=== PATIENT | male | born 1965 | race Two or more races ===

== ENCOUNTER 2016-10-12 02:31 | Emergency (ER) | payer BC, OTHER ==
[2016-10-12] MEDS ORDERED: Sodium Chloride 0.9% 1,000 ML IV ONE ×2 (02:50→04:13)
[2016-10-12] MEDS ORDERED: methylPREDNISolone Sodium Succinate 125 MG/2 ML SDV IVPUSH ONE (02:50)
[2016-10-12] MEDS ORDERED: Ondansetron 4 MG/2 ML SDV IVPUSH ONE (02:51)
[2016-10-12] MEDS ORDERED: methylPREDNISolone Sodium Succinate 125 MG/2 ML SDV ONE (02:57)
[2016-10-12] MEDS ORDERED: diphenhydrAMINE 50 MG/ML SDV IVPUSH ONE (03:11)
[2016-10-12] MEDS ORDERED: Piperacillin/Tazobactam 3.375 GM in Sodium Chloride 0.9% 100 ML IV ONE (03:11)
[2016-10-12] MEDS ORDERED: Vancomycin 500 MG SDV IV ONE (03:12)
[2016-10-12 03:16] LABS: CHLORIDE,CL 104 mmol/L (98-107); SODIUM,NA 142 mmol/L (136-145)
[2016-10-12] MEDS ORDERED: LORazepam 2 MG/ML MDV IVPUSH ONE (03:21)
--- NOTE | 2016-10-12 03:22 | EDM.PDOC ---
ED HPI GENERAL MEDICAL PROBLEM - General Chief Complaint: General Stated Complaint: chills, vomiting, diarrhea Time Seen by Provider: 10/12/16 02:40 Source of Information: Reports: Patient History Limitations: Reports: No Limitations - History of Present Illness INITIAL COMMENTS - FREE TEXT/NARRATIVE: The patient presents to the ER with complaint of chills, myalgias, shivering and trembling, nausea with vomiting x 2, diarrhea x 1, and brief episodic chest pain prior to arrival in the ER. He also describes difficulty swallowing and the feeling of "swelling of his throat" and shortness of breath as well. He denies current chest pain, orthopnea, and recent or current exercise intolerance. He reports the symptoms started at about 9 pm this evening and have increased significantly overnight. He reports about 1 week ago he had a "bug bite of his forehead" and he subsequently had swelling of his ankles and feet, swelling of his tongue and throat, and difficulty breathing. He did not seek medical attention but took multiple doses of Benadryl at the time and the symptoms resolved over 1 day. - Related Data Allergies Allergy/AdvReac Type Severity Reaction Status Date / Time No Known Allergies Allergy Verified 12/21/14 08:06 Home Meds: Home Meds ALPRAZolam [Xanax] 0.5 mg PO 10/12/16 [History] Lisinopril 10 mg PO PRN 10/12/16 [History] Past Medical History HEENT History: Reports: Allergic Rhinitis Cardiovascular History: Reports: High Cholesterol, Hypertension Respiratory History: Reports: COPD Neurological History: Reports: Migraines, Other (See Below) Other Neuro History: History of cluster headaches Psychiatric History: Reports: Anxiety - Past Surgical History GI Surgical History: Reports: Appendectomy, Cholecystectomy Social & Family History - Tobacco Use Smoking Status *Q: Current Every Day Smoker Years of Tobacco use: 27 Second Hand Smoke Exposure: Yes - Alcohol Use Days Per Week of Alcohol Use: 2 Number of Drinks Per Day: 2 Total Drinks Per Week: 4 - Recreational Drug Use Recreational Drug Use: Yes Drug Use in Last 12 Months: Yes Recreational Drug Type: Reports: LSD (Acid), Marijuana/Hashish, Methamphetamine Recreational Drug Use Frequency: Daily Recreational Drug Last Use: Daily - Living Situation & Occupation Living situation: Reports: with Significant Other Occupation: Employed ED ROS GENERAL - Review of Systems Review Of Systems: ROS reveals no pertinent complaints other than HPI. ED EXAM, GENERAL - Physical Exam Exam: See Below Exam Limited By: No Limitations General Appearance: Alert, WD/WN, No Apparent Distress, Anxious, Other (Chills and trembling ) Eye Exam: Bilateral Eye: EOMI, Normal Inspection, PERRL Ears: Normal External Exam, Normal Canal, Hearing Grossly Normal, Normal TMs Ear Exam: Bilateral Ear: Auricle Normal, Canal Normal, TM normal Nose: Normal Inspection, Normal Mucosa, No Blood Throat/Mouth: Normal Inspection, Normal Lips, Normal Teeth, Normal Gums, Normal Oropharynx, Normal Voice, No Airway Compromise Head: Atraumatic, Normocephalic Neck: Normal Inspection, Supple, Non-Tender, Full Range of Motion, Other (No nuchal rigidity.). No: Lymphadenopathy (L), Lymphadenopathy (R), Tender Lateral , Tender Midline Respiratory/Chest: No Respiratory Distress, Lungs Clear, Normal Breath Sounds, No Accessory Muscle Use, Chest Non-Tender Cardiovascular: Normal Peripheral Pulses, No Edema, No Gallop, No Murmur, No Rub , Tachycardia (Mild tachycardia with rate 100-110's.) Peripheral Pulses: 2+: Radial (L), Radial (R), Posterior Tibial (L), Posterior Tibial (R), Dorsalis Pedis (L), Dorsalis Pedis (R) GI/Abdominal: Normal Bowel Sounds, Soft, Non-Tender, No Organomegaly, No Distention. No: Guarding, Rigid, Rebound Back Exam: Normal Inspection, Full Range of Motion. No: CVA Tenderness (L), CVA Tenderness (R), Paraspinal Tenderness, Vertebral Tenderness Extremities: Normal Inspection, Normal Range of Motion, Non-Tender, No Pedal Edema, Normal Capillary Refill Neurological: Alert, Oriented, CN II-XII Intact, Normal Cognition, Normal Gait, Normal Reflexes, No Motor/Sensory Deficits Psychiatric: Normal Affect, Normal Mood Skin Exam: Warm, Dry, Intact, Normal Color, No Rash Lymphatic: No Adenopathy EKG INTERPRETATION EKG Date: 10/12/16 Rhythm: NSR Rate (Beats/Min): [address]: Normal P-Wave: Present QRS: Normal ST-T: Other (Peaked T waves) QT: Normal Comparison: No Change (Other than tachycardia and electrical interference.) EKG Interpretation Comments: Electrical interference that is significant and EKG repeated with persistent electrical interference likely secondary to patient's chills, shivering, and trembling. No evidence of ST elevation or other signs of ischemia. Course - Vital Signs Last Recorded V/S: Last Vital Signs Temp 36.3 C 10/12/16 02:32 Pulse 75 10/12/16 02:32 Resp 24 H 10/12/16 02:32 BP 154/73 H 10/12/16 02:32 Pulse Ox 100 10/12/16 02:32 - Orders/Labs/Meds Orders: Active Orders 24 hr Category Date Time Status EKG Documentation Completion [RC] ASDIRECTED Care 10/12/16 02:50 Active Chest 1V Frontal [CR] Stat Exams 10/12/16 02:50 Taken CULTURE BLOOD [BC] Stat Lab 10/12/16 02:40 Received CULTURE BLOOD [BC] Stat Lab 10/12/16 02:48 Received DRUG SCREEN, URINE [URCHEM] Stat Lab 10/12/16 02:52 Uncollected UA W/MICROSCOPIC [URIN] Stat Lab 10/12/16 02:49 Uncollected Blood Culture x2 Reflex Set [OM.PC] Stat Oth 10/12/16 02:49 Ordered Labs: Laboratory Tests 10/12/16 10/12/16 Range/Units 02:48 02:48 WBC 9.9 (4.0-10.2) K/uL RBC 6.11 H (4.33-5.41) M/uL Hgb 17.6 H D (13.1-16.8) g/dL Hct 50.7 H (39.0-49.0) % MCV 83.0 L (84.0-98.0) fL MCH 28.8 (28.2-33.3) pg MCHC 34.7 (31.7-36.0) g/dL RDW 14.3 H (11.2-14.1) % Plt Count 192 (150-350) K/uL Neut % (Auto) 80.1 H (45.0-80.0) % Lymph % (Auto) 17.4 (10.0-50.0) % [place] % (Auto) 2.1 (2.0-14.0) % Eos % (Auto) 0.3 (0.0-5.0) % Baso % (Auto) 0.1 (0.0-2.0) % Neut # (Auto) 7.91 H (1.40-7.00) K/uL Lymph # (Auto) 1.72 (0.50-3.50) K/uL [place] # (Auto) 0.21 (0.00-1.00) K/uL Eos # (Auto) 0.03 (0.00-0.50) K/uL Baso # (Auto) 0.01 (0.00-0.20) K/uL Sodium 142 (136-145) mmol/L Potassium 3.8 (3.5-5.1) mmol/L Chloride 104 (98-107) mmol/L Carbon Dioxide 24.3 (21.0-32.0) mmol/L BUN 9 (7-18) mg/dL Creatinine 1.16 (0.51-1.17) mg/dL Est Cr Clr Drug Dosing 72.07 mL/min Estimated GFR (MDRD) > 60 mL/min Glucose 130 H (74-106) mg/dL Calcium 8.9 (8.5-10.1) mg/dL Total Bilirubin 0.3 (0.2-1.0) mg/dL AST 22 (15-37) U/L ALT 39 (12-78) U/L Alkaline Phosphatase 90 (46-116) IU/L Creatine Kinase 168 (26-308) U/L Creatine Kinase Index 0.2 (0.0-2.5) % CK-MB (CK-2) 0.30 (0.00-3.60) ng/mL Troponin I 0.000 (0.000-0.056) ng/mL C-Reactive Protein 0.2 (<=0.9) mg/dL Total Protein 7.9 (6.4-8.2) g/dL Albumin 4.0 (3.4-5.0) g/dL Ethyl Alcohol 0.005 (0.000-0.080) g/dL Meds: Medications Discontinued Medications Generic Name Dose Route Start Last Admin Trade Name Freq PRN Reason Stop Dose Admin Cetirizine HCl 10 mg 10/12/16 03:11 10/12/16 03:27 Zyrtec PO 10/12/16 03:12 10 mg ONETIME ONE Administration Diphenhydramine HCl 50 mg 10/12/16 03:11 10/12/16 03:16 Benadryl IVPUSH 10/12/16 03:12 50 mg ONETIME ONE Administration Sodium Chloride 1,000 mls @ 1,000 mls/hr 10/12/16 02:50 10/12/16 02:54 Normal Saline IV 10/12/16 03:49 1,000 mls/hr .BOLUS ONE Administration Piperacillin Sod/Tazobactam 100 mls @ 200 mls/hr 10/12/16 03:11 10/12/16 04: 01 Sod 3.375 gm/ Sodium Chloride IV 10/12/16 03:40 Not Given ONETIME ONE Lorazepam 1 mg 10/12/16 03:21 10/12/16 03:28 Ativan IVPUSH 10/12/16 03:22 1 mg ONETIME ONE Administration Methylprednisolone Sodium Succinate 250 mg 10/12/16 02:50 10/12/16 02:56 Solu-Medrol IVPUSH 10/12/16 02:51 250 mg ONETIME ONE Administration Methylprednisolone Sodium Succinate Confirm 10/12/16 02:57 10/12/16 04:01 Solu-Medrol Administered 10/12/16 02:58 Not Given Dose 125 mg .ROUTE .STK-MED ONE Ondansetron HCl 4 mg 10/12/16 02:51 10/12/16 02:58 Zofran IVPUSH 10/12/16 02:52 4 mg ONETIME ONE Administration Vancomycin HCl 1,500 mg 10/12/16 03:12 10/12/16 04:01 Vancomycin IV 10/12/16 03:13 Not Given ONETIME ONE - Re-Assessments/Exams Free Text/Narrative Re-Assessment/Exam: 10/12/16 03:30 Patient complained of itching of feet and lower legs and developed hives on the soles of the feet. Departure - Departure Time of Disposition: 06:00 Disposition: Home, Self-Care 01 Clinical Impression: Hives Allergic reaction Qualifiers: Encounter type: initial encounter Qualified Code(s): T78.40XA - Allergy, unspecified, initial encounter - Discharge Information Referrals: Greg Umaña PA [Primary Care Provider] - Forms: ED Department Discharge - My Orders Last 24 Hours: My Active Orders 10/12/16 02:40 CULTURE BLOOD [BC] Stat 10/12/16 02:48 CULTURE BLOOD [BC] Stat 10/12/16 02:49 UA W/MICROSCOPIC [URIN] Stat Blood Culture x2 Reflex Set [OM.PC] Stat 10/12/16 02:50 EKG Documentation Completion [RC] ASDIRECTED Chest 1V Frontal [CR] Stat 10/12/16 02:52 DRUG SCREEN, URINE [URCHEM] Stat - Assessment/Plan Last 24 Hours: My Active Orders 10/12/16 02:40 CULTURE BLOOD [BC] Stat 10/12/16 02:48 CULTURE BLOOD [BC] Stat 10/12/16 02:49 UA W/MICROSCOPIC [URIN] Stat Blood Culture x2 Reflex Set [OM.PC] Stat 10/12/16 02:50 EKG Documentation Completion [RC] ASDIRECTED Chest 1V Frontal [CR] Stat 10/12/16 02:52 DRUG SCREEN, URINE [URCHEM] Stat Assessment:: Allergic reaction to unknown substance. Hives. Plan: 1. Solumedrol 250 mg IV. 2. Benadryl 50 mg IV. 3. Ativan 1 mg IV. 4. Cetirizine 10 mg PO. 5. NS 1 L bolus IV x 2, and 100 mL/hour following. 6. EKG, telemetry, and serial cardiac enzymes negative for acute HI. 7. Labs negative for infection. 8. Prescription for Medrol dose pack, begin 10/12/16. 9. OTC Benadryl 25-50 mg PO every 6 hours PRN itching or rash. 10. Follow up with PCP in 2-3 days if symptoms persist or sooner if symptoms worsen. 11. Return to ER with difficulty breathing or wheezing, swelling of tongue or throat, inability to swallow or speak, progressive hives or skin involvement, fever > 101 F not responsive to acetaminophen or ibuprofen, mental status changes, or other emergent concerns.
[2016-10-12] MEDS: Cetirizine 10 MG Tab PO ONE ×2 (03:27→04:11)
[2016-10-12] MEDS ORDERED: Sodium Chloride 0.9% 500 ML IV SCH (04:30)
[2016-10-12] MEDS ORDERED: Sodium Chloride 0.9% 1,000 ML IV SCH (05:00)
[2016-10-12 09:22] VITALS: BP 111/70
== END 2016-10-12 08:29 | disposition home or self-care (01) ==
LOC: LL.ED 02:31
DX: L50.9 Urticaria, unspecified (principal); T78.40XA Allergy, unspecified, initial encounter; E78.00 Pure hypercholesterolemia, unspecified; I10 Essential (primary) hypertension; J44.9 Chronic obstructive pulmonary disease, unspecified; G43.909 Migraine, unspecified, not intractable, without status migrainosus; F17.210 Nicotine dependence, cigarettes, uncomplicated; Z90.49 Acquired absence of other specified parts of digestive tract; Z98.890 Other specified postprocedural states
CPT/HCPCS: 36000; 36415; 71010; 80053; 80305; 81001; 82150; 82550; 82553; 83690; 84484; 85025; 86140; 87040; 87086; 93005; 96361; 96374; 96375; 99285; G0480; J1200; J2060; J2405; J2930; J7030; J7040; A9270-GY

== ENCOUNTER 2017-12-08 04:06 | Emergency (ER) | payer BC, OTHER ==
[2017-12-08] MEDS ORDERED: EPINEPHrine 0.3 MG/0.3 ML Pen Autoinjector ONE (04:08)
[2017-12-08] MEDS ORDERED: methylPREDNISolone Sodium Succinate 125 MG/2 ML SDV IVPUSH ONE (04:23)
--- NOTE | 2017-12-08 05:24 | EDM.PDOC ---
ED HPI GENERAL MEDICAL PROBLEM - General Chief Complaint: Allergic Reaction Stated Complaint: ALLERGIC REACTION Time Seen by Provider: 12/08/17 04:42 Source of Information: Reports: Patient History Limitations: Reports: No Limitations - History of Present Illness INITIAL COMMENTS - FREE TEXT/NARRATIVE: Patient ate plumcot around 11:30pm last evening. Noted mild allergic changes around an hour later and took Benadryl. Eventually began to develop hives/swelling of lips and tongue, and had tightness in chest and came to the ER. History of similar reaction around one year ago with an apricot. Had epipen at home but did not use it. Nurse administered epipen immediately once he presented to the ER. Throat Pain Score (Numeric/FACES): 10 - Related Data Allergies Allergy/AdvReac Type Severity Reaction Status Date / Time apricot Allergy Airway Verified 12/08/17 04:17 Tightness cat dander Allergy Sneezing Verified 12/08/17 04:17 dog dander Allergy Sneezing Verified 12/08/17 04:17 Home Meds: Home Meds ALPRAZolam [Xanax] 0.5 mg PO BEDTIME PRN 10/12/16 [History] Lisinopril 10 mg PO DAILY 10/12/16 [History] Past Medical History HEENT History: Reports: Allergic Rhinitis Cardiovascular History: Reports: High Cholesterol, Hypertension Respiratory History: Reports: COPD Neurological History: Reports: Migraines, Other (See Below) Other Neuro History: History of cluster headaches Psychiatric History: Reports: Anxiety Endocrine/Metabolic History: Reports: None Hematologic History: Reports: None Immunologic History: Reports: None Oncologic (Cancer) History: Reports: None - Past Surgical History GI Surgical History: Reports: Appendectomy, Cholecystectomy Musculoskeletal Surgical History: Reports: Arthroscopic Knee, Shoulder Surgery Social & Family History - Caffeine Use Caffeine Use: Reports: Coffee - Living Situation & Occupation Living situation: Reports: with Significant Other Occupation: Employed ED ROS ALLERGIC REACTION - Review of Systems Review Of Systems: See Below Constitutional: Reports: No Symptoms HEENT: Reports: Rhinitis Respiratory: Reports: Shortness of Breath. Denies: Wheezing, Pleuritic Chest Pain, Sputum, Hemoptysis Cardiovascular: Reports: No Symptoms. Denies: Chest Pain GI/Abdominal: Reports: No Symptoms : Reports: No Symptoms Musculoskeletal: Reports: No Symptoms Skin: Reports: Rash Neurological: Reports: No Symptoms Psychiatric: Reports: No Symptoms Immunologic: Reports: Food Allergy Free Text/Narrative/Comment: Lips and tongue have swelling ED EXAM GENERAL NO PERIP PULSE - Physical Exam Exam: See Below Exam Limited By: No Limitations General Appearance: Alert, WD/WN, No Apparent Distress (Patient already improving after receiving EpiPen during nursing assessment. ) Eye Exam: Bilateral Eye: EOMI, PERRL Ears: Normal External Exam, Normal Canal Nose: Normal Inspection Throat/Mouth: Normal Lips (no obvious swelling noted), Normal Gums, Normal Oropharynx, Normal Voice, No Airway Compromise, Other (Tongue appears to be within normal limits at this point in time) Head: Atraumatic, Normocephalic Neck: Normal Inspection, Supple, Non-Tender, Full Range of Motion Respiratory/Chest: No Respiratory Distress, Lungs Clear, No Accessory Muscle Use Cardiovascular: Regular Rate, Rhythm, No Edema, No Murmur GI/Abdominal: Soft, Non-Tender (Male) Exam: Deferred Rectal (Males) Exam: Deferred Back Exam: Normal Inspection Extremities: Normal Inspection, No Pedal Edema, Normal Capillary Refill Neurological: Alert, Oriented, Normal Cognition, No Motor/Sensory Deficits Psychiatric: Normal Affect, Normal Mood Skin Exam: Warm, Dry, Other (urticaria, mild) Course - Vital Signs Last Recorded V/S: Last Vital Signs Temp Pulse 81 12/08/17 04:35 Resp 17 12/08/17 05:50 BP 103/62 12/08/17 05:50 Pulse Ox 97 12/08/17 05:50 - Orders/Labs/Meds Meds: Medications Discontinued Medications Generic Name Dose Route Start Last Admin Trade Name Jerad PRN Reason Stop Dose Admin Epinephrine HCl Confirm 12/08/17 04:08 12/08/17 04:08 Epipen Administered 12/08/17 04:09 0.3 mg Dose Administration 0.3 mg .ROUTE .STK-MED ONE Methylprednisolone Sodium Succinate 125 mg 12/08/17 04:23 12/08/17 04:39 Solu-Medrol IVPUSH 12/08/17 04:24 125 mg ONETIME ONE Administration - Re-Assessments/Exams Free Text/Narrative Re-Assessment/Exam: 12/08/17 05:32 Patient experienced good improvement with the EpiPen. Solumedrol also given. Plan is to observe for an additional hour. Patient will be able to go home if he remains improved. Swelling and hives resolved. Vital signs stable. No current SOB. Departure - Departure Time of Disposition: 06:40 Disposition: Home, Self-Care 01 Condition: Good Clinical Impression: Allergic reaction Qualifiers: Encounter type: initial encounter Qualified Code(s): T78.40XA - Allergy, unspecified, initial encounter - Discharge Information *PRESCRIPTION DRUG MONITORING PROGRAM REVIEWED*: Not Applicable *COPY OF PRESCRIPTION DRUG MONITORING REPORT IN PATIENT LARRY: Not Applicable Instructions: Epinephrine Injection Referrals: Greg Umaña PA [Primary Care Provider] - Additional Instructions: USE YOUR EPIPEN in the future if you have similar problems develop again! That is why you have it available to use at home! :) Take Benadryl 50mg every 6 hours today for 24 hours. Return to ER if you redevelop shortness of breath/swelling/similar symptoms (or call 911 if severe) Avoid all apricots and hybrids of apricots.
[2017-12-08 06:38] VITALS: BP 103/62
== END 2017-12-08 06:05 | disposition home or self-care (01) ==
LOC: LL.ED 04:06
DX: L50.0 Allergic urticaria (principal); I10 Essential (primary) hypertension; Z91.018 Allergy to other foods; Z91.09 Other allergy status, other than to drugs and biological substances
CPT/HCPCS: 96372; 96374; 99284; A9270-GY; J2930

== ENCOUNTER 2018-08-29 12:20 | Observation (INO) | payer BC ==
[2018-08-29] MEDS ORDERED: Aspirin 81 MG Tab.Chew CHEW ONE (12:26)
[2018-08-29] MEDS ORDERED: Famotidine 20 MG/2 ML SDV IVPUSH ONE (12:26)
[2018-08-29] MEDS ORDERED: Ticagrelor 90 MG Tab PO ONE (12:26)
--- NOTE | 2018-08-29 12:26 | EDM.PDOC ---
ED HPI GENERAL MEDICAL PROBLEM - General Chief Complaint: Back Pain or Injury Stated Complaint: Back Pain Time Seen by Provider: 08/29/18 12:20 Source of Information: Reports: Patient, Family (), Old Records ([facility] chart/EMR), Other ([facility] EMR) History Limitations: Reports: No Limitations - History of Present Illness INITIAL COMMENTS - FREE TEXT/NARRATIVE: The patient was brought to the emergency room via private automobile by his for evaluation of multiple symptoms, including sudden onset progression of his left scapular pain after chiropractic treatment earlier this morning at 11: 15 a.m. He rates his scapular pain as sharp and currently rates this at 9-10. He was hitting some baseballs in a batting cage 3 days ago with a muscle strain at that time, however no other significant injury, neurological deficits, paresthesias, etc. He also did have a 4 hour plane trip 2 days ago with no known leg swelling, pain, etc. After chiropractic treatment as above the patient he began experiencing some nausea, diaphoresis, shortness of breath, dizziness, and 5/10 chest pressure with no radiation of this pressure. The patient denies any heart flutter, orthostasis, orthopnea, paresthesias, recent decreased exercise tolerance, or any other anginal-type symptoms. He did not take any medications for his symptoms this morning, however he did take 200 mg of ibuprofen, cold packs, and muscle rub over the weekend with last doses yesterday evening. No recent history of abdominal pain, heartburn, emesis, diarrhea, melena, gross hematochezia, or any food intolerance, including fatty foods, etc.. He denies any current UTI symptoms, hematuria, colic, etc. 01/26. He does complain of diffuse bilateral mostly occipital sharp 9/10 headache similar to symptoms in the past. No history of recent visual changes, diplopia , change in mental status, or other change in neurological status. The patient also denies any recent fever, cough, wheezing, dyspnea, etc.. Onset: Today, Gradual Onset Date: 08/29/18 Onset Time: 11:30 Duration: Constant, Getting Worse Location: Reports: Head (Headache as above), Chest (Retrosternal previous left scapular muscles strain as above). Denies: Face, Neck, Abdomen, Back, Pelvis, Upper Extremity, Left, Upper Extremity, Right, Lower Extremity, Left, Radiates to Quality: Reports: Pressure (Chest), Sharp (Left scapula) Severity: Severe Improves with: Reports: Rest Worsens with: Reports: Movement Context: Reports: Trauma (Minor as above). Denies: Sick Contact Associated Symptoms: Reports: Chest Pain, Diaphoresis, Headaches, Nausea/ Vomiting (As above), Shortness of Breath. 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: NSAIDS (As above), Other Medication(s) (As above) headache Pain Score (Numeric/FACES): 9 - Related Data Allergies Allergy/AdvReac Type Severity Reaction Status Date / Time apricot Allergy Airway Verified 08/29/18 14:20 Tightness cat dander Allergy Sneezing Verified 08/29/18 14:20 dog dander Allergy Sneezing Verified 08/29/18 14:20 nectarine Allergy Airway Uncoded 08/29/18 14:20 Tightness tangerine Allergy Airway Uncoded 08/29/18 14:20 Tightness Home Meds: Home Meds ALPRAZolam [Xanax] 0.5 mg PO BEDTIME PRN 10/12/16 [History] Lisinopril 5 mg PO BEDTIME 10/12/16 [History] Ibuprofen [Advil] 200 mg PO ASDIRECTED 02/13/18 [History] SUMAtriptan [Imitrex] 1 tab PO ASDIRECTED PRN 02/13/18 [History] Aspirin 81 mg PO QAM 08/29/18 [History] Cholecalciferol (Vitamin D3) [Vitamin D3] 1,000 units PO QAM 08/29/18 [History] Escitalopram [Lexapro] 10 mg PO QAM 08/29/18 [History] Loratadine [Claritin] 10 mg PO QAM 08/29/18 [History] Past Medical History HEENT History: Reports: Allergic Rhinitis, Impaired Vision, Other (See Below). Denies: Hard of Hearing Other HEENT History: Patient does wear reading glasses. No current treatment for his borderline bilateral hearing loss. Cardiovascular History: Reports: High Cholesterol, Hypertension, Other (See Below). Denies: Afib, Arrhythmia, Blood Clots/VTE/DVT, CAD, Heart Failure, Heart Murmur, KS, Pacemaker, PTCA, Syncope Other Cardiovascular History: Grade 1 diastolic dysfunction. Dyslipidemia with no current medical therapy. Respiratory History: Reports: COPD, Intubation, Previous. Denies: Asthma, Bronchitis, Recurrent, Intubation, Difficult, PE, Pneumonia, Recurrent, Pneumothorax, Sleep Apnea, TB Gastrointestinal History: Reports: Cholelithiasis. Denies: Bowel Obstruction, Celiac Disease, Chronic Constipation, Chronic Diarrhea, Fecal Incontinence, GERD , GI Bleed, Hepatitis, Hiatal Hernia, Inflammatory Bowel Disease, Irritable Bowel Syndrome, Jaundice, Pancreatitis, PUD Genitourinary History: Reports: None. Denies: Acute Renal Failure, BPH, Chronic Renal Insuffiency, Renal Calculus, STD, Urinary Incontinence, UTI, Recurrent Musculoskeletal History: Reports: Amputation, Arthritis, Fracture, Osteoporosis , Other (See Below). Denies: Back Pain, Chronic, Fibromyalgia, Gout, Neck Pain , Chronic, RA, SLE Other Musculoskeletal History: Left fourth metacarpal fracture at age 17 with pin placement. Bilateral knuckle fractures in his teenage years with no surgeries. Neurological History: Reports: Concussion, Headaches, Chronic, Head Trauma, Migraines, Other (See Below). 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 Possible head concussion while playing football as a teenager. Psychiatric History: Reports: Addiction, Anxiety, Depression, Panic Attack, Psych Hospitalization(s), Suicide Attempt, Suicidal Ideation. Denies: Abuse, Victim of, ADD, ADHD, Hallucinations, Psychosis, PTSD Other Psychiatric History: Attempted medication overdose about age 16 and 17 and in his early 20s with psychiatric hospitalizations on both of these occasions. Daily marijuana use as below. Endocrine/Metabolic History: Reports: None. Denies: Diabetes, Type I, Diabetes , Type II, Diabetes Mellitus, Type 3c, Hypothyroidism, IDDM Hematologic History: Reports: None. Denies: Anemia, Blood Transfusion(s), Iron Deficiency Immunologic History: Reports: None. Denies: AIDS, HIV, SLE Oncologic (Cancer) History: Reports: None. Denies: Basal Cell Carcinoma, Hodgkin's Lymphoma, Leukemia, Lymphoma, Malignant Melanoma, Non-Hodgkin's Lymphoma, Squamous Cell Carcinoma Dermatologic History: Reports: None. Denies: Eczema, Psoriasis - Infectious Disease History Infectious Disease History: Reports: Chicken Pox. Denies: C-Difficile, Measles , Meningitis, Mononucleosis, MRSA, Mumps, Pertussis (Whooping Cough), Rheumatic Fever, Rubella, Scarlet Fever, Shingles, TB, VRE - Past Surgical History Head Surgeries/Procedures: Reports: None HEENT Surgical History: Reports: Oral Surgery, Other (See Below). Denies: Adenoidectomy, Cataract Surgery, Eye Surgery, Laser Surgery, Myringotomy w Tube( s), Naso-Sinus Surgery, Tonsillectomy Other HEENT Surgeries/Procedures: [place] teeth extraction 4 with additional multiple teeth extractions. Cardiovascular Surgical History: Reports: None. Denies: Varicose Respiratory Surgical History: Reports: None. Denies: Thoracentesis GI Surgical History: Reports: Appendectomy, Cholecystectomy, Other (See Below) Other GI Surgeries/Procedures: Appendectomy in 2000. Laparoscopic cholecystectomy on 08/07/02 colonoscopy in about 1994. EGD on 06/12/02. Male Surgical History: Reports: Circumcision, Other (See Below). Denies: Vasectomy Other Male Surgeries/Procedures: Circumcision as an . Endocrine Surgical History: Reports: None. Denies: Thyroid Biopsy Neurological Surgical History: Denies: C-Spine, Discectomy, Laminectomy, Lumbar Spine, Sacral Spine, Spinal Fusion, Thoracic Spine, Vertebroplasty Musculoskeletal Surgical History: Reports: Arthroscopic Knee, Arthroscopic Procedure, Carpal Tunnel, ORIF, Shoulder Surgery, Other (See Below). Denies: Ganglion Cyst, Joint Replacement Other Musculoskeletal Surgeries/Procedures:: Multiple orthopedic surgeries as above, including left knee arthroscopic surgery in about 2010, right-sided shoulder surgery in 2001, left-sided shoulder surgery in 2005. ORIF pin placement of left fourth metacarpal fracture at age 17. Right ulnar bone graft and shortening in his early 30s initially in 1997 and then repeated in 1968. 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 Oncologic Surgical History: Reports: None Dermatological Surgical History: Reports: None. Denies: Skin Biopsy - Past Imaging History Past Imaging History: Reports: Bone Scan (Limited bone scan of the thoracic and lumbar spines on 02/24/07.), Cardiac Echo (Echocardiogram on 03/26/14 with ejection fraction of 5560 percent and otherwise results as above.), CAT Scan ( CT of the head on 11/20/13. CT of the lumbar spine on 02/04/07.), MRI (MRI of the Right knee on 06/28/17 indicating a medial meniscal tear. MRI of the left elbow on 03/11/16 and 02/22/15. MRI of the brain on 11/21/13.), Stress Testing (Mildly Positive Cardiolite stress test on 03/22/14 with no further heart catheterization.). Denies: Angiography Social & Family History - Family History HEENT: Reports: None. Denies: Glaucoma, Macular Degeneration, Retinal Detachment Cardiac: Reports: Bypass, CAD, High Cholesterol, Hypertension, KS, Stent, Other (See Below). Denies: AICD, Aneurysm, Arrhythmia, Blood Clots/VTE/DVT, Heart Failure, Heart Murmur, Pacemaker, PVD/COD, Syncope Other Cardiac Family History: Maternal aunt with CABG in her 70s with history of multiple MIs fatal in her 90s. Maternal uncle with PTCA/stent in his 60s. Maternal grandfather with fatal unknown type of heart disease in his 70s. Brother with PTCA/stent at age 60. Hypertension in mother, maternal aunts 4, sisters 2, brothers 2, and father. Hyperlipidemia in mother and sister. Father with multiple MIs initially in his 70s and previous multiple PTCA/stents and CABG with CVAs as below. Respiratory: Reports: COPD, Other (See Below). Denies: Asthma, PE, Pneumothorax , Sleep Apnea, TB Other Respiratory Family Hisory: Paternal uncle with COPD and history of tobacco use. Maternal uncle with COPD and asbestos exposure. GI: Reports: None. Denies: Celiac Disease, Cholelithiasis, Colon Polyps, GERD, GI bleed, Inflammatory Bowel Disease, Irritable Bowel Syndrome, Jaundice, PUD : Reports: None. Denies: Renal Calculus, Renal Disease/Insufficiency OBGYN: Reports: None. Denies: Endometriosis, Recurrent Spontaneous Musculoskeletal: Reports: None. Denies: Arthritis, Gout, Osteoarthritis, RA, SLE Neurological: Reports: CVA, Dementia, Other (See Below). Denies: Alzheimers Disease, Migraines, Parkinson's, Seizure, TIA, Vertigo Other Neurological Family History: Maternal uncles 2 with dementia in their early 70s. Father with recurrent CVAs and secondary dementia with fatal CVA at age 84. Maternal uncle with fatal CVA in his late 60s. Psychiatric: Reports: None, Anxiety, Depression, Other (See Below). Denies: Psych Hospitalization(s), PTSD, Suicide Attempt Other Psychiatric Family History: Sisters 2 with anxiety depression disorder. Endocrine/Metabolic: Reports: Diabetes, type II, IDDM, Other (See Below). Denies: Diabetes, Type I, Diabetes Mellitus, Type 3c Other Endocrine/Metabolic Family History: Paternal uncle with IDDM. Patient denies borderline hyperglycemia and hypothyroidism in his mother. Hematologic: Reports: None. Denies: Anemia, SLE Immunologic: Reports: None. Denies: AIDS, HIV, SLE Dermatologic: Reports: None. Denies: Eczema, Psoriasis Oncologic: Reports: Other (See Below) Other Oncologic Family History: Paternal aunt with breast cancer in her 70s. Sister with breast cancer in her late 40s possible ovarian metastases? Mother with cervical cancer in her early 30s. Maternal grandmother with cervical versus uterine cancer fatal in her 60s. - Tobacco Use Smoking Status *Q: Current Every Day Smoker Tobacco Use Within Last Twelve Months: Cigarettes Years of Tobacco use: 32 Packs/Tins Daily: 0.5 Packs/Tins Daily Comment: Smoking at age 21 with maximum use of 1.5 packs per day. Used Tobacco, but Quit: No Smoking Cessation Information Provided To Patient: No Second Hand Smoke Exposure: No - Caffeine Use Caffeine Use: Reports: Coffee (2 cups per day), Soda (1 soda per day). Denies: Energy Drinks, Tea - Alcohol Use Alcohol Use History: Yes Days Per Week of Alcohol Use: 0 Number of Drinks Per Day: 1 Number of Drinks Per Day Comment: Usually mixed drinks about 3 times per year. No previous DWIs, problems with alcohol abuse, etc. Total Drinks Per Week: 0 Alcohol Use in Last Twelve Months: Yes Alcohol Use Frequency: Rarely - Recreational Drug Use Recreational Drug Use: Yes Drug Use in Last 12 Months: Yes Recreational Drug Type: Reports: Marijuana/Hashish (Daily marijuana use since age 17). Denies: Amphetamines (Speed), Ativan, Benzodiazepines, Cocaine, Heroin , Inhalants (Glues, Solvents, Aerosols), LSD (Acid), Methamphetamine, Morphine, Oxycodone - Sexual History Sexual History: Reports: Single Partner - Living Situation & Occupation Living situation: Reports: (2014. 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 ED ROS GENERAL - Review of Systems Review Of Systems: ROS reveals no pertinent complaints other than HPI. ED EXAM,LOWER BACK PAIN/INJURY - Physical Exam Exam: See Below Exam Limited By: No Limitations General Appearance: Alert, WD/WN, No Apparent Distress, Anxious (Moderate) Eye Exam: Bilateral Eye: EOMI, Normal Inspection (No nystagmus), Other Ears: Normal External Exam, Normal Canal, Normal TMs, Hearing Loss (Mild bilateral with no therapy). No: Hearing Grossly Normal Nose: Normal Inspection, Normal Mucosa, No Blood. No: Clear Rhinorrhea Throat/Mouth: Normal Lips, Normal Gums, Normal Oropharynx, Normal Voice, No Airway Compromise. No: Normal Teeth (Partial upper dentures for one missing tooth additional lower missing teeth), Dysphagia, Perioral Cyanosis Head: Atraumatic, Normocephalic. No: Facial Swelling, Facial Tenderness, Sinus Tenderness Neck: Normal Inspection, Supple, Non-Tender, Full Range of Motion. No: Carotid Bruit, Lymphadenopathy (L), Lymphadenopathy (R), Thyromegaly Respiratory/Chest: No Respiratory Distress, Lungs Clear, Normal Breath Sounds, No Accessory Muscle Use, Chest Non-Tender. No: Pleural Rub, Retractions Cardiovascular: Normal Peripheral Pulses, Regular Rate, Rhythm, No Edema, No Gallop, No JVD, No Murmur, No Rub. No: Gallop/S3, Gallop/S4, Friction Rub GI/Abdominal: Normal Bowel Sounds, Soft, Non-Tender, No Organomegaly, No Distention, No Abnormal Bruit, No Mass. No: Pelvis Stable, Guarding (Male) Exam: Deferred Rectal (Males) Exam: Deferred Back Exam: Normal Inspection, Full Range of Motion. No: CVA Tenderness (L), CVA Tenderness (R), Muscle Spasm Extremities: No Pedal Edema, Normal Capillary Refill, Limited Range of Motion ( On his left arm secondary to moderate to severe left scapular muscle pain with movement with no ecchymosis, muscle spasms, etc.), Other (Amputation of the distal phalanx of digit #3 of the left hand). No: Arm Pain, Selene's Sign Neurological: Alert, Normal Mood/Affect, Normal Dorsiflexion, CN II-XII Intact, Normal Plantar Flexion, Normal Gait, Normal Reflexes, No Motor/Sensory Deficits , Oriented x 3 Psychiatric: Anxious (Moderate), Depressed Mood (Borderline) Skin Exam: Warm, Intact, Normal Color, No Rash, Diaphoretic (Mild on arrival). No: Ecchymosis, Increased Warmth, Lymphangitis, Petechiae, Wound/Incision Lymphatic: No Adenopathy EKG INTERPRETATION EKG Date: 08/29/18 Time: 12:39 Rhythm: NSR Rate (Beats/Min): [address] [employer]: Normal (Neutral cardiac axis) P-Wave: Enlarged (Able mild diffuse biphasic P waves) QRS: Normal (0.09 seconds with improvement of previous repolarization changes) ST-T: Normal QT: Normal SD/PQ Interval: 0.17 seconds Comparison: No Change (At time of Cardiolite stress test on 03/22/14) EKG Interpretation Comments: No acute ischemic changes Course - Vital Signs Last Recorded V/S: Last Vital Signs Temp 36.6 C 08/29/18 14:07 Pulse 79 08/29/18 14:39 Resp 20 08/29/18 14:39 BP 112/77 08/29/18 14:39 Pulse Ox 100 08/29/18 14:39 Vital Signs - 24 hr 08/29/18 08/29/18 08/29/18 12:20 12:26 12:45 Temperature [ 36.8 C 36.6 C Temporal] Pulse, 77 79 Peripheral [ Left Pulse Oximetry] Pulse, 70 Peripheral [ Right Pulse Oximetry] Respiratory 29 H 18 25 H Rate Blood Pressure 134/84 138/86 149/86 H [Right Upper Arm] O2 Sat by Pulse 95 95 97 Oximetry O2 Sat by Pulse 93 L Oximetry [ Nasal Cannula] O2 Sat by Pulse 90 L Oximetry [Room Air] 08/29/18 08/29/18 14:07 14:39 Temperature [ 36.6 C Temporal] Pulse, 73 Peripheral [ Left Pulse Oximetry] Pulse, 79 Peripheral [ Right Pulse Oximetry] Respiratory 22 H 20 Rate Blood Pressure 145/85 H 112/77 [Right Upper Arm] O2 Sat by Pulse 98 100 Oximetry O2 Sat by Pulse Oximetry [ Nasal Cannula] O2 Sat by Pulse Oximetry [Room Air] - Orders/Labs/Meds Orders: Active Orders 24 hr Category Date Time Status Cardiac Monitoring [RC] . DIRECTED Care 08/29/18 12:26 Active EKG Documentation Completion [RC] ASDIRECTED Care 08/29/18 12:26 Active Oxygen Therapy, ED [RC] CONTINUOUS Care 08/29/18 12:26 Active Peripheral IV Care [RC] . DIRECTED Care 08/29/18 12:26 Active Pulse Oximetry [RC] CONTINUOUS Care 08/29/18 12:26 Active Up With Assistance [RC] PFP Care 08/29/18 12:26 Active Vital Signs [RC] PFP Care 08/29/18 12:26 Active Nothing per Oral Now Diet [DIET] Diet 08/29/18 Breakfast Active Chest 1V Frontal [CR] Stat Exams 08/29/18 12:26 Taken HYDROmorphone [Dilaudid] Med 08/29/18 13:25 Active 1 mg IVPUSH Q4H PRN Lactated Ringers [Ringers, Lactated] 1,000 ml Med 08/29/18 14:45 Ordered IV ASDIRECTED Sodium Chloride 0.9% [Saline Flush] Med 08/29/18 12:26 Active 10 ml FLUSH ASDIRECTED PRN Obtain Past Medical Record [OM.PC] Urgent Oth 08/29/18 12:26 Active Peripheral IV Insertion Adult [OM.PC] Stat Oth 08/29/18 12:26 Ordered Resuscitation Status Stat Resus Stat 08/29/18 12:26 Ordered EKG 12 Lead [EK] Stat Ther 08/29/18 12:26 Ordered Medication Orders Hydromorphone HCl (Dilaudid) 1 mg IVPUSH Q4H PRN PRN Reason: Pain (severe 7-10) Last Admin: 08/29/18 13:35 Dose: 1 mg Lactated Ringer's (Ringers, Lactated) 1,000 mls @ 125 mls/hr IV ASDIRECTED MARY Last Admin: 08/29/18 14:39 Dose: 125 mls/hr Sodium Chloride (Saline Flush) 10 ml FLUSH ASDIRECTED PRN PRN Reason: Keep Vein Open Last Admin: 08/29/18 14:15 Dose: 10 ml Admin: 08/29/18 13:38 Dose: 10 ml Admin: 08/29/18 12:48 Dose: 10 ml Admin: 08/29/18 12:47 Dose: 10 ml Admin: 08/29/18 12:46 Dose: 10 ml Admin: 08/29/18 12:45 Dose: 10 ml Labs: Laboratory Tests 08/29/18 08/29/18 08/29/18 Range/Units 12:26 12:26 12:26 WBC 7.0 (4.0-10.2) K/uL RBC 5.67 H (4.33-5.41) M/uL Hgb 16.3 (13.1-16.8) g/dL Hct 47.4 (39.0-49.0) % MCV 83.6 L (84.0-98.0) fL MCH 28.7 (28.2-33.3) pg MCHC 34.4 (31.7-36.0) g/dL RDW 14.7 H (11.2-14.1) % Plt Count 178 (150-350) K/uL Neut % (Auto) 43.8 L (45.0-80.0) % Lymph % (Auto) 43.9 (10.0-50.0) % Meagher % (Auto) 9.3 (2.0-14.0) % Eos % (Auto) 2.6 (0.0-5.0) % Baso % (Auto) 0.4 (0.0-2.0) % Neut # (Auto) 3.07 (1.40-7.00) K/uL Lymph # (Auto) 3.07 (0.50-3.50) K/uL Meagher # (Auto) 0.65 (0.00-1.00) K/uL Eos # (Auto) 0.18 (0.00-0.50) K/uL Baso # (Auto) 0.03 (0.00-0.20) K/uL PT 10.7 (9.5-12.0) SEC INR 1.0 APTT 27.8 (21.0-31.3) SEC D-Dimer, Quantitative < 100 (0-400) ng/mL Sodium (136-145) mmol/L Potassium (3.5-5.1) mmol/L Chloride (98-107) mmol/L Carbon Dioxide (21.0-32.0) mmol/L BUN (7-18) mg/dL Creatinine (0.51-1.17) mg/dL Est Cr Clr Drug Dosing mL/min Estimated GFR (MDRD) mL/min Glucose (74-106) mg/dL Lactic Acid (0.4-2.0) mmol/L Uric Acid (2.6-7.2) mg/dL Calcium (8.5-10.1) mg/dL Magnesium (1.8-2.4) mg/dL Total Bilirubin (0.2-1.0) mg/dL AST (15-37) U/L ALT (12-78) U/L Alkaline Phosphatase (46-116) IU/L Creatine Kinase (26-308) U/L Creatine Kinase Index (0.0-2.5) % CK-MB (CK-2) (0.00-3.60) ng/mL Troponin I (0.000-0.056) ng/mL NT-Pro-B Natriuret Pep (0-125) pg/mL Total Protein (6.4-8.2) g/dL Albumin (3.4-5.0) g/dL TSH, Ultra Sensitive (0.358-3.740) mIU/mL 08/29/18 08/29/18 Range/Units 12:26 12:26 WBC (4.0-10.2) K/uL RBC (4.33-5.41) M/uL Hgb (13.1-16.8) g/dL Hct (39.0-49.0) % MCV (84.0-98.0) fL MCH (28.2-33.3) pg MCHC (31.7-36.0) g/dL RDW (11.2-14.1) % Plt Count (150-350) K/uL Neut % (Auto) (45.0-80.0) % Lymph % (Auto) (10.0-50.0) % Meagher % (Auto) (2.0-14.0) % Eos % (Auto) (0.0-5.0) % Baso % (Auto) (0.0-2.0) % Neut # (Auto) (1.40-7.00) K/uL Lymph # (Auto) (0.50-3.50) K/uL Meagher # (Auto) (0.00-1.00) K/uL Eos # (Auto) (0.00-0.50) K/uL Baso # (Auto) (0.00-0.20) K/uL PT (9.5-12.0) SEC INR APTT (21.0-31.3) SEC D-Dimer, Quantitative (0-400) ng/mL Sodium 140 (136-145) mmol/L Potassium 3.5 (3.5-5.1) mmol/L Chloride 104 (98-107) mmol/L Carbon Dioxide 19.6 L (21.0-32.0) mmol/L BUN 8 (7-18) mg/dL Creatinine 0.87 (0.51-1.17) mg/dL Est Cr Clr Drug Dosing 100.22 mL/min Estimated GFR (MDRD) > 60 mL/min Glucose 105 (74-106) mg/dL Lactic Acid 3.8 H (0.4-2.0) mmol/L Uric Acid 4.8 (2.6-7.2) mg/dL Calcium 9.3 (8.5-10.1) mg/dL Magnesium 2.2 (1.8-2.4) mg/dL Total Bilirubin 0.6 (0.2-1.0) mg/dL AST 29 (15-37) U/L ALT 41 (12-78) U/L Alkaline Phosphatase 92 (46-116) IU/L Creatine Kinase 573 H (26-308) U/L Creatine Kinase Index 0.1 (0.0-2.5) % CK-MB (CK-2) 0.70 (0.00-3.60) ng/mL Troponin I 0.000 (0.000-0.056) ng/mL NT-Pro-B Natriuret Pep 27 (0-125) pg/mL Total Protein 8.2 (6.4-8.2) g/dL Albumin 4.2 (3.4-5.0) g/dL TSH, Ultra Sensitive 1.340 (0.358-3.740) mIU/mL Meds: Medications Generic Name Dose Route Start Last Admin Trade Name Freq PRN Reason Stop Dose Admin Hydromorphone HCl 1 mg 08/29/18 13:25 08/29/18 13:35 Dilaudid IVPUSH 1 mg Q4H PRN Administration Pain (severe 7-10) Lactated Ringer's 1,000 mls @ 125 mls/hr 08/29/18 14:45 08/29/18 14:39 Ringers, Lactated IV 125 mls/hr ASDIRECTED MARY Administration Sodium Chloride 10 ml 08/29/18 12:26 08/29/18 14:15 Saline Flush FLUSH 10 ml ASDIRECTED PRN Administration Keep Vein Open Discontinued Medications Generic Name Dose Route Start Last Admin Trade Name Freq PRN Reason Stop Dose Admin Aspirin 324 mg 08/29/18 12:26 08/29/18 12:35 Aspirin CHEW 08/29/18 12:27 324 mg ONETIME ONE Administration Famotidine 40 mg 08/29/18 12:26 08/29/18 12:39 Pepcid IVPUSH 08/29/18 12:27 40 mg ONETIME ONE Administration Lactated Ringer's 1,000 mls @ 999 mls/hr 08/29/18 13:24 08/29/18 13:34 Ringers, Lactated IV 08/29/18 14:24 999 mls/hr .BOLUS ONE Administration Lorazepam 1 mg 08/29/18 12:30 08/29/18 12:40 Ativan IVPUSH 08/29/18 12:31 1 mg ONETIME ONE Administration Metoclopramide HCl 10 mg 08/29/18 14:10 08/29/18 14:15 Reglan IVPUSH 08/29/18 14:11 10 mg ONETIME ONE Administration Morphine Sulfate 2 mg 08/29/18 12:41 08/29/18 12:53 Morphine IVPUSH 08/29/18 12:42 2 mg ONETIME ONE Administration Ondansetron HCl 4 mg 08/29/18 12:41 08/29/18 12:45 Zofran IVPUSH 08/29/18 12:42 4 mg ONETIME ONE Administration Ticagrelor 180 mg 08/29/18 12:26 08/29/18 12:36 Brilinta PO 08/29/18 12:27 180 mg ONETIME ONE Administration - Radiology Interpretation Free Text/Narrative:: vehicle monitor technician shows normal sinus rhythm with heart rate in the 70s-80s with no extrasystoles or other cardiac arrhythmia Chest X-ray, portable, shows some borderline pulmonary obstructive disease with no cardiomegaly, CHF, pulmonary infiltrate, pneumothorax, etc. Departure - Departure Time of Disposition: 15:45 Disposition: Refer to Observation Condition: Good Clinical Impression: COPD, Mild chronic obstructive pulmonary disease, HTN, Essential hypertension, Dyslipidemia, Muscle strain, Lactic acid increased, Mixed anxiety depressive disorder, Tobacco abuse counseling, Illicit drug use, continuous Chest pain Qualifiers: Chest pain type: unspecified Qualified Code(s): R07.9 - Chest pain, unspecified Osteoarthritis Qualifiers: Osteoarthritis location: multiple joints Osteoarthritis type: primary Qualified Code(s): M15.0 - Primary generalized (osteo)arthritis Headache Qualifiers: Headache type: tension-type Headache chronicity pattern: acute headache Intractability: not intractable Qualified Code(s): G44.209 - Tension-type headache, unspecified, not intractable - Discharge Information *PRESCRIPTION DRUG MONITORING PROGRAM REVIEWED*: Not Applicable *COPY OF PRESCRIPTION DRUG MONITORING REPORT IN PATIENT LARRY: Not Applicable - Problem List & Annotations (1) Chest pain SNOMED Code(s): 07713333 Code(s): R07.9 - CHEST PAIN, UNSPECIFIED Status: Acute Priority: High Current Visit: Yes Onset Date: 08/29/18 Annotation/Comment:: Chest pain protocol initiated upon patient's arrival to the emergency room. Note previous borderline Cardiolite stress test on 04/01/14 with cardiology consultation at [facility], however only an echocardiogram was performed at that time. Initiate standard rule out [place] orders. Cardiology consultation depending on his clinical course with repeat Cardiolite stress test and/or repeat cardiology referral recommended after discharge. Bobcat work excuse was completed today indicating today's evaluation and hospitalization. The patient was placed in observation status for treatment of multiple symptoms as above for further treatment and evaluation. Initiate standard rule out [place] orders. Qualifiers: Chest pain type: unspecified Qualified Code(s): R07.9 - Chest pain, unspecified (2) Muscle strain SNOMED Code(s): 14102854 Code(s): T14.8XXA - OTHER INJURY OF UNSPECIFIED BODY REGION, INITIAL ENCOUNTER Status: Acute Priority: High Current Visit: Yes Onset Date: Annotation/Comment:: Moderate left scapular/muscle sprain as above with moderate CK elevation. No evidence of rhabdomyolysis. Aggressive IV hydration as above. Continue to observe renal status, etc. closely. Repeat labs in the a.m. (3) Headache SNOMED Code(s): 47684445 Code(s): R51 - HEADACHE Status: Acute Priority: High Current Visit: Yes Onset Date: 08/29/18 Annotation/Comment:: Exacerbation of his recurrent mixed high-grade headaches after chiropractic treatment as above. Aggressive treatment in the emergency room as above. Continue to observe symptoms closely. No neurological deficits, etc. Qualifiers: Headache type: tension-type Headache chronicity pattern: acute headache Intractability: not intractable Qualified Code(s): G44.209 - Tension-type headache, unspecified, not intractable (4) Lactic acid increased SNOMED Code(s): 43678830 Code(s): E87.2 - ACIDOSIS Status: Acute Priority: High Current Visit: Yes Onset Date: 08/29/18 Annotation/Comment:: Aggressive IV fluids initiated in the emergency room as above. No fever, leukocytosis, or sign of sepsis. Repeat lactic acid level with next set of cardiac enzymes and also in the a.m. (5) Dyslipidemia SNOMED Code(s): 468540076 Code(s): E78.5 - HYPERLIPIDEMIA, UNSPECIFIED Status: Acute Current Visit : Yes Onset Date: 03/14/14 Annotation/Comment:: Note known previous dyslipidemia with current therapy. Repeat lipid panel and glycosylated hemoglobin in the a.m. (6) Mixed anxiety depressive disorder SNOMED Code(s): 934716395 Code(s): F41.8 - OTHER SPECIFIED ANXIETY DISORDERS Status: Chronic Priority: Medium Current Visit: Yes Annotation/Comment:: Moderate control based on today's evaluation with strong anxiety component to patient's above symptoms. Note daily marijuana use with distant history of suicidal ideation and attempt. (7) Osteoarthritis SNOMED Code(s): 456885974 Code(s): M19.90 - UNSPECIFIED OSTEOARTHRITIS, UNSPECIFIED SITE Status: Chronic Priority: Medium Current Visit: Yes Annotation/Comment:: Otherwise stable by history with pain mostly in the left scapular region rather than in the back Qualifiers: Osteoarthritis location: multiple joints Osteoarthritis type: primary Qualified Code(s): M15.0 - Primary generalized (osteo)arthritis (8) COPD, Mild chronic obstructive pulmonary disease SNOMED Code(s): 661419280 Code(s): J44.9 - CHRONIC OBSTRUCTIVE PULMONARY DISEASE, UNSPECIFIED Status : Chronic Priority: Medium Current Visit: Yes Onset Date: 03/13/14 Annotation/Comment:: Mild COPD by chest x-ray with patient once again counseled on tobacco and marijuana cessation with information to be provided at discharge. He wants to use his own [place], in this facility. PFTs should be conducted once his cardiac status has been determined. (9) HTN, Essential hypertension SNOMED Code(s): 29609015 Code(s): I10 - ESSENTIAL (PRIMARY) HYPERTENSION Status: Chronic Current Visit: Yes Onset Date: 11/20/13 Annotation/Comment:: Continue to observe closely during this hospitalization and by his regular providers. (10) Illicit drug use, continuous SNOMED Code(s): 410390458 Code(s): F19.90 - OTHER PSYCHOACTIVE SUBSTANCE USE, UNSPECIFIED, UNCOMPLICATED Status: Chronic Priority: Medium Current Visit: Yes Annotation/Comment:: As above (11) Tobacco abuse counseling SNOMED Code(s): 614824895, 119637688, 113375651 Code(s): Z71.6 - TOBACCO ABUSE COUNSELING Status: Chronic Priority: Medium Current Visit: Yes Annotation/Comment:: As above - Problem List Review Problem List Initiated/Reviewed/Updated: Yes - My Orders Last 24 Hours: My Active Orders 08/29/18 12:26 Cardiac Monitoring [RC] . DIRECTED EKG Documentation Completion [RC] ASDIRECTED Oxygen Therapy, ED [RC] CONTINUOUS Peripheral IV Care [RC] . DIRECTED Pulse Oximetry [RC] CONTINUOUS Up With Assistance [RC] PFP Vital Signs [RC] PFP Chest 1V Frontal [CR] Stat Sodium Chloride 0.9% [Saline Flush] 10 ml FLUSH ASDIRECTED PRN Obtain Past Medical Record [OM.PC] Urgent Peripheral IV Insertion Adult [OM.PC] Stat Resuscitation Status Stat EKG 12 Lead [EK] Stat 08/29/18 13:25 HYDROmorphone [Dilaudid] 1 mg IVPUSH Q4H PRN 08/29/18 14:45 Lactated Ringers [Ringers, Lactated] 1,000 ml IV ASDIRECTED 08/29/18 Breakfast Nothing per Oral Now Diet [DIET] - Assessment/Plan Admission H&P: Please use this note as an admission H&P Last 24 Hours: My Active Orders 08/29/18 12:26 Cardiac Monitoring [RC] . DIRECTED EKG Documentation Completion [RC] ASDIRECTED Oxygen Therapy, ED [RC] CONTINUOUS Peripheral IV Care [RC] . DIRECTED Pulse Oximetry [RC] CONTINUOUS Up With Assistance [RC] PFP Vital Signs [RC] PFP Chest 1V Frontal [CR] Stat Sodium Chloride 0.9% [Saline Flush] 10 ml FLUSH ASDIRECTED PRN Obtain Past Medical Record [OM.PC] Urgent Peripheral IV Insertion Adult [OM.PC] Stat Resuscitation Status Stat EKG 12 Lead [EK] Stat 08/29/18 13:25 HYDROmorphone [Dilaudid] 1 mg IVPUSH Q4H PRN 08/29/18 14:45 Lactated Ringers [Ringers, Lactated] 1,000 ml IV ASDIRECTED 08/29/18 Breakfast Nothing per Oral Now Diet [DIET] Assessment:: As above Plan: As above. Extensive precautions were given to the patient and his , who are in agreement with the treatment plan. Matteo Ocampo M.D. at the [facility] assumes care in the a.m. The patient's condition is stable enough for observation status and general supervision.
[2018-08-29] MEDS ORDERED: LORazepam 2 MG/ML SDV IVPUSH ONE (12:30)
[2018-08-29] MEDS ORDERED: Ondansetron 4 MG/2 ML SDV IVPUSH ONE (12:41)
[2018-08-29] MEDS ORDERED: Morphine 2 MG/ML Syringe IVPUSH ONE (12:41)
[2018-08-29] MEDS: Sodium Chloride 0.9% 10 ML Syringe FLUSH PRN ×6 (12:45→14:15)
[2018-08-29 13:08] LABS: CHLORIDE,CL 104 mmol/L (98-107); SODIUM,NA 140 mmol/L (136-145)
[2018-08-29] MEDS ORDERED: Lactated Ringers 1,000 ML IV ONE (13:24)
[2018-08-29] MEDS ORDERED: HYDROmorphone 1 MG/ML Syringe IVPUSH PRN (13:25)
[2018-08-29] MEDS ORDERED: Metoclopramide 10 MG/2 ML SDV IVPUSH ONE (14:10)
[2018-08-29] MEDS: Lactated Ringers 1,000 ML IV SCH (14:39)
[2018-08-29] MEDS ORDERED: Sodium Chloride 0.9% 10 ML Syringe FLUSH PRN (15:56)
[2018-08-29] MEDS ORDERED: LORazepam 1 MG Tab PO PRN (16:00)
[2018-08-29] MEDS: traMADol 50 MG Tab PO PRN ×2 (17:05→23:18)
[2018-08-29] MEDS: Acetaminophen 325 MG Tab PO PRN ×2 (17:05→23:19)
[2018-08-29] MEDS ORDERED: Lisinopril 10 MG Tab PO SCH (20:00)
[2018-08-29] MEDS ORDERED: Metoclopramide 10 MG/2 ML SDV IVPUSH PRN (20:00)
[2018-08-30] MEDS: Lactated Ringers 1,000 ML IV SCH (07:03)
[2018-08-30 07:19] LABS: HEMOGLOBIN A1C 5.7 % (4.3-5.7)
[2018-08-30] MEDS ORDERED: Loratadine 10 MG Tab PO SCH (08:00)
[2018-08-30] MEDS ORDERED: Aspirin 81 MG Tab.Chew PO SCH (08:00)
[2018-08-30] MEDS ORDERED: Escitalopram 20 MG Tab PO SCH (08:00)
[2018-08-30 08:07] LABS: CHLORIDE,CL 108 mmol/L (98-107); SODIUM,NA 142 mmol/L (136-145)
--- NOTE | 2018-08-30 11:06 | PCM.DCSUM1 ---
Discharge Summary - Hospital Course Free Text/Narrative:: Patient admitted yesterday with back pain chest pain radiating into the neck troponins 3 were done which are negative at this time chest pain has resulted patient doing better would like to go home I will go ahead and send him home will order outpatient cardiac stress test which she would like to have it done at the corner and will start him on meloxicam 15 mg daily for back pain Diagnosis: Stroke: No - Discharge Data Discharge Date: 08/30/18 Discharge Disposition: Home, Self-Care 01 Condition: Good - Discharge Diagnosis/Problem(s) (1) Chest pain SNOMED Code(s): 92645648 ICD Code: R07.9 - CHEST PAIN, UNSPECIFIED Status: Acute Priority: High Current Visit: Yes Onset Date: 08/29/18 Problem Details: Chest pain protocol started on arrival troponins were negative chest pain improve patient had a borderline stress test on April 01, 2014 please see [facility] note At this time. At this time patient will be [facility] for repeat stress test Qualifiers: Chest pain type: unspecified Qualified Code(s): R07.9 - Chest pain, unspecified - Patient Instructions Diet: Heart Healthy Diet Driving: Do Not Drive Showering/Bathing: May Shower - Discharge Plan *PRESCRIPTION DRUG MONITORING PROGRAM REVIEWED*: Not Applicable *COPY OF PRESCRIPTION DRUG MONITORING REPORT IN PATIENT LARRY: Not Applicable Home Medications: Home Meds ALPRAZolam [Xanax] 0.5 mg PO BEDTIME PRN 10/12/16 [History] Lisinopril 5 mg PO BEDTIME 10/12/16 [History] Ibuprofen [Advil] 200 mg PO ASDIRECTED 02/13/18 [History] SUMAtriptan [Imitrex] 1 tab PO ASDIRECTED PRN 02/13/18 [History] Aspirin 81 mg PO QAM 08/29/18 [History] Cholecalciferol (Vitamin D3) [Vitamin D3] 1,000 units PO QAM 08/29/18 [History] Escitalopram [Lexapro] 10 mg PO QAM 08/29/18 [History] Loratadine [Claritin] 10 mg PO QAM 08/29/18 [History] Forms: ED Department Discharge Referrals: Sarika Balderrama PA-C [Primary Care Provider] - - Discharge Summary/Plan Comment DC Time >30 min.: No - General Info Functional Status: Reports: Pain Controlled, Tolerating Diet - Review of Systems General: Reports: No Symptoms HEENT: Reports: No Symptoms Pulmonary: Reports: No Symptoms Cardiovascular: Reports: No Symptoms Gastrointestinal: Reports: No Symptoms Genitourinary: Reports: No Symptoms Musculoskeletal: Reports: Shoulder Pain, Back Pain (Improving) Skin: Reports: No Symptoms Neurological: Reports: No Symptoms Psychiatric: Reports: No Symptoms - Patient Data Vitals - Most Recent: Last Vital Signs Temp 97.6 F 08/30/18 08:00 Pulse 73 08/30/18 08:00 Resp 17 08/30/18 08:00 BP 152/98 H 08/30/18 08:00 Pulse Ox 100 08/30/18 08:00 Weight - Most Recent: 196 lb 8 oz I&O - Last 24 hours: Intake & Output 08/29/18 08/30/18 08/30/18 22:59 06:59 14:59 Intake Total 228 500 120 Output Total 900 1250 Balance 228 -400 -1130 Lab Results - Last 24 hrs: Laboratory Results - last 24 hr 08/29/18 08/29/18 08/29/18 Range/Units 12:26 12:26 12:26 WBC 7.0 (4.0-10.2) K/uL RBC 5.67 H (4.33-5.41) M/uL Hgb 16.3 (13.1-16.8) g/dL Hct 47.4 (39.0-49.0) % MCV 83.6 L (84.0-98.0) fL MCH 28.7 (28.2-33.3) pg MCHC 34.4 (31.7-36.0) g/dL RDW 14.7 H (11.2-14.1) % Plt Count 178 (150-350) K/uL Neut % (Auto) 43.8 L (45.0-80.0) % Lymph % (Auto) 43.9 (10.0-50.0) % [place] % (Auto) 9.3 (2.0-14.0) % Eos % (Auto) 2.6 (0.0-5.0) % Baso % (Auto) 0.4 (0.0-2.0) % Neut # (Auto) 3.07 (1.40-7.00) K/uL Lymph # (Auto) 3.07 (0.50-3.50) K/uL [place] # (Auto) 0.65 (0.00-1.00) K/uL Eos # (Auto) 0.18 (0.00-0.50) K/uL Baso # (Auto) 0.03 (0.00-0.20) K/uL PT 10.7 (9.5-12.0) SEC INR 1.0 APTT 27.8 (21.0-31.3) SEC D-Dimer, Quantitative < 100 (0-400) ng/mL Sodium (136-145) mmol/L Potassium (3.5-5.1) mmol/L Chloride (98-107) mmol/L Carbon Dioxide (21.0-32.0) mmol/L BUN (7-18) mg/dL Creatinine (0.51-1.17) mg/dL Est Cr Clr Drug Dosing mL/min Estimated GFR (MDRD) mL/min Glucose (74-106) mg/dL Hemoglobin A1c (4.3-5.7) % Lactic Acid (0.4-2.0) mmol/L Uric Acid (2.6-7.2) mg/dL Calcium (8.5-10.1) mg/dL Magnesium (1.8-2.4) mg/dL Total Bilirubin (0.2-1.0) mg/dL AST (15-37) U/L ALT (12-78) U/L Alkaline Phosphatase (46-116) IU/L Creatine Kinase (26-308) U/L Creatine Kinase Index (0.0-2.5) % CK-MB (CK-2) (0.00-3.60) ng/mL Troponin I (0.000-0.056) ng/mL NT-Pro-B Natriuret Pep (0-125) pg/mL Total Protein (6.4-8.2) g/dL Albumin (3.4-5.0) g/dL Triglycerides (30-150) mg/dL Cholesterol (100-200) mg/dL LDL Cholesterol, Calc (0-100) mg/dL HDL Cholesterol (40-60) mg/dL TSH, Ultra Sensitive (0.358-3.740) mIU/mL Specimen Type Urine Color Urine Appearance Urine pH (5.0-9.0) Ur Specific [place] (1.005-1.030) Urine Protein (NEGATIVE) mg/dL Urine Glucose (UA) (NEGATIVE) mg/dL Urine Ketones (NEGATIVE) mg/dL Urine Occult Blood (NEGATIVE) Urine Nitrite (NEGATIVE) Urine Bilirubin (NEGATIVE) Urine Urobilinogen (0.2-1.0) E.U./dL Ur Leukocyte Esterase (NEGATIVE) Urine RBC /HPF Urine WBC /HPF Ur Epithelial Cells /LPF Urine Bacteria (NONE TO FEW) /HPF 08/29/18 08/29/18 08/29/18 Range/Units 12:26 12:26 13:19 WBC (4.0-10.2) K/uL RBC (4.33-5.41) M/uL Hgb (13.1-16.8) g/dL Hct (39.0-49.0) % MCV (84.0-98.0) fL MCH (28.2-33.3) pg MCHC (31.7-36.0) g/dL RDW (11.2-14.1) % Plt Count (150-350) K/uL Neut % (Auto) (45.0-80.0) % Lymph % (Auto) (10.0-50.0) % [place] % (Auto) (2.0-14.0) % Eos % (Auto) (0.0-5.0) % Baso % (Auto) (0.0-2.0) % Neut # (Auto) (1.40-7.00) K/uL Lymph # (Auto) (0.50-3.50) K/uL [place] # (Auto) (0.00-1.00) K/uL Eos # (Auto) (0.00-0.50) K/uL Baso # (Auto) (0.00-0.20) K/uL PT (9.5-12.0) SEC INR APTT (21.0-31.3) SEC D-Dimer, Quantitative (0-400) ng/mL Sodium 140 (136-145) mmol/L Potassium 3.5 (3.5-5.1) mmol/L Chloride 104 (98-107) mmol/L Carbon Dioxide 19.6 L (21.0-32.0) mmol/L BUN 8 (7-18) mg/dL Creatinine 0.87 (0.51-1.17) mg/dL Est Cr Clr Drug Dosing 100.22 mL/min Estimated GFR (MDRD) > 60 mL/min Glucose 105 (74-106) mg/dL Hemoglobin A1c (4.3-5.7) % Lactic Acid 3.8 H (0.4-2.0) mmol/L Uric Acid 4.8 (2.6-7.2) mg/dL Calcium 9.3 (8.5-10.1) mg/dL Magnesium 2.2 (1.8-2.4) mg/dL Total Bilirubin 0.6 (0.2-1.0) mg/dL AST 29 (15-37) U/L ALT 41 (12-78) U/L Alkaline Phosphatase 92 (46-116) IU/L Creatine Kinase 573 H (26-308) U/L Creatine Kinase Index 0.1 (0.0-2.5) % CK-MB (CK-2) 0.70 (0.00-3.60) ng/mL Troponin I 0.000 (0.000-0.056) ng/mL NT-Pro-B Natriuret Pep 27 (0-125) pg/mL Total Protein 8.2 (6.4-8.2) g/dL Albumin 4.2 (3.4-5.0) g/dL Triglycerides (30-150) mg/dL Cholesterol (100-200) mg/dL LDL Cholesterol, Calc (0-100) mg/dL HDL Cholesterol (40-60) mg/dL TSH, Ultra Sensitive 1.340 (0.358-3.740) mIU/mL Specimen Type Urincc Urine Color Yellow Urine Appearance Clear Urine pH 7.5 (5.0-9.0) Ur Specific [place] 1.010 (1.005-1.030) Urine Protein Negative (NEGATIVE) mg/dL Urine Glucose (UA) Negative (NEGATIVE) mg/dL Urine Ketones Negative (NEGATIVE) mg/dL Urine Occult Blood Negative (NEGATIVE) Urine Nitrite Negative (NEGATIVE) Urine Bilirubin Negative (NEGATIVE) Urine Urobilinogen 0.2 (0.2-1.0) E.U./dL Ur Leukocyte Esterase Negative (NEGATIVE) Urine RBC Not seen /HPF Urine WBC Not seen /HPF Ur Epithelial Cells Occasional /LPF Urine Bacteria Occasional (NONE TO FEW) /HPF 08/29/18 08/29/18 08/29/18 Range/Units 16:08 16:08 21:22 WBC (4.0-10.2) K/uL RBC (4.33-5.41) M/uL Hgb (13.1-16.8) g/dL Hct (39.0-49.0) % MCV (84.0-98.0) fL MCH (28.2-33.3) pg MCHC (31.7-36.0) g/dL RDW (11.2-14.1) % Plt Count (150-350) K/uL Neut % (Auto) (45.0-80.0) % Lymph % (Auto) (10.0-50.0) % [place] % (Auto) (2.0-14.0) % Eos % (Auto) (0.0-5.0) % Baso % (Auto) (0.0-2.0) % Neut # (Auto) (1.40-7.00) K/uL Lymph # (Auto) (0.50-3.50) K/uL [place] # (Auto) (0.00-1.00) K/uL Eos # (Auto) (0.00-0.50) K/uL Baso # (Auto) (0.00-0.20) K/uL PT (9.5-12.0) SEC INR APTT (21.0-31.3) SEC D-Dimer, Quantitative (0-400) ng/mL Sodium (136-145) mmol/L Potassium (3.5-5.1) mmol/L Chloride (98-107) mmol/L Carbon Dioxide (21.0-32.0) mmol/L BUN (7-18) mg/dL Creatinine (0.51-1.17) mg/dL Est Cr Clr Drug Dosing mL/min Estimated GFR (MDRD) mL/min Glucose (74-106) mg/dL Hemoglobin A1c (4.3-5.7) % Lactic Acid 0.8 (0.4-2.0) mmol/L Uric Acid (2.6-7.2) mg/dL Calcium (8.5-10.1) mg/dL Magnesium (1.8-2.4) mg/dL Total Bilirubin (0.2-1.0) mg/dL AST (15-37) U/L ALT (12-78) U/L Alkaline Phosphatase (46-116) IU/L Creatine Kinase 431 H 374 H (26-308) U/L Creatine Kinase Index 0.1 0.2 (0.0-2.5) % CK-MB (CK-2) 0.50 0.70 (0.00-3.60) ng/mL Troponin I 0.000 0.000 (0.000-0.056) ng/mL NT-Pro-B Natriuret Pep (0-125) pg/mL Total Protein (6.4-8.2) g/dL Albumin (3.4-5.0) g/dL Triglycerides (30-150) mg/dL Cholesterol (100-200) mg/dL LDL Cholesterol, Calc (0-100) mg/dL HDL Cholesterol (40-60) mg/dL TSH, Ultra Sensitive (0.358-3.740) mIU/mL Specimen Type Urine Color Urine Appearance Urine pH (5.0-9.0) Ur Specific [place] (1.005-1.030) Urine Protein (NEGATIVE) mg/dL Urine Glucose (UA) (NEGATIVE) mg/dL Urine Ketones (NEGATIVE) mg/dL Urine Occult Blood (NEGATIVE) Urine Nitrite (NEGATIVE) Urine Bilirubin (NEGATIVE) Urine Urobilinogen (0.2-1.0) E.U./dL Ur Leukocyte Esterase (NEGATIVE) Urine RBC /HPF Urine WBC /HPF Ur Epithelial Cells /LPF Urine Bacteria (NONE TO FEW) /HPF 08/30/18 08/30/18 08/30/18 Range/Units 07:06 07:06 07:06 WBC 4.5 (4.0-10.2) K/uL RBC 4.95 (4.33-5.41) M/uL Hgb 14.2 D (13.1-16.8) g/dL Hct 42.8 (39.0-49.0) % MCV 86.5 (84.0-98.0) fL MCH 28.7 (28.2-33.3) pg MCHC 33.2 (31.7-36.0) g/dL RDW 14.4 H (11.2-14.1) % Plt Count 148 L (150-350) K/uL Neut % (Auto) 43.0 L (45.0-80.0) % Lymph % (Auto) 40.8 (10.0-50.0) % [place] % (Auto) 9.2 (2.0-14.0) % Eos % (Auto) 6.3 H (0.0-5.0) % Baso % (Auto) 0.7 (0.0-2.0) % Neut # (Auto) 1.93 (1.40-7.00) K/uL Lymph # (Auto) 1.83 (0.50-3.50) K/uL [place] # (Auto) 0.41 (0.00-1.00) K/uL Eos # (Auto) 0.28 (0.00-0.50) K/uL Baso # (Auto) 0.03 (0.00-0.20) K/uL PT (9.5-12.0) SEC INR APTT (21.0-31.3) SEC D-Dimer, Quantitative (0-400) ng/mL Sodium 142 (136-145) mmol/L Potassium 4.3 (3.5-5.1) mmol/L Chloride 108 H (98-107) mmol/L Carbon Dioxide 28.1 (21.0-32.0) mmol/L BUN 8 (7-18) mg/dL Creatinine 0.91 (0.51-1.17) mg/dL Est Cr Clr Drug Dosing 95.82 mL/min Estimated GFR (MDRD) > 60 mL/min Glucose 96 (74-106) mg/dL Hemoglobin A1c 5.7 (4.3-5.7) % Lactic Acid (0.4-2.0) mmol/L Uric Acid (2.6-7.2) mg/dL Calcium 8.0 L (8.5-10.1) mg/dL Magnesium (1.8-2.4) mg/dL Total Bilirubin 0.6 (0.2-1.0) mg/dL AST 18 (15-37) U/L ALT 32 (12-78) U/L Alkaline Phosphatase 73 (46-116) IU/L Creatine Kinase 275 (26-308) U/L Creatine Kinase Index 0.2 (0.0-2.5) % CK-MB (CK-2) 0.60 (0.00-3.60) ng/mL Troponin I 0.009 (0.000-0.056) ng/mL NT-Pro-B Natriuret Pep (0-125) pg/mL Total Protein 6.3 L (6.4-8.2) g/dL Albumin 3.1 L (3.4-5.0) g/dL Triglycerides 128 (30-150) mg/dL Cholesterol 142 (100-200) mg/dL LDL Cholesterol, Calc 93 (0-100) mg/dL HDL Cholesterol 23 L (40-60) mg/dL TSH, Ultra Sensitive (0.358-3.740) mIU/mL Specimen Type Urine Color Urine Appearance Urine pH (5.0-9.0) Ur Specific [place] (1.005-1.030) Urine Protein (NEGATIVE) mg/dL Urine Glucose (UA) (NEGATIVE) mg/dL Urine Ketones (NEGATIVE) mg/dL Urine Occult Blood (NEGATIVE) Urine Nitrite (NEGATIVE) Urine Bilirubin (NEGATIVE) Urine Urobilinogen (0.2-1.0) E.U./dL Ur Leukocyte Esterase (NEGATIVE) Urine RBC /HPF Urine WBC /HPF Ur Epithelial Cells /LPF Urine Bacteria (NONE TO FEW) /HPF 08/30/18 Range/Units 07:06 WBC (4.0-10.2) K/uL RBC (4.33-5.41) M/uL Hgb (13.1-16.8) g/dL Hct (39.0-49.0) % MCV (84.0-98.0) fL MCH (28.2-33.3) pg MCHC (31.7-36.0) g/dL RDW (11.2-14.1) % Plt Count (150-350) K/uL Neut % (Auto) (45.0-80.0) % Lymph % (Auto) (10.0-50.0) % [place] % (Auto) (2.0-14.0) % Eos % (Auto) (0.0-5.0) % Baso % (Auto) (0.0-2.0) % Neut # (Auto) (1.40-7.00) K/uL Lymph # (Auto) (0.50-3.50) K/uL [place] # (Auto) (0.00-1.00) K/uL Eos # (Auto) (0.00-0.50) K/uL Baso # (Auto) (0.00-0.20) K/uL PT (9.5-12.0) SEC INR APTT (21.0-31.3) SEC D-Dimer, Quantitative (0-400) ng/mL Sodium (136-145) mmol/L Potassium (3.5-5.1) mmol/L Chloride (98-107) mmol/L Carbon Dioxide (21.0-32.0) mmol/L BUN (7-18) mg/dL Creatinine (0.51-1.17) mg/dL Est Cr Clr Drug Dosing mL/min Estimated GFR (MDRD) mL/min Glucose (74-106) mg/dL Hemoglobin A1c (4.3-5.7) % Lactic Acid 0.8 (0.4-2.0) mmol/L Uric Acid (2.6-7.2) mg/dL Calcium (8.5-10.1) mg/dL Magnesium (1.8-2.4) mg/dL Total Bilirubin (0.2-1.0) mg/dL AST (15-37) U/L ALT (12-78) U/L Alkaline Phosphatase (46-116) IU/L Creatine Kinase (26-308) U/L Creatine Kinase Index (0.0-2.5) % CK-MB (CK-2) (0.00-3.60) ng/mL Troponin I (0.000-0.056) ng/mL NT-Pro-B Natriuret Pep (0-125) pg/mL Total Protein (6.4-8.2) g/dL Albumin (3.4-5.0) g/dL Triglycerides (30-150) mg/dL Cholesterol (100-200) mg/dL LDL Cholesterol, Calc (0-100) mg/dL HDL Cholesterol (40-60) mg/dL TSH, Ultra Sensitive (0.358-3.740) mIU/mL Specimen Type Urine Color Urine Appearance Urine pH (5.0-9.0) Ur Specific [place] (1.005-1.030) Urine Protein (NEGATIVE) mg/dL Urine Glucose (UA) (NEGATIVE) mg/dL Urine Ketones (NEGATIVE) mg/dL Urine Occult Blood (NEGATIVE) Urine Nitrite (NEGATIVE) Urine Bilirubin (NEGATIVE) Urine Urobilinogen (0.2-1.0) E.U./dL Ur Leukocyte Esterase (NEGATIVE) Urine RBC /HPF Urine WBC /HPF Ur Epithelial Cells /LPF Urine Bacteria (NONE TO FEW) /HPF EREN Results - Last 24 hrs: Microbiology 08/29/18 13:19 Urine Culture - Preliminary Urine, Clean Catch NO GROWTH AFTER 1 DAY Med Orders - Current: Current Medications Acetaminophen (Tylenol) 650 mg PO Q4H PRN PRN Reason: Pain Last Admin: 08/29/18 23:19 Dose: 650 mg Aspirin (Aspirin) 81 mg PO [facility] Last Admin: 08/30/18 07:03 Dose: 81 mg Escitalopram Oxalate (Lexapro) 10 mg PO [facility] Last Admin: 08/30/18 07:02 Dose: 10 mg Hydromorphone HCl (Dilaudid) 1 mg IVPUSH Q4H PRN PRN Reason: Pain (severe 7-10) Last Admin: 08/29/18 13:35 Dose: 1 mg Lactated Ringer's (Ringers, Lactated) 1,000 mls @ 125 mls/hr IV ASDIRECTED [facility] Last Admin: 08/30/18 07:03 Dose: 125 mls/hr Lisinopril (Prinivil) 5 mg PO BEDTIME [facility] Last Admin: 08/29/18 19:57 Dose: 5 mg Loratadine (Claritin) 10 mg PO [facility] Last Admin: 08/30/18 07:02 Dose: 10 mg Lorazepam (Ativan) 1 mg PO Q6H PRN PRN Reason: Muscle Spasm Metoclopramide HCl (Reglan) 10 mg IVPUSH Q6H PRN PRN Reason: Nausea/Vomiting Sodium Chloride (Saline Flush) 10 ml FLUSH ASDIRECTED PRN PRN Reason: Keep Vein Open Last Admin: 08/29/18 14:15 Dose: 10 ml Sodium Chloride (Saline Flush) 10 ml FLUSH Q12HR PRN PRN Reason: Keep Vein Open Tramadol HCl (Ultram) 50 mg PO Q6H PRN PRN Reason: Pain (moderate 4-6) Last Admin: 08/29/18 23:18 Dose: 50 mg Discontinued Medications Aspirin (Aspirin) 324 mg CHEW ONETIME ONE Stop: 08/29/18 12:27 Last Admin: 08/29/18 12:35 Dose: 324 mg Famotidine (Pepcid) 40 mg IVPUSH ONETIME ONE Stop: 08/29/18 12:27 Last Admin: 08/29/18 12:39 Dose: 40 mg Lactated Ringer's (Ringers, Lactated) 1,000 mls @ 999 mls/hr IV .BOLUS ONE Stop: 08/29/18 14:24 Last Admin: 08/29/18 13:34 Dose: 999 mls/hr Lorazepam (Ativan) 1 mg IVPUSH ONETIME ONE Stop: 08/29/18 12:31 Last Admin: 08/29/18 12:40 Dose: 1 mg Metoclopramide HCl (Reglan) 10 mg IVPUSH ONETIME ONE Stop: 08/29/18 14:11 Last Admin: 08/29/18 14:15 Dose: 10 mg Morphine Sulfate (Morphine) 2 mg IVPUSH ONETIME ONE Stop: 08/29/18 12:42 Last Admin: 08/29/18 12:53 Dose: 2 mg Ondansetron HCl (Zofran) 4 mg IVPUSH ONETIME ONE Stop: 08/29/18 12:42 Last Admin: 08/29/18 12:45 Dose: 4 mg Ticagrelor (Brilinta) 180 mg PO ONETIME ONE Stop: 08/29/18 12:27 Last Admin: 08/29/18 12:36 Dose: 180 mg - Exam General: Reports: Alert, Oriented HEENT: Reports: Pupils Equal, Pupils Reactive, EOMI, Mucous Membr. Moist/[place] Neck: Reports: Supple Lungs: Reports: Clear to Auscultation, Normal Respiratory Effort Cardiovascular: Reports: Regular Rate, Regular Rhythm GI/Abdominal Exam: Normal Bowel Sounds, Soft, Non-Tender, No Organomegaly, No Distention, No Abnormal Bruit, No Mass, Pelvis Stable (Male) Exam: No Hernia, Normal Inspection, Normal Prostate, Circumcised Rectal (Males) Exam: Normal Exam, Normal Rectal Tone, Prostate Normal Back Exam: Reports: Normal Inspection, Full Range of Motion Extremities: Normal Inspection, Normal Range of Motion, Non-Tender, No Pedal Edema, Normal Capillary Refill Skin: Reports: Warm, Dry, Intact Wound/Incisions: Reports: Healing Well Neurological: Reports: No New Focal Deficit Psy/Mental Status: Reports: Alert Physical Findings Comments:: Patient will be sent home on the current meloxicam and he should return to all his previous medication may take meloxicam for pain 15 mg daily follow-up with primary
[2018-08-30 12:53] VITALS: BP 142/91
== END 2018-08-30 11:45 | disposition home or self-care (01) ==
LOC: LL.ED 12:20 → LL.MS 15:10
PROVIDERS: ADMIT Family Medicine; ATTEND Family Medicine
DX: R07.2 Precordial pain (principal); M54.9 Dorsalgia, unspecified; S46.812A Strain of other muscles, fascia and tendons at shoulder and upper arm level, left arm, initial encounter; I10 Essential (primary) hypertension; J44.9 Chronic obstructive pulmonary disease, unspecified; E78.00 Pure hypercholesterolemia, unspecified; E87.2 Acidosis; F17.210 Nicotine dependence, cigarettes, uncomplicated; F41.8 Other specified anxiety disorders; G44.209 Tension-type headache, unspecified, not intractable; M15.0 Primary generalized (osteo)arthritis; X50.0XXA Overexertion from strenuous movement or load, initial encounter; Y93.64 Activity, baseball; Z91.018 Allergy to other foods; Z91.09 Other allergy status, other than to drugs and biological substances; Z82.49 Family history of ischemic heart disease and other diseases of the circulatory system; Z79.82 Long term (current) use of aspirin; Z79.899 Other long term (current) drug therapy
CPT/HCPCS: 36415; 71045; 80053; 80061; 81001; 82550; 82553; 83036; 83605; 83735; 83880; 84443; 84484; 84550; 85025; 85379; 85610; 85730; 87086; 93005; 96360; 96361; 96374; 96375; 99285-25; A9270-GY; G0378; J1170; J2060; J2270; J2405; J2765; J3490; J7120

== ENCOUNTER 2019-03-20 17:20 | Observation (INO) | payer BC ==
[2019-03-20] MEDS ORDERED: Sodium Chloride 0.9% 10 ML Syringe FLUSH PRN (17:31)
[2019-03-20] MEDS ORDERED: diphenhydrAMINE 50 MG/ML SDV IVPUSH ONE ×2 (17:48→18:17)
[2019-03-20] MEDS ORDERED: diphenhydrAMINE 50 MG/ML SDV ONE (17:48)
[2019-03-20] MEDS ORDERED: methylPREDNISolone Sodium Succinate 125 MG/2 ML SDV ONE (18:05)
[2019-03-20] MEDS ORDERED: methylPREDNISolone Sodium Succinate 125 MG/2 ML SDV IVPUSH ONE (18:05)
[2019-03-20] MEDS ORDERED: Ondansetron 4 MG/2 ML SDV ONE (18:05)
[2019-03-20] MEDS ORDERED: Ondansetron 4 MG/2 ML SDV IVPUSH ONE (18:05)
[2019-03-20 18:12] LABS: CHLORIDE,CL 104 mmol/L (98-107); SODIUM,NA 141 mmol/L (136-145)
[2019-03-20] MEDS ORDERED: Sodium Chloride 0.9% 1,000 ML IV ONE ×2 (18:41→19:31)
[2019-03-20] MEDS ORDERED: LORazepam 2 MG/ML SDV IVPUSH ONE (19:08)
[2019-03-20] MEDS ORDERED: LORazepam 2 MG/ML SDV ONE (19:08)
--- NOTE | 2019-03-20 20:01 | EDM.PDOC ---
ED HPI GENERAL MEDICAL PROBLEM - General Chief Complaint: Gastrointestinal Problem Stated Complaint: abdominal cramping Time Seen by Provider: 03/20/19 17:30 Source of Information: Reports: Patient History Limitations: Reports: No Limitations - History of Present Illness INITIAL COMMENTS - FREE TEXT/NARRATIVE: Patient comes to ER reporting illness for previous 6 days. Had significant diarrhea and vomiting and Wednesday. Improved Wednesday. Decreased PO over the weekend due to this. Was out all day clearing snow yesterday. Today had eggs /toast and went to [employer] to work his shift. Had been drinking pedialyte over weekend/during illness. Developed abdominal pain while at work. Came to ER for evaluation. Reports no emesis or bowel movements for 3 days. Prior to coming to ER drank fruit flavored Naked Juice that was red in color. Started to complain of allergic reaction during intake interview. Developed hives in addition to presenting complaint. He did verify that the abdominal pain was present prior to drinking the juice. 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: Reports: Acetaminophen Abdomin Pain Score (Numeric/FACES): 6 - Related Data Allergies Allergy/AdvReac Type Severity Reaction Status Date / Time apricot Allergy Airway Verified 03/20/19 17:23 Tightness cat dander Allergy Sneezing Verified 03/20/19 17:23 dog dander Allergy Sneezing Verified 03/20/19 17:23 ibuprofen Allergy unknown Verified 03/20/19 19:33 nectarine Allergy Airway Uncoded 03/20/19 17:23 Tightness tangerine Allergy Airway Uncoded 03/20/19 17:23 Tightness Home Meds: Home Meds ALPRAZolam [Xanax] 0.5 mg PO BEDTIME PRN 10/12/16 [History] Lisinopril 5 mg PO BEDTIME 10/12/16 [History] SUMAtriptan [Imitrex] 1 tab PO ASDIRECTED PRN 02/13/18 [History] Loratadine [Claritin] 10 mg PO QAM 08/29/18 [History] Acetaminophen [Tylenol] 650 mg PO Q4H PRN tablet 08/30/18 [Rx] traMADol [Ultram] 50 mg PO Q6H PRN tablet 08/30/18 [Rx] EPINEPHrine [Epipen] 0.3 mg IM ASDIRECTED PRN 03/20/19 [History] Past Medical History HEENT History: Reports: Allergic Rhinitis, Impaired Vision, Other (See Below). Denies: Hard of Hearing Other HEENT History: Patient does wear reading glasses. No current treatment for his borderline bilateral hearing loss. Cardiovascular History: Reports: High Cholesterol, Hypertension, Other (See Below). Denies: Afib, Arrhythmia, Blood Clots/VTE/DVT, CAD, Heart Failure, Heart Murmur, HI, Pacemaker, PTCA, Syncope Other Cardiovascular History: Grade 1 diastolic dysfunction. Dyslipidemia with no current medical therapy. Respiratory History: Reports: COPD, Intubation, Previous. Denies: Asthma, Bronchitis, Recurrent, Intubation, Difficult, PE, Pneumonia, Recurrent, Pneumothorax, Sleep Apnea, TB Gastrointestinal History: Reports: Cholelithiasis. Denies: Bowel Obstruction, Celiac Disease, Chronic Constipation, Chronic Diarrhea, Fecal Incontinence, GERD , GI Bleed, Hepatitis, Hiatal Hernia, Inflammatory Bowel Disease, Irritable Bowel Syndrome, Jaundice, Pancreatitis, PUD Genitourinary History: Reports: None. Denies: Acute Renal Failure, BPH, Chronic Renal Insuffiency, Renal Calculus, STD, Urinary Incontinence, UTI, Recurrent Musculoskeletal History: Reports: Amputation, Arthritis, Fracture, Osteoporosis , Other (See Below). Denies: Back Pain, Chronic, Fibromyalgia, Gout, Neck Pain , Chronic, RA, SLE Other Musculoskeletal History: Left fourth metacarpal fracture at age 17 with pin placement. Bilateral knuckle fractures in his teenage years with no surgeries. Neurological History: Reports: Concussion, Headaches, Chronic, Head Trauma, Migraines, Other (See Below). 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 Possible head concussion while playing football as a teenager. Psychiatric History: Reports: Addiction, Anxiety, Depression, Panic Attack, Psych Hospitalization(s), Suicide Attempt, Suicidal Ideation. Denies: Abuse, Victim of, ADD, ADHD, Hallucinations, Psychosis, PTSD Other Psychiatric History: Attempted medication overdose about age 16 and 17 and in his early 20s with psychiatric hospitalizations on both of these occasions. Daily marijuana use as below. Endocrine/Metabolic History: Reports: None. Denies: Diabetes, Type I, Diabetes , Type II, Diabetes Mellitus, Type 3c, Hypothyroidism, IDDM Hematologic History: Reports: None. Denies: Anemia, Blood Transfusion(s), Iron Deficiency Immunologic History: Reports: None. Denies: AIDS, HIV, SLE Oncologic (Cancer) History: Reports: None. Denies: Basal Cell Carcinoma, Hodgkin's Lymphoma, Leukemia, Lymphoma, Malignant Melanoma, Non-Hodgkin's Lymphoma, Squamous Cell Carcinoma Dermatologic History: Reports: None. Denies: Eczema, Psoriasis - Infectious Disease History Infectious Disease History: Reports: Chicken Pox. Denies: C-Difficile, Measles , Meningitis, Mononucleosis, MRSA, Mumps, Pertussis (Whooping Cough), Rheumatic Fever, Rubella, Scarlet Fever, Shingles, TB, VRE - Past Surgical History Head Surgeries/Procedures: Reports: None HEENT Surgical History: Reports: Oral Surgery, Other (See Below). Denies: Adenoidectomy, Cataract Surgery, Eye Surgery, Laser Surgery, Myringotomy w Tube( s), Naso-Sinus Surgery, Tonsillectomy Other HEENT Surgeries/Procedures: [place] teeth extraction 4 with additional multiple teeth extractions. Cardiovascular Surgical History: Reports: None. Denies: Varicose Respiratory Surgical History: Reports: None. Denies: Thoracentesis GI Surgical History: Reports: Appendectomy, Cholecystectomy, Other (See Below) Other GI Surgeries/Procedures: Appendectomy in 2000. Laparoscopic cholecystectomy on 08/07/02 colonoscopy in about 1994. EGD on 06/12/02. Male Surgical History: Reports: Circumcision, Other (See Below). Denies: Vasectomy Other Male Surgeries/Procedures: Circumcision as an infant. Endocrine Surgical History: Reports: None. Denies: Thyroid Biopsy Musculoskeletal Surgical History: Reports: Arthroscopic Knee, Arthroscopic Procedure, Carpal Tunnel, ORIF, Shoulder Surgery, Other (See Below). Denies: Ganglion Cyst, Joint Replacement Other Musculoskeletal Surgeries/Procedures:: Multiple orthopedic surgeries as above, including left knee arthroscopic surgery in about 2010, right-sided shoulder surgery in 2001, left-sided shoulder surgery in 2005. ORIF pin placement of left fourth metacarpal fracture at age 17. Right ulnar bone graft and shortening in his early 30s initially in 1997 and then repeated in 1968. 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 Oncologic Surgical History: Reports: None Dermatological Surgical History: Reports: None. Denies: Skin Biopsy - Past Imaging History Past Imaging History: Reports: Bone Scan (Limited bone scan of the thoracic and lumbar spines on 02/24/07.), Cardiac Echo (Echocardiogram on 03/26/14 with ejection fraction of 5560 percent and otherwise results as above.), CAT Scan ( CT of the head on 11/20/13. CT of the lumbar spine on 02/04/07.), MRI (MRI of the Right knee on 06/28/17 indicating a medial meniscal tear. MRI of the left elbow on 03/11/16 and 02/22/15. MRI of the brain on 11/21/13.), Stress Testing (Mildly Positive Cardiolite stress test on 03/22/14 with no further heart catheterization.). Denies: Angiography Social & Family History - Family History HEENT: Reports: None. Denies: Glaucoma, Macular Degeneration, Retinal Detachment Cardiac: Reports: Bypass, CAD, High Cholesterol, Hypertension, HI, Stent, Other (See Below). Denies: AICD, Aneurysm, Arrhythmia, Blood Clots/VTE/DVT, Heart Failure, Heart Murmur, Pacemaker, PVD/COD, Syncope Other Cardiac Family History: Maternal aunt with CABG in her 70s with history of multiple MIs fatal in her 90s. Maternal uncle with PTCA/stent in his 60s. Maternal grandfather with fatal unknown type of heart disease in his 70s. Brother with PTCA/stent at age 60. Hypertension in mother, maternal aunts 4, sisters 2, brothers 2, and father. Hyperlipidemia in mother and sister. Father with multiple MIs initially in his 70s and previous multiple PTCA/stents and CABG with CVAs as below. Respiratory: Reports: COPD, Other (See Below). Denies: Asthma, PE, Pneumothorax , Sleep Apnea, TB Other Respiratory Family Hisory: Paternal uncle with COPD and history of tobacco use. Maternal uncle with COPD and asbestos exposure. GI: Reports: None. Denies: Celiac Disease, Cholelithiasis, Colon Polyps, GERD, GI bleed, Inflammatory Bowel Disease, Irritable Bowel Syndrome, Jaundice, PUD : Reports: None. Denies: Renal Calculus, Renal Disease/Insufficiency OBGYN: Reports: None. Denies: Endometriosis, Recurrent Spontaneous Musculoskeletal: Reports: None. Denies: Arthritis, Gout, Osteoarthritis, RA, SLE Neurological: Reports: CVA, Dementia, Other (See Below). Denies: Alzheimers Disease, Migraines, Parkinson's, Seizure, TIA, Vertigo Other Neurological Family History: Maternal uncles 2 with dementia in their early 70s. Father with recurrent CVAs and secondary dementia with fatal CVA at age 84. Maternal uncle with fatal CVA in his late 60s. Psychiatric: Reports: None, Anxiety, Depression, Other (See Below). Denies: Psych Hospitalization(s), PTSD, Suicide Attempt Other Psychiatric Family History: Sisters 2 with anxiety depression disorder. Endocrine/Metabolic: Reports: Diabetes, type II, IDDM, Other (See Below). Denies: Diabetes, Type I, Diabetes Mellitus, Type 3c Other Endocrine/Metabolic Family History: Paternal uncle with IDDM. Patient denies borderline hyperglycemia and hypothyroidism in his mother. Hematologic: Reports: None. Denies: Anemia, SLE Immunologic: Reports: None. Denies: AIDS, HIV, SLE Dermatologic: Reports: None. Denies: Eczema, Psoriasis Oncologic: Reports: Other (See Below) Other Oncologic Family History: Paternal aunt with breast cancer in her 70s. Sister with breast cancer in her late 40s possible ovarian metastases? Mother with cervical cancer in her early 30s. Maternal grandmother with cervical versus uterine cancer fatal in her 60s. - Tobacco Use Smoking Status *Q: Current Every Day Smoker Years of Tobacco use: 30 Packs/Tins Daily: 1 Second Hand Smoke Exposure: No - Caffeine Use Caffeine Use: Reports: Coffee, Soda - Recreational Drug Use Recreational Drug Use: No - Sexual History Sexual History: Reports: Single Partner - Living Situation & Occupation Living situation: Reports: (2014. 2 children with another significant other relationship.), with Family () Occupation: Employed ED ROS GENERAL - Review of Systems Review Of Systems: See Below Constitutional: Reports: Malaise, Fatigue, Decreased Appetite. Denies: Fever, Chills, Weakness, Night Sweats, Diaphoresis HEENT: Reports: Other (Eventually felt like it was harder to swallow once allergic reaction progressed. ). Denies: Ear Pain, Eye Discharge, Rhinitis, Sinus Problem, Throat Pain, Vertigo, Vision Change Respiratory: Denies: Shortness of Breath, Wheezing, Pleuritic Chest Pain, Cough , Sputum, Hemoptysis Cardiovascular: Denies: Chest Pain, Dyspnea on Exertion, Edema, Lightheadedness , Palpitations, PND, Syncope GI/Abdominal: Reports: Abdominal Pain, Diarrhea, Decreased Appetite, Nausea, Vomiting. Denies: Black Stool, Bloody Stool, Constipation, Difficulty Swallowing, Hematemesis, Hematochezia : Reports: No Symptoms Musculoskeletal: Reports: Other (diffuse aches/headache AFTER the allergic reaction was initiated) Skin: Reports: Urticaria Neurological: Denies: Confusion, Dizziness, Headache, Numbness, Paresthesia, Syncope Psychiatric: Reports: No Symptoms Hematologic/Lymphatic: Reports: No Symptoms ED EXAM, GENERAL - Physical Exam Exam: See Below Exam Limited By: No Limitations General Appearance: Alert, WD/WN, Anxious Eye Exam: Bilateral Eye: EOMI, PERRL Ears: Normal External Exam, Hearing Grossly Normal Nose: No: Nasal Deformity, Nasal Swelling, Nasal Drainage Throat/Mouth: Normal Lips, Normal Oropharynx, Normal Voice, No Airway Compromise Head: Atraumatic, Other Neck: Normal Inspection, Supple, Non-Tender, Full Range of Motion Respiratory/Chest: No Respiratory Distress, Lungs Clear, Normal Breath Sounds, No Accessory Muscle Use Cardiovascular: No Edema, No Murmur, Tachycardia Peripheral Pulses: 2+: Radial (L), Radial (R) GI/Abdominal: Soft, No Distention, No Abnormal Bruit, Tender (mild), Abnormal Bowel Sounds (decreased). No: Guarding, Rigid, Rebound (Male) Exam: Deferred Rectal (Males) Exam: Deferred Back Exam: No: CVA Tenderness (L), CVA Tenderness (R), Muscle Spasm, Paraspinal Tenderness, Vertebral Tenderness Extremities: Normal Range of Motion, Non-Tender, Normal Capillary Refill Neurological: Alert, Oriented, Normal Cognition, Normal Gait, No Motor/Sensory Deficits Psychiatric: Anxious Skin Exam: Warm, Dry, Rash (urticarial/hives) Course - Vital Signs Last Recorded V/S: Last Vital Signs Temp 36.6 C 03/20/19 19:43 Pulse 117 H 03/20/19 19:43 Resp 21 H 03/20/19 19:43 BP 151/99 H 03/20/19 19:43 Pulse Ox 95 03/20/19 19:43 - Orders/Labs/Meds Orders: Active Orders 24 hr Category Date Time Status Abdomen 2V AP Flat Upright [CR] Stat Exams 03/20/19 17:32 Ordered INFLUENZA A+B AG SCREEN [RM] Stat Lab 03/20/19 19:31 Ordered UA W/MICROSCOPIC [URIN] Stat Lab 03/20/19 17:31 Ordered Sodium Chloride 0.9% [Normal Saline] 1,000 ml Med 03/20/19 19:31 Ordered IV .BOLUS Sodium Chloride 0.9% [Saline Flush] Med 03/20/19 17:31 Active 10 ml FLUSH ASDIRECTED PRN Saline Lock Insert [OM.PC] Routine Oth 03/20/19 17:31 Ordered Medication Orders Sodium Chloride (Normal Saline) 1,000 mls @ 999 mls/hr IV .BOLUS ONE Stop: 03/20/19 20:31 Sodium Chloride (Saline Flush) 10 ml FLUSH ASDIRECTED PRN PRN Reason: Keep Vein Open Last Admin: 03/20/19 18:21 Dose: 10 ml Labs: Laboratory Tests 03/20/19 03/20/19 03/20/19 Range/Units 17:53 17:53 17:53 WBC 4.8 (4.0-10.2) K/uL RBC 5.61 H (4.33-5.41) M/uL Hgb 15.7 D (13.1-16.8) g/dL Hct 46.4 (39.0-49.0) % MCV 82.7 L D (84.0-98.0) fL MCH 28.0 L (28.2-33.3) pg MCHC 33.8 (31.7-36.0) g/dL RDW 13.5 (11.2-14.1) % Plt Count 185 (150-350) K/uL Neut % (Auto) 53.0 (45.0-80.0) % Lymph % (Auto) 39.4 (10.0-50.0) % [place] % (Auto) 6.3 (2.0-14.0) % Eos % (Auto) 1.1 (0.0-5.0) % Baso % (Auto) 0.2 (0.0-2.0) % Neut # (Auto) 2.52 (1.40-7.00) K/uL Lymph # (Auto) 1.87 (0.50-3.50) K/uL [place] # (Auto) 0.30 (0.00-1.00) K/uL Eos # (Auto) 0.05 (0.00-0.50) K/uL Baso # (Auto) 0.01 (0.00-0.20) K/uL Sodium 141 (136-145) mmol/L Potassium 3.5 (3.5-5.1) mmol/L Chloride 104 (98-107) mmol/L Carbon Dioxide 24.3 (21.0-32.0) mmol/L BUN 14 (7-18) mg/dL Creatinine 0.92 (0.51-1.17) mg/dL Est Cr Clr Drug Dosing TNP Estimated GFR (MDRD) > 60 mL/min Glucose 109 H (74-106) mg/dL Lactic Acid 1.6 (0.4-2.0) mmol/L Calcium 8.9 (8.5-10.1) mg/dL Total Bilirubin 0.6 (0.2-1.0) mg/dL AST 48 H (15-37) U/L ALT 71 (12-78) U/L Alkaline Phosphatase 72 (46-116) IU/L Total Protein 7.8 (6.4-8.2) g/dL Albumin 3.7 (3.4-5.0) g/dL Ethyl Alcohol (0.000-0.080) g/dL 03/20/19 Range/Units 17:53 WBC (4.0-10.2) K/uL RBC (4.33-5.41) M/uL Hgb (13.1-16.8) g/dL Hct (39.0-49.0) % MCV (84.0-98.0) fL MCH (28.2-33.3) pg MCHC (31.7-36.0) g/dL RDW (11.2-14.1) % Plt Count (150-350) K/uL Neut % (Auto) (45.0-80.0) % Lymph % (Auto) (10.0-50.0) % [place] % (Auto) (2.0-14.0) % Eos % (Auto) (0.0-5.0) % Baso % (Auto) (0.0-2.0) % Neut # (Auto) (1.40-7.00) K/uL Lymph # (Auto) (0.50-3.50) K/uL [place] # (Auto) (0.00-1.00) K/uL Eos # (Auto) (0.00-0.50) K/uL Baso # (Auto) (0.00-0.20) K/uL Sodium (136-145) mmol/L Potassium (3.5-5.1) mmol/L Chloride (98-107) mmol/L Carbon Dioxide (21.0-32.0) mmol/L BUN (7-18) mg/dL Creatinine (0.51-1.17) mg/dL Est Cr Clr Drug Dosing Estimated GFR (MDRD) mL/min Glucose (74-106) mg/dL Lactic Acid (0.4-2.0) mmol/L Calcium (8.5-10.1) mg/dL Total Bilirubin (0.2-1.0) mg/dL AST (15-37) U/L ALT (12-78) U/L Alkaline Phosphatase (46-116) IU/L Total Protein (6.4-8.2) g/dL Albumin (3.4-5.0) g/dL Ethyl Alcohol 0.000 (0.000-0.080) g/dL Meds: Medications Generic Name Dose Route Start Last Admin Trade Name Freq PRN Reason Stop Dose Admin Sodium Chloride 1,000 mls @ 999 mls/hr 03/20/19 19:31 Normal Saline IV 03/20/19 20:31 .BOLUS ONE Sodium Chloride 10 ml 03/20/19 17:31 03/20/19 18:21 Saline Flush FLUSH 10 ml ASDIRECTED PRN Administration Keep Vein Open Discontinued Medications Generic Name Dose Route Start Last Admin Trade Name Freq PRN Reason Stop Dose Admin Diphenhydramine HCl Confirm 03/20/19 17:48 03/20/19 18:11 Benadryl Administered 03/20/19 17:49 Not Given Dose 50 mg .ROUTE .STK-MED ONE Diphenhydramine HCl 50 mg 03/20/19 17:48 03/20/19 18:02 Benadryl IVPUSH 03/20/19 17:49 50 mg ONETIME ONE Administration Diphenhydramine HCl 50 mg 03/20/19 18:17 03/20/19 18:21 Benadryl IVPUSH 03/20/19 18:18 50 mg ONETIME ONE Administration Sodium Chloride 1,000 mls @ 999 mls/hr 03/20/19 18:41 03/20/19 18:42 Normal Saline IV 03/20/19 19:41 999 mls/hr .BOLUS ONE Administration Lorazepam Confirm 03/20/19 19:08 03/20/19 19:17 Ativan Administered 03/20/19 19:09 Not Given Dose 2 mg .ROUTE .STK-MED ONE Lorazepam 1 mg 03/20/19 19:08 03/20/19 19:08 Ativan IVPUSH 03/20/19 19:09 1 mg ONETIME ONE Administration Methylprednisolone Sodium Succinate Confirm 03/20/19 18:05 03/20/19 18:13 Solu-Medrol Administered 03/20/19 18:06 Not Given Dose 125 mg .ROUTE .STK-MED ONE Methylprednisolone Sodium Succinate 125 mg 03/20/19 18:05 03/20/19 18:05 Solu-Medrol IVPUSH 03/20/19 18:06 125 mg ONETIME ONE Administration Ondansetron HCl Confirm 03/20/19 18:05 03/20/19 18:17 Zofran Administered 03/20/19 18:06 Not Given Dose 4 mg .ROUTE .STK-MED ONE Ondansetron HCl 4 mg 03/20/19 18:05 03/20/19 18:05 Zofran IVPUSH 03/20/19 18:06 4 mg ONETIME ONE Administration - Radiology Interpretation Free Text/Narrative:: Scattered air/fluid levels noted, suggestive of ileus which could be linked with recent gastroenteritis. - Re-Assessments/Exams Free Text/Narrative Re-Assessment/Exam: 03/20/19 20:08 CBC/Chem/Lactic acid unremarkable. Patient received 50mg Benadryl after he noted allergic reaction to the juice developing. This was later followed by Solumedrol and additional Benadryl when reaction appeared to progress. Patient refusing EpiPen initially. Rash noted to improve. Patient then complained of aches/shakes that often develop with his allergic reactions. Also reported headache. Emesis. Received Zofran, IV fluid bolus. Tachycardia remained but rash resolved/itchy throat resolved. Elected to admit patient observation given the reaction and continued issues with abdominal pain/emesis. Suspect gastroenteritis, however will request influenza testing. Departure - Departure Time of Disposition: 20:12 Disposition: Refer to Observation Clinical Impression: Gastroenteritis Allergic reaction Qualifiers: Encounter type: initial encounter Qualified Code(s): T78.40XA - Allergy, unspecified, initial encounter - Discharge Information *PRESCRIPTION DRUG MONITORING PROGRAM REVIEWED*: Not Applicable *COPY OF PRESCRIPTION DRUG MONITORING REPORT IN PATIENT LARRY: Not Applicable Referrals: Sarika Balderrama PA-C [Primary Care Provider] - Forms: ED Department Discharge - Problem List & Annotations (1) Allergic reaction SNOMED Code(s): 262467053 Code(s): T78.40XA - ALLERGY, UNSPECIFIED, INITIAL ENCOUNTER Status: Acute Priority: High Current Visit: Yes Annotation/Comment:: Allergic reaction to fruit flavored Naked Juice. History of food allergies. Received Benadryl and SoluMedrol in ER. Admitted to observation. Qualifiers: Encounter type: initial encounter Qualified Code(s): T78.40XA - Allergy, unspecified, initial encounter (2) Gastroenteritis SNOMED Code(s): 29843527 Code(s): K52.9 - NONINFECTIVE GASTROENTERITIS AND COLITIS, UNSPECIFIED Status: Acute Priority: High Current Visit: Yes Onset Date: 03/15/19 Annotation/Comment:: Was appearing to improve over the weekend but abdominal pain returned when patient returned to work at [employer] today. Xray suggestive of mild ileus however Radiology needs to review formally. (3) Chronic headaches SNOMED Code(s): 381089102 Code(s): R51 - HEADACHE Status: Chronic Priority: Low Current Visit: No Annotation/Comment:: History of migraines/chronic headaches. Remote history of concussion. (4) Anxiety and depression SNOMED Code(s): 797976497 Code(s): F41.9 - ANXIETY DISORDER, UNSPECIFIED; F32.9 - MAJOR DEPRESSIVE DISORDER, SINGLE EPISODE, UNSPECIFIED Status: Chronic Priority: Medium Current Visit: Yes Annotation/Comment:: History of anxiety and depression under moderate control. Observe. (5) HTN, Essential hypertension SNOMED Code(s): 37188719 Code(s): I10 - ESSENTIAL (PRIMARY) HYPERTENSION Status: Chronic Priority : Medium Current Visit: Yes Onset Date: 11/20/13 Annotation/Comment:: Continue to observe closely during this hospitalization and by his regular providers. (6) COPD, Mild chronic obstructive pulmonary disease SNOMED Code(s): 017954253 Code(s): J44.9 - CHRONIC OBSTRUCTIVE PULMONARY DISEASE, UNSPECIFIED Status : Chronic Priority: Medium Current Visit: No Onset Date: 03/13/14 Annotation/Comment:: Smoker. No acute complaints at this time suggestive of COPD exacerbation. (7) Dyslipidemia SNOMED Code(s): 781940988 Code(s): E78.5 - HYPERLIPIDEMIA, UNSPECIFIED Status: Acute Priority: Low Current Visit: No Onset Date: 03/14/14 Annotation/Comment:: Follow up with primary provider. (8) Osteoarthritis SNOMED Code(s): 739987825 Code(s): M19.90 - UNSPECIFIED OSTEOARTHRITIS, UNSPECIFIED SITE Status: Chronic Priority: Low Current Visit: Yes Annotation/Comment:: Stable per patient. Increase in general discomfort s/p allergic reaction. Qualifiers: Osteoarthritis location: multiple joints Osteoarthritis type: primary Qualified Code(s): M15.0 - Primary generalized (osteo)arthritis - Problem List Review Problem List Initiated/Reviewed/Updated: Yes - My Orders Last 24 Hours: My Active Orders 03/20/19 17:31 UA W/MICROSCOPIC [URIN] Stat Sodium Chloride 0.9% [Saline Flush] 10 ml FLUSH ASDIRECTED PRN Saline Lock Insert [OM.PC] Routine 03/20/19 17:32 Abdomen 2V AP Flat Upright [CR] Stat 03/20/19 19:31 INFLUENZA A+B AG SCREEN [RM] Stat Sodium Chloride 0.9% [Normal Saline] 1,000 ml IV .BOLUS - Assessment/Plan Admission H&P: Please use this note as an admission H&P Last 24 Hours: My Active Orders 03/20/19 17:31 UA W/MICROSCOPIC [URIN] Stat Sodium Chloride 0.9% [Saline Flush] 10 ml FLUSH ASDIRECTED PRN Saline Lock Insert [OM.PC] Routine 03/20/19 17:32 Abdomen 2V AP Flat Upright [CR] Stat 03/20/19 19:31 INFLUENZA A+B AG SCREEN [RM] Stat Sodium Chloride 0.9% [Normal Saline] 1,000 ml IV .BOLUS Assessment:: as above Plan: Will continue monitoring patient for changes. Telemetry. IV fluids. Anticipate discharge home tomorrow if patient improves overnight.
[2019-03-20] MEDS ORDERED: traMADol 50 MG Tab PO PRN (20:27)
[2019-03-20] MEDS ORDERED: EPINEPHrine 0.3 MG/0.3 ML Pen Autoinjector IM PRN (20:27)
[2019-03-20] MEDS ORDERED: SUMAtriptan 6 MG/0.5 ML SDV SUBCUT ONE (20:29)
[2019-03-20] MEDS ORDERED: LORazepam 2 MG/ML SDV IVPUSH PRN (20:30)
[2019-03-20] MEDS ORDERED: diphenhydrAMINE 50 MG/ML SDV IVPUSH PRN (20:30)
[2019-03-20] MEDS: SUMAtriptan 50 MG Tab PO PRN ×2 (21:05→23:24)
[2019-03-20] MEDS: Sodium Chloride 0.9% 1,000 ML IV SCH (21:09)
[2019-03-20] MEDS ORDERED: fentaNYL 100 MCG/2 ML SDV IVPUSH ONE (22:00)
[2019-03-20] MEDS: Aluminum Hydroxide/Magnesium Hydroxide/Simethicone Susp 30 ML Cup PO PRN ×2 (22:16→23:40)
[2019-03-20] MEDS: Acetaminophen 325 MG Tab PO PRN (23:26)
[2019-03-21] MEDS ORDERED: Lisinopril 5 MG Tab PO SCH ×2 (00:30→20:00)
[2019-03-21] MEDS: Sodium Chloride 0.9% 1,000 ML IV SCH (07:34)
[2019-03-21] MEDS ORDERED: Loratadine 10 MG Tab PO SCH (08:00)
[2019-03-21 10:58] VITALS: BP 126/84; PULSE 90
--- NOTE | 2019-03-21 11:16 | PCM.DCSUM1 ---
Discharge Summary - Hospital Course Brief History: Admitted for treatment of allergic reaction as well as dehydration/gastroenteritis Diagnosis: Stroke: No - Discharge Data Discharge Date: 03/21/19 Discharge Disposition: Home, Self-Care 01 Condition: Good - Referral to Home Health Primary Care Physician: Sarika Balderrama PA-C - Discharge Diagnosis/Problem(s) (1) Allergic reaction SNOMED Code(s): 916825780 ICD Code: T78.40XA - ALLERGY, UNSPECIFIED, INITIAL ENCOUNTER Status: Acute Priority: High Current Visit: Yes Problem Details: Allergic reaction to fruit flavored Naked Juice. History of food allergies. Received Benadryl and SoluMedrol in ER. Improved overnight. Qualifiers: Encounter type: initial encounter Qualified Code(s): T78.40XA - Allergy, unspecified, initial encounter (2) Gastroenteritis SNOMED Code(s): 25125610 ICD Code: K52.9 - NONINFECTIVE GASTROENTERITIS AND COLITIS, UNSPECIFIED Status: Acute Priority: High Current Visit: Yes Onset Date: 03/15/19 Problem Details: Was appearing to improve over the weekend but abdominal pain returned when patient returned to work at [employer]. Significant improvement overnight s/p Zofran and IV fluids. Abdominal cramping is gone. Single stool last night. No nausea/emesis this morning. Toleraged clear fluids and later toast. Advancing diet. (3) Chronic headaches SNOMED Code(s): 785599029 ICD Code: R51 - HEADACHE Status: Chronic Priority: Low Current Visit: No Problem Details: History of migraines/chronic headaches. Remote history of concussion. Did develop headache after admission last night which was relieved by Imitrex. (4) Anxiety and depression SNOMED Code(s): 261830484 ICD Code: F41.9 - ANXIETY DISORDER, UNSPECIFIED; F32.9 - MAJOR DEPRESSIVE DISORDER, SINGLE EPISODE, UNSPECIFIED Status: Chronic Priority: Medium Current Visit: Yes Problem Details: History of anxiety and depression under moderate control. Observe. (5) HTN, Essential hypertension SNOMED Code(s): 81706191 ICD Code: I10 - ESSENTIAL (PRIMARY) HYPERTENSION Status: Chronic Priority : Medium Current Visit: Yes Onset Date: 11/20/13 Problem Details: Continue to observe closely during this hospitalization and by his regular providers. (6) COPD, Mild chronic obstructive pulmonary disease SNOMED Code(s): 469101532 ICD Code: J44.9 - CHRONIC OBSTRUCTIVE PULMONARY DISEASE, UNSPECIFIED Status : Chronic Priority: Medium Current Visit: No Onset Date: 03/13/14 Problem Details: Smoker. No acute complaints at this time suggestive of COPD exacerbation. (7) Dyslipidemia SNOMED Code(s): 669621961 ICD Code: E78.5 - HYPERLIPIDEMIA, UNSPECIFIED Status: Acute Priority: Low Current Visit: No Onset Date: 03/14/14 Problem Details: Follow up with primary provider. (8) Osteoarthritis SNOMED Code(s): 478538568 ICD Code: M19.90 - UNSPECIFIED OSTEOARTHRITIS, UNSPECIFIED SITE Status: Chronic Priority: Low Current Visit: Yes Problem Details: Stable per patient. Increase in general discomfort s/p allergic reaction. Qualifiers: Osteoarthritis location: multiple joints Osteoarthritis type: primary Qualified Code(s): M15.0 - Primary generalized (osteo)arthritis - Patient Summary/Data Complications: None Hospital Course: Patient received IV Solumedrol and Benadryl in the ER (refused EpiPen) and within 15 minutes urticaria started to show improvement. No respiratory compromise observed. Patient's anxiety increased and Ativan given. Also received IV fluids/Zofran for mild dehydration from gastroenteritis. Did have several episodes of vomiting in ER but uncertain if that was due to the gastroenteritis or anxiety/allergic reaction. Continued to receive IV fluids overnight. Allergic reaction resolved, no further emesis/diarrhea. He feels much improved this morning. - Patient Instructions Diet: Usual Diet as Tolerated (advance as tolerated) Activity: As Tolerated Driving: Do Not Drive Showering/Bathing: May Shower Other/Special Instructions: Advance diet as tolerated. OK to take Benadryl 1-2 tabs every 6 hours if any persistent signs of allergic reaction are noted. Follow up in ER if you have sudden worsening problems. - Discharge Plan *PRESCRIPTION DRUG MONITORING PROGRAM REVIEWED*: Not Applicable *COPY OF PRESCRIPTION DRUG MONITORING REPORT IN PATIENT LARRY: Not Applicable Home Medications: Home Meds ALPRAZolam [Xanax] 0.5 mg PO BEDTIME PRN 10/12/16 [History] Lisinopril 5 mg PO BEDTIME 10/12/16 [History] SUMAtriptan [Imitrex] 1 tab PO ASDIRECTED PRN 02/13/18 [History] Loratadine [Claritin] 10 mg PO QAM 08/29/18 [History] Acetaminophen [Tylenol] 650 mg PO Q4H PRN tablet 08/30/18 [Rx] traMADol [Ultram] 50 mg PO Q6H PRN tablet 08/30/18 [Rx] EPINEPHrine [Epipen] 0.3 mg IM ASDIRECTED PRN 03/20/19 [History] Forms: ED Department Discharge Referrals: Sarika Balderrama PA-C [Primary Care Provider] - - Discharge Summary/Plan Comment DC Time >30 min.: Yes (will have ride home early this afternoon) - General Info Date of Service: 03/21/19 Admission Dx/Problem (Free Text: Allergic reaction/gastroenteritis/dehydration Subjective Update: Patient feels much improved today. Still a bit groggy from Benadryl per self report. No further emesis/diarrhea. Tolerating fluids/food. Functional Status: Reports: Pain Controlled, Tolerating Diet, Ambulating, Urinating. Denies: New Symptoms - Review of Systems General: Reports: Fatigue. Denies: Fever, Malaise, Chills, Night Sweats HEENT: Reports: No Symptoms Pulmonary: Reports: No Symptoms Cardiovascular: Reports: No Symptoms Gastrointestinal: Reports: No Symptoms. Denies: Abdominal Pain, Diarrhea, Nausea, Vomiting Genitourinary: Reports: No Symptoms Musculoskeletal: Reports: No Symptoms Skin: Reports: No Symptoms Neurological: Reports: No Symptoms. Denies: Headache Psychiatric: Reports: No Symptoms - Patient Data Vitals - Most Recent: Last Vital Signs Temp 36.9 C 03/21/19 10:58 Pulse 90 03/21/19 10:58 Resp 16 03/21/19 10:58 BP 126/84 03/21/19 10:58 Pulse Ox 97 03/21/19 10:58 Weight - Most Recent: 89.902 kg I&O - Last 24 hours: Intake & Output 03/20/19 03/21/19 03/21/19 22:59 06:59 14:59 Intake Total 994 1364 810 Output Total 775 1500 400 Balance 219 -136 410 Lab Results - Last 24 hrs: Laboratory Results - last 24 hr 03/20/19 03/20/19 03/20/19 Range/Units 17:31 17:53 17:53 WBC 4.8 (4.0-10.2) K/uL RBC 5.61 H (4.33-5.41) M/uL Hgb 15.7 D (13.1-16.8) g/dL Hct 46.4 (39.0-49.0) % MCV 82.7 L D (84.0-98.0) fL MCH 28.0 L (28.2-33.3) pg MCHC 33.8 (31.7-36.0) g/dL RDW 13.5 (11.2-14.1) % Plt Count 185 (150-350) K/uL Neut % (Auto) 53.0 (45.0-80.0) % Lymph % (Auto) 39.4 (10.0-50.0) % Ransom % (Auto) 6.3 (2.0-14.0) % Eos % (Auto) 1.1 (0.0-5.0) % Baso % (Auto) 0.2 (0.0-2.0) % Neut # (Auto) 2.52 (1.40-7.00) K/uL Lymph # (Auto) 1.87 (0.50-3.50) K/uL Ransom # (Auto) 0.30 (0.00-1.00) K/uL Eos # (Auto) 0.05 (0.00-0.50) K/uL Baso # (Auto) 0.01 (0.00-0.20) K/uL Sodium 141 (136-145) mmol/L Potassium 3.5 (3.5-5.1) mmol/L Chloride 104 (98-107) mmol/L Carbon Dioxide 24.3 (21.0-32.0) mmol/L BUN 14 (7-18) mg/dL Creatinine 0.92 (0.51-1.17) mg/dL Est Cr Clr Drug Dosing TNP Estimated GFR (MDRD) > 60 mL/min Glucose 109 H (74-106) mg/dL Lactic Acid (0.4-2.0) mmol/L Calcium 8.9 (8.5-10.1) mg/dL Total Bilirubin 0.6 (0.2-1.0) mg/dL AST 48 H (15-37) U/L ALT 71 (12-78) U/L Alkaline Phosphatase 72 (46-116) IU/L Total Protein 7.8 (6.4-8.2) g/dL Albumin 3.7 (3.4-5.0) g/dL Specimen Type Urinblad Urine Color Yellow Urine Appearance Clear Urine pH 7.0 (5.0-9.0) Ur Specific [place] 1.015 (1.005-1.030) Urine Protein Negative (NEGATIVE) mg/dL Urine Glucose (UA) Negative (NEGATIVE) mg/dL Urine Ketones Trace H (NEGATIVE) mg/dL Urine Occult Blood Negative (NEGATIVE) Urine Nitrite Negative (NEGATIVE) Urine Bilirubin Negative (NEGATIVE) Urine Urobilinogen 0.2 (0.2-1.0) E.U./dL Ur Leukocyte Esterase Negative (NEGATIVE) Urine RBC Not seen /HPF Urine WBC Not seen /HPF Urine Bacteria Not seen (NONE TO FEW) /HPF Urine Mucus Rare H (NEGATIVE) /LPF Ethyl Alcohol (0.000-0.080) g/dL 03/20/19 03/20/19 Range/Units 17:53 17:53 WBC (4.0-10.2) K/uL RBC (4.33-5.41) M/uL Hgb (13.1-16.8) g/dL Hct (39.0-49.0) % MCV (84.0-98.0) fL MCH (28.2-33.3) pg MCHC (31.7-36.0) g/dL RDW (11.2-14.1) % Plt Count (150-350) K/uL Neut % (Auto) (45.0-80.0) % Lymph % (Auto) (10.0-50.0) % Ransom % (Auto) (2.0-14.0) % Eos % (Auto) (0.0-5.0) % Baso % (Auto) (0.0-2.0) % Neut # (Auto) (1.40-7.00) K/uL Lymph # (Auto) (0.50-3.50) K/uL Ransom # (Auto) (0.00-1.00) K/uL Eos # (Auto) (0.00-0.50) K/uL Baso # (Auto) (0.00-0.20) K/uL Sodium (136-145) mmol/L Potassium (3.5-5.1) mmol/L Chloride (98-107) mmol/L Carbon Dioxide (21.0-32.0) mmol/L BUN (7-18) mg/dL Creatinine (0.51-1.17) mg/dL Est Cr Clr Drug Dosing Estimated GFR (MDRD) mL/min Glucose (74-106) mg/dL Lactic Acid 1.6 (0.4-2.0) mmol/L Calcium (8.5-10.1) mg/dL Total Bilirubin (0.2-1.0) mg/dL AST (15-37) U/L ALT (12-78) U/L Alkaline Phosphatase (46-116) IU/L Total Protein (6.4-8.2) g/dL Albumin (3.4-5.0) g/dL Specimen Type Urine Color Urine Appearance Urine pH (5.0-9.0) Ur Specific [place] (1.005-1.030) Urine Protein (NEGATIVE) mg/dL Urine Glucose (UA) (NEGATIVE) mg/dL Urine Ketones (NEGATIVE) mg/dL Urine Occult Blood (NEGATIVE) Urine Nitrite (NEGATIVE) Urine Bilirubin (NEGATIVE) Urine Urobilinogen (0.2-1.0) E.U./dL Ur Leukocyte Esterase (NEGATIVE) Urine RBC /HPF Urine WBC /HPF Urine Bacteria (NONE TO FEW) /HPF Urine Mucus (NEGATIVE) /LPF Ethyl Alcohol 0.000 (0.000-0.080) g/dL EREN Results - Last 24 hrs: Microbiology 03/21/19 07:30 Influenza Type A Antigen Screen - Final Nasal Aspirate, Unspecified NEGATIVE INFLUENZA A VIRUS AG REFERENCE RANGE: NEGATIVE Influenza Type B Antigen Screen - Final NEGATIVE INFLUENZA B VIRUS AG REFERENCE RANGE: NEGATIVE Med Orders - Current: Current Medications Acetaminophen (Tylenol) 650 mg PO Q4H PRN PRN Reason: Pain (Mild 1-3)/fever Last Admin: 03/20/19 23:26 Dose: 650 mg Al Hydroxide/Mg Hydroxide (Mag-Al Plus) 30 ml PO ASDIRECTED PRN PRN Reason: Heartburn Last Admin: 03/20/19 23:40 Dose: 30 ml Diphenhydramine HCl (Benadryl) 50 mg IVPUSH Q6H PRN PRN Reason: Allergies Epinephrine HCl (Epipen) 0.3 mg IM ASDIRECTED PRN PRN Reason: Allergies Sodium Chloride (Normal Saline) 1,000 mls @ 125 mls/hr IV ASDIRECTED MARY Last Admin: 03/21/19 07:34 Dose: 125 mls/hr Lisinopril (Prinivil) 5 mg PO BEDTIME [facility] Last Admin: 03/21/19 00:39 Dose: 5 mg Loratadine (Claritin) 10 mg PO QAM [facility] Last Admin: 03/21/19 07:14 Dose: 10 mg Lorazepam (Ativan) 0.5 mg IVPUSH Q6H PRN PRN Reason: Anxiety Sodium Chloride (Saline Flush) 10 ml FLUSH ASDIRECTED PRN PRN Reason: Keep Vein Open Last Admin: 03/20/19 18:21 Dose: 10 ml Sumatriptan Succinate (Imitrex) 50 mg PO ASDIRECTED PRN PRN Reason: Pain Last Admin: 03/20/19 23:24 Dose: 50 mg Tramadol HCl (Ultram) 50 mg PO Q6H PRN PRN Reason: Pain (moderate 4-6) Last Admin: 03/21/19 00:37 Dose: 50 mg Discontinued Medications Diphenhydramine HCl (Benadryl) Confirm Administered Dose 50 mg .ROUTE .STK-MED ONE Stop: 03/20/19 17:49 Last Admin: 03/20/19 18:11 Dose: Not Given Diphenhydramine HCl (Benadryl) 50 mg IVPUSH ONETIME ONE Stop: 03/20/19 17:49 Last Admin: 03/20/19 18:02 Dose: 50 mg Diphenhydramine HCl (Benadryl) 50 mg IVPUSH ONETIME ONE Stop: 03/20/19 18:18 Last Admin: 03/20/19 18:21 Dose: 50 mg Fentanyl (Sublimaze) 100 mcg IVPUSH ONETIME ONE Stop: 03/20/19 22:01 Last Admin: 03/20/19 22:02 Dose: Not Given Sodium Chloride (Normal Saline) 1,000 mls @ 999 mls/hr IV .BOLUS ONE Stop: 03/20/19 19:41 Last Admin: 03/20/19 18:42 Dose: 999 mls/hr Sodium Chloride (Normal Saline) 1,000 mls @ 999 mls/hr IV .BOLUS ONE Stop: 03/20/19 20:31 Last Admin: 03/20/19 19:30 Dose: 999 mls/hr Lisinopril (Prinivil) 5 mg PO BEDTIME MARY Lorazepam (Ativan) Confirm Administered Dose 2 mg .ROUTE .STK-MED ONE Stop: 03/20/19 19:09 Last Admin: 03/20/19 19:17 Dose: Not Given Lorazepam (Ativan) 1 mg IVPUSH ONETIME ONE Stop: 03/20/19 19:09 Last Admin: 03/20/19 19:08 Dose: 1 mg Methylprednisolone Sodium Succinate (Solu-Medrol) Confirm Administered Dose 125 mg .ROUTE .STK-MED ONE Stop: 03/20/19 18:06 Last Admin: 03/20/19 18:13 Dose: Not Given Methylprednisolone Sodium Succinate (Solu-Medrol) 125 mg IVPUSH ONETIME ONE Stop: 03/20/19 18:06 Last Admin: 03/20/19 18:05 Dose: 125 mg Ondansetron HCl (Zofran) Confirm Administered Dose 4 mg .ROUTE .STK-MED ONE Stop: 03/20/19 18:06 Last Admin: 03/20/19 18:17 Dose: Not Given Ondansetron HCl (Zofran) 4 mg IVPUSH ONETIME ONE Stop: 03/20/19 18:06 Last Admin: 03/20/19 18:05 Dose: 4 mg Sumatriptan Succinate (Imitrex) 6 mg SUBCUT ONETIME ONE Stop: 03/20/19 20:30 Last Admin: 03/20/19 22:57 Dose: Not Given - Exam General: Reports: Alert, Oriented, Cooperative, No Acute Distress HEENT: Reports: Pupils Equal, Pupils Reactive, EOMI, Mucous Membr. Moist/Jarrell Neck: Reports: Supple Lungs: Reports: Clear to Auscultation, Normal Respiratory Effort Cardiovascular: Reports: Regular Rate, Regular Rhythm GI/Abdominal Exam: Soft, Non-Tender, No Distention, No Mass, Other (decreased bowel sounds throughout) (Male) Exam: Deferred Rectal (Males) Exam: Deferred Back Exam: Denies: CVA Tenderness (L), CVA Tenderness (R), Muscle Spasm Extremities: Normal Range of Motion, Non-Tender, No Pedal Edema, Normal Capillary Refill Skin: Reports: Warm, Dry Neurological: Reports: No New Focal Deficit Psy/Mental Status: Reports: Alert, Normal Affect, Normal Mood
[2019-03-21] MEDS: Acetaminophen 325 MG Tab PO PRN (11:23)
== END 2019-03-21 12:11 | disposition home or self-care (01) ==
LOC: LL.ED 17:20 → LL.MS 19:30
PROVIDERS: ADMIT Emergency Medicine; ATTEND Emergency Medicine
DX: T78.1XXA Other adverse food reactions, not elsewhere classified, initial encounter (principal); K52.9 Noninfective gastroenteritis and colitis, unspecified; E86.0 Dehydration; R51 Headache; I10 Essential (primary) hypertension; J44.9 Chronic obstructive pulmonary disease, unspecified; E78.5 Hyperlipidemia, unspecified; E78.00 Pure hypercholesterolemia, unspecified; M15.0 Primary generalized (osteo)arthritis; F41.9 Anxiety disorder, unspecified; F32.9 Major depressive disorder, single episode, unspecified; F17.210 Nicotine dependence, cigarettes, uncomplicated; Z91.018 Allergy to other foods; Z91.048 Other nonmedicinal substance allergy status; Z88.6 Allergy status to analgesic agent; Z79.899 Other long term (current) drug therapy
CPT/HCPCS: 36415; 74019; 80053; 81001; 83605; 85025; 87804; 96361; 96374; 96375; 99285-25; A9270-GY; G0378; G0480; J1200; J2060; J2405; J2930; J7030

== ENCOUNTER 2019-11-07 18:45 | Emergency (ER) | payer BC ==
[2019-11-07] MEDS ORDERED: diphenhydrAMINE 50 MG/ML SDV IVPUSH ONE (18:49)
[2019-11-07] MEDS ORDERED: Sodium Chloride 0.9% 10 ML Syringe FLUSH PRN (18:55)
--- NOTE | 2019-11-07 19:11 | EDM.PDOC ---
ED HPI GENERAL MEDICAL PROBLEM - General Chief Complaint: Allergic Reaction Stated Complaint: allergic reaction Time Seen by Provider: 11/07/19 19:07 Source of Information: Reports: Patient, Family History Limitations: Reports: No Limitations - History of Present Illness INITIAL COMMENTS - FREE TEXT/NARRATIVE: Pt ate and apple this evening and felt "funny" did use epi-pen No Benadryl No chest pain No hives No SOB currently Has no taken Benadryl Has issues with certain fruits in past Onset: Today, Sudden Location: Reports: Generalized Context: Reports: Other (Fruit allergy) - Related Data Allergies Allergy/AdvReac Type Severity Reaction Status Date / Time apple Allergy Airway Verified 11/07/19 19:06 Tightness apricot Allergy Airway Verified 11/07/19 19:00 Tightness cat dander Allergy Sneezing Verified 11/07/19 19:00 dog dander Allergy Sneezing Verified 11/07/19 19:00 ibuprofen Allergy unknown Verified 11/07/19 19:00 nectarine Allergy Airway Uncoded 11/07/19 19:00 Tightness tangerine Allergy Airway Uncoded 11/07/19 19:00 Tightness Home Meds: Home Meds ALPRAZolam [Xanax] 0.5 mg PO BEDTIME PRN 10/12/16 [History] Lisinopril 5 mg PO BEDTIME 10/12/16 [History] SUMAtriptan [Imitrex] 1 tab PO ASDIRECTED PRN 02/13/18 [History] Loratadine [Claritin] 10 mg PO QAM 08/29/18 [History] Acetaminophen [Tylenol] 650 mg PO Q4H PRN tablet 08/30/18 [Rx] traMADol [Ultram] 50 mg PO Q6H PRN tablet 08/30/18 [Rx] EPINEPHrine [Epipen] 0.3 mg IM ASDIRECTED PRN 03/20/19 [History] Propranolol HCl [Propranolol] 1 cap PO Q12HR 11/07/19 [History] Past Medical History HEENT History: Reports: Allergic Rhinitis, Impaired Vision, Other (See Below) Other HEENT History: Patient does wear reading glasses. No current treatment for his borderline bilateral hearing loss. Cardiovascular History: Reports: High Cholesterol, Hypertension, Other (See Below) Other Cardiovascular History: Grade 1 diastolic dysfunction. Dyslipidemia with no current medical therapy. Respiratory History: Reports: COPD, Intubation, Previous Gastrointestinal History: Reports: Cholelithiasis Genitourinary History: Reports: None Musculoskeletal History: Reports: Amputation, Arthritis, Fracture, Osteoporosis, Other (See Below) Other Musculoskeletal History: Left fourth metacarpal fracture at age 17 with pin placement. Bilateral knuckle fractures in his teenage years with no surgeries. 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 Possible head concussion while playing football as a teenager. Psychiatric History: Reports: Addiction, Anxiety, Depression, Panic Attack, Psych Hospitalization(s), Suicide Attempt, Suicidal Ideation Other Psychiatric History: Attempted medication overdose about age 16 and 17 and in his early 20s with psychiatric hospitalizations on both of these occasions. Daily marijuana use as below. Endocrine/Metabolic History: Reports: None Hematologic History: Reports: None Immunologic History: Reports: None Oncologic (Cancer) History: Reports: None Dermatologic History: Reports: None - Infectious Disease History Infectious Disease History: Reports: Chicken Pox. Denies: C-Difficile, Measles, Meningitis, Mononucleosis, MRSA, Mumps, Pertussis (Whooping Cough), Rheumatic Fever, Rubella, Scarlet Fever, Shingles, TB, VRE - Past Surgical History Head Surgeries/Procedures: Reports: None HEENT Surgical History: Reports: Oral Surgery, Other (See Below) Other HEENT Surgeries/Procedures: [place] teeth extraction 4 with additional multiple teeth extractions. Cardiovascular Surgical History: Reports: None Respiratory Surgical History: Reports: None GI Surgical History: Reports: Appendectomy, Cholecystectomy, Other (See Below) Other GI Surgeries/Procedures: Appendectomy in 2000. Laparoscopic cholecystectomy on 08/07/02 colonoscopy in about 1994. EGD on 06/12/02. Male Surgical History: Reports: Circumcision, Other (See Below) Other Male Surgeries/Procedures: Circumcision as an infant. Endocrine Surgical History: Reports: None Musculoskeletal Surgical History: Reports: Arthroscopic Knee, Arthroscopic Procedure, Carpal Tunnel, ORIF, Shoulder Surgery, Other (See Below) Other Musculoskeletal Surgeries/Procedures:: Multiple orthopedic surgeries as above, including left knee arthroscopic surgery in about 2010, right-sided shoulder surgery in 2001, left-sided shoulder surgery in 2005. ORIF pin placement of left fourth metacarpal fracture at age 17. Right ulnar bone graft and shortening in his early 30s initially in 1997 and then repeated in 1968. 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 Oncologic Surgical History: Reports: None Dermatological Surgical History: Reports: None - Past Imaging History Past Imaging History: Reports: Bone Scan (Limited bone scan of the thoracic and lumbar spines on 02/24/07.), Cardiac Echo (Echocardiogram on 03/26/14 with ejection fraction of 5560 percent and otherwise results as above.), CAT Scan (CT of the head on 11/20/13. CT of the lumbar spine on 02/04/07.), MRI (MRI of the Right knee on 06/28/17 indicating a medial meniscal tear. MRI of the left elbow on 03/11/16 and 02/22/15. MRI of the brain on 11/21/13.), Stress Testing (Mildly Positive Cardiolite stress test on 03/22/14 with no further heart catheterization.). Denies: Angiography Social & Family History - Family History HEENT: Reports: None Cardiac: Reports: Bypass, CAD, High Cholesterol, Hypertension, [place], Stent, Other (See Below) Other Cardiac Family History: Maternal aunt with CABG in her 70s with history of multiple MIs fatal in her 90s. Maternal uncle with PTCA/stent in his 60s. Maternal grandfather with fatal unknown type of heart disease in his 70s. Brother with PTCA/stent at age 60. Hypertension in mother, maternal aunts 4, sisters 2, brothers 2, and father. Hyperlipidemia in mother and sister. Father with multiple MIs initially in his 70s and previous multiple PTCA/stents and CABG with CVAs as below. Respiratory: Reports: COPD, Other (See Below) Other Respiratory Family Hisory: Paternal uncle with COPD and history of tobacco use. Maternal uncle with COPD and asbestos exposure. GI: Reports: None : Reports: None OBGYN: Reports: None Musculoskeletal: Reports: None Neurological: Reports: CVA, Dementia, Other (See Below) Other Neurological Family History: Maternal uncles 2 with dementia in their early 70s. Father with recurrent CVAs and secondary dementia with fatal CVA at age 84. Maternal uncle with fatal CVA in his late 60s. Psychiatric: Reports: None, Anxiety, Depression, Other (See Below) Other Psychiatric Family History: Sisters 2 with anxiety depression disorder. Endocrine/Metabolic: Reports: Diabetes, type II, IDDM, Other (See Below) Other Endocrine/Metabolic Family History: Paternal uncle with IDDM. Patient denies borderline hyperglycemia and hypothyroidism in his mother. Hematologic: Reports: None Immunologic: Reports: None Dermatologic: Reports: None Oncologic: Reports: Other (See Below) Other Oncologic Family History: Paternal aunt with breast cancer in her 70s. Sister with breast cancer in her late 40s possible ovarian metastases? Mother with cervical cancer in her early 30s. Maternal grandmother with cervical versus uterine cancer fatal in her 60s. - Tobacco Use Smoking Status *Q: Current Every Day Smoker Years of Tobacco use: 20 Packs/Tins Daily: 0.8 - Caffeine Use Caffeine Use: Reports: Coffee, Soda - Sexual History Sexual History: Reports: Single Partner - Living Situation & Occupation Living situation: Reports: (2013. 2 children with another significant other relationship.), with Family () Occupation: Employed ED ROS ALLERGIC REACTION - Review of Systems Review Of Systems: See Below Constitutional: Reports: No Symptoms HEENT: Reports: Other (Feels like throat is narrow) Respiratory: Reports: Shortness of Breath Cardiovascular: Reports: No Symptoms GI/Abdominal: Reports: No Symptoms Skin: Reports: No Symptoms ED EXAM GENERAL NO PERIP PULSE - Physical Exam Exam: See Below Exam Limited By: No Limitations General Appearance: Alert, No Apparent Distress Throat/Mouth: Normal Oropharynx Neck: Supple Respiratory/Chest: Lungs Clear Cardiovascular: Regular Rate, Rhythm Extremities: Normal Inspection Neurological: Alert, Oriented, No Motor/Sensory Deficits Psychiatric: Normal Affect, Normal Mood Skin Exam: Intact Course - Vital Signs Last Recorded V/S: Last Vital Signs Temp 97.6 F 11/07/19 18:46 Pulse 81 11/07/19 18:46 Resp 18 11/07/19 18:46 BP 146/98 H 11/07/19 18:46 Pulse Ox 98 11/07/19 18:46 - Orders/Labs/Meds Orders: Active Orders 24 hr Category Date Time Status Sodium Chloride 0.9% [Saline Flush] Med 11/07/19 18:55 Active 10 ml FLUSH ASDIRECTED PRN Medication Orders Sodium Chloride (Saline Flush) 10 ml FLUSH ASDIRECTED PRN PRN Reason: Keep Vein Open Last Admin: 11/07/19 18:56 Dose: 10 ml Documented by: MARA Meds: Medications Generic Name Dose Route Start Last Admin Trade Name Freq PRN Reason Stop Dose Admin Sodium Chloride 10 ml 11/07/19 18:55 11/07/19 18:56 Saline Flush FLUSH 10 ml ASDIRECTED PRN Administration Keep Vein Open Discontinued Medications Generic Name Dose Route Start Last Admin Trade Name Freq PRN Reason Stop Dose Admin Diphenhydramine HCl 50 mg 11/07/19 18:49 11/07/19 18:49 Benadryl IVPUSH 11/07/19 18:50 50 mg ONETIME ONE Administration - Re-Assessments/Exams Free Text/Narrative Re-Assessment/Exam: 11/07/19 19:10 Pt given Benadryl 50 mg IV in ER 11/07/19 19:10 Pt able to eat ice chips in ER Departure - Departure Time of Disposition: 19:15 Disposition: Home, Self-Care 01 Clinical Impression: Allergic reaction Qualifiers: Encounter type: initial encounter Qualified Code(s): T78.40XA - Allergy, unspecified, initial encounter - Discharge Information *PRESCRIPTION DRUG MONITORING PROGRAM REVIEWED*: Not Applicable *COPY OF PRESCRIPTION DRUG MONITORING REPORT IN PATIENT LARRY: Not Applicable Instructions: Allergies, Adult, [id number] Referrals: Claudia Phillips PA [Primary Care Provider] - Additional Instructions: Benadryl as needed Follow up in clinic Sepsis Event Note (ED) - Evaluation Sepsis Screening Result: No Definite Risk - Focused Exam Vital Signs: Vital Signs Temp Pulse Resp BP Pulse Ox 11/07/19 18:46 97.6 F 81 18 146/98 H 98 - My Orders Last 24 Hours: My Active Orders 11/07/19 18:55 Sodium Chloride 0.9% [Saline Flush] 10 ml FLUSH ASDIRECTED PRN - Assessment/Plan Last 24 Hours: My Active Orders 11/07/19 18:55 Sodium Chloride 0.9% [Saline Flush] 10 ml FLUSH ASDIRECTED PRN
[2019-11-07 19:59] VITALS: BP 134/92; PULSE 74
== END 2019-11-07 20:00 | disposition home or self-care (01) ==
LOC: LL.ED 18:45
DX: T78.40XA Allergy, unspecified, initial encounter (principal); I10 Essential (primary) hypertension; J44.9 Chronic obstructive pulmonary disease, unspecified; E78.5 Hyperlipidemia, unspecified; F41.0 Panic disorder [episodic paroxysmal anxiety]; F32.9 Major depressive disorder, single episode, unspecified; F17.210 Nicotine dependence, cigarettes, uncomplicated; Z91.018 Allergy to other foods; Z91.09 Other allergy status, other than to drugs and biological substances; Z88.6 Allergy status to analgesic agent; Z88.8 Allergy status to other drugs, medicaments and biological substances; Z79.899 Other long term (current) drug therapy
CPT/HCPCS: 96374; 99283; 99283-25; J1200

== ENCOUNTER 2019-12-01 13:29 | Emergency (ER) | payer BC ==
--- NOTE | 2019-12-01 13:30 | EDM.PDOC ---
ED HPI GENERAL MEDICAL PROBLEM - General Chief Complaint: Allergic Reaction Stated Complaint: allergic reaction Time Seen by Provider: 12/01/19 13:30 Source of Information: Reports: Patient, Family (), Old Records ([facility] chart/EMR), Other ([facility] EMR reviewed on 08/29/2018) History Limitations: Reports: No Limitations - History of Present Illness INITIAL COMMENTS - FREE TEXT/NARRATIVE: The patient was brought to the emergency room via private automobile for evaluation of a returned allergic reaction after the patient once again ate some apples this morning despite his previous known allergy to this fruit with similar allergic reaction and evaluation in our emergency room on 11/07/2019. He has refused allergy testing to this point. No other known change in allergen exposure. The patient did take 25 mg of Benadryl about 15 minutes prior to arrival with beginning nonspecific frontal headaches, dyspnea, and throat fullness without angioedema, etc. at about 11:45 AM this morning. He did not take his EpiPen today. No history of recent visual changes, diplopia, change in mental status, or other change in neurological status. The patient denies any chest pain/pressure, heart flutter, dizziness, orthostasis, orthopnea, diaphoresis, paresthesias, recent decreased exercise tolerance, or any other anginal-type symptoms. No recent history of abdominal pain, heartburn, nausea, diarrhea, melena, gross hematochezia, or any food intolerance, including fatty foods, etc.. The patient also denies any recent fever, cough, wheezing, etc.. Onset: Today, Gradual Onset Date: 12/01/19 Onset Time: 11:45 Duration: Constant, Getting Worse Location: Reports: Head, Other (As above). Denies: Face, Neck, Chest, Abdomen, Back, Upper Extremity, Left, Upper Extremity, Right, Radiates to Quality: Reports: Same as Previous Episode Severity: Moderate Improves with: Reports: None Worsens with: Reports: None Context: Reports: Other (As above). Denies: Sick Contact, Trauma Associated Symptoms: Reports: Headaches, Shortness of Breath. 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) (As above) Headache Pain Score (Numeric/FACES): 8 - Related Data Allergies Allergy/AdvReac Type Severity Reaction Status Date / Time apple Allergy Airway Verified 11/07/19 19:06 Tightness apricot Allergy Airway Verified 11/07/19 19:00 Tightness cat dander Allergy Sneezing Verified 11/07/19 19:00 dog dander Allergy Sneezing Verified 11/07/19 19:00 ibuprofen Allergy unknown Verified 11/07/19 19:00 nectarine Allergy Airway Uncoded 11/07/19 19:00 Tightness tangerine Allergy Airway Uncoded 11/07/19 19:00 Tightness Home Meds: Home Meds ALPRAZolam [Xanax] 0.5 mg PO BEDTIME PRN 10/12/16 [History] Lisinopril 5 mg PO BEDTIME 10/12/16 [History] SUMAtriptan [Imitrex] 1 tab PO ASDIRECTED PRN 02/13/18 [History] Loratadine [Claritin] 10 mg PO QAM 08/29/18 [History] Acetaminophen [Tylenol] 650 mg PO Q4H PRN tablet 08/30/18 [Rx] traMADol [Ultram] 50 mg PO Q6H PRN tablet 08/30/18 [Rx] EPINEPHrine [Epipen] 0.3 mg IM ASDIRECTED PRN 03/20/19 [History] Albuterol Sulfate [Albuterol Sulfate Hfa] 2 puff IH Q2H PRN 11/07/19 [History] Propranolol HCl [Propranolol] 1 cap PO Q12HR 11/07/19 [History] diphenhydrAMINE HCL [Benadryl] 50 mg PO Q4H PRN #100 capsule 12/01/19 [Rx] Past Medical History HEENT History: Reports: Allergic Rhinitis, Impaired Vision, Other (See Below). Denies: Cataract, Hard of Hearing, Macular Degeneration, Otitis Media, Retinal Detachment Other HEENT History: Patient does wear reading glasses. No current treatment for his borderline bilateral hearing loss. Cardiovascular History: Reports: High Cholesterol, Hypertension, Other (See Below). Denies: Afib, Aneurysm, Arrhythmia, Blood Clots/VTE/DVT, CAD, Cardiomyopathy, Heart Failure, Heart Murmur, TN, PVD, Syncope Other Cardiovascular History: Grade 1 diastolic dysfunction. Dyslipidemia with no current medical therapy. Respiratory History: Reports: COPD, Intubation, Previous. Denies: Asthma, Bronchitis, Recurrent, Intubation, Difficult, PE, Pneumonia, Recurrent, Pneumothorax, Sleep Apnea, TB Gastrointestinal History: Reports: Cholelithiasis. Denies: Celiac Disease, Chronic Constipation, Chronic Diarrhea, Colon Polyp, Fecal Incontinence, Gastritis, GERD, GI Bleed, Hepatitis, Hiatal Hernia, Inflammatory Bowel Disease, Irritable Bowel Syndrome, Jaundice, Pancreatitis, PUD Genitourinary History: Reports: None. Denies: Acute Renal Failure, BPH, Chronic Renal Insuffiency, Renal Calculus, Retention, Urinary, STD, Urinary Incontinence, UTI, Recurrent Musculoskeletal History: Reports: Amputation, Arthritis, Fracture, Osteoarthritis, Other (See Below). Denies: Back Pain, Chronic, Gout, Neck Pain, Chronic, RA, SLE Other Musculoskeletal History: Left fourth metacarpal fracture at age 17 with pin placement. Bilateral knuckle fractures in his teenage years with no surgeries. Neurological History: Reports: Concussion, Headaches, Chronic, Head Trauma, Migraines, Other (See Below). 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 Possible head concussion while playing football as a teenager. Psychiatric History: Reports: Addiction, Anxiety, Depression, Panic Attack, Psych Hospitalization(s), Suicide Attempt, Suicidal Ideation. Denies: Abuse, Victim of, ADD, ADHD, PTSD Other Psychiatric History: Attempted medication overdose about age 16 and 17 and in his early 20s with psychiatric hospitalizations on both of these occasions. Daily marijuana use as below. Endocrine/Metabolic History: Reports: None. Denies: Diabetes, Type I, Diabetes, Type II, Diabetes Mellitus, Type 3c, Hypothyroidism, IDDM, Obesity/BMI 30+ Hematologic History: Reports: None. Denies: Anemia, Blood Transfusion(s) Immunologic History: Reports: None. Denies: AIDS, HIV, SLE Oncologic (Cancer) History: Reports: None. Denies: Basal Cell Carcinoma, Colon, Hodgkin's Lymphoma, Leukemia, Lymphoma, Malignant Melanoma, Non-Hodgkin's Lymphoma, Prostate, Squamous Cell Carcinoma Dermatologic History: Reports: None. Denies: Eczema, Psoriasis - Infectious Disease History Infectious Disease History: Reports: Chicken Pox. Denies: C-Difficile, Measles, Meningitis, Mononucleosis, MRSA, Mumps, Pertussis (Whooping Cough), Rheumatic Fever, Rubella, Scarlet Fever, Shingles, TB, VRE - Past Surgical History Head Surgeries/Procedures: Reports: None HEENT Surgical History: Reports: Oral Surgery, Other (See Below). Denies: Adenoidectomy, Cataract Surgery, Eye Surgery, Laser Surgery, LASIK, Myringotomy w Tube(s), Naso-Sinus Surgery, Tonsillectomy Other HEENT Surgeries/Procedures: [place] teeth extraction 4 with additional multiple teeth extractions. Cardiovascular Surgical History: Reports: None. Denies: Varicose Respiratory Surgical History: Reports: None. Denies: Thoracentesis GI Surgical History: Reports: Appendectomy, Cholecystectomy, Other (See Below). Denies: Colonoscopy, EGD, Hernia, Abdominal, Hernia, Inguinal, Hernia Repair/Other, Polypectomy Other GI Surgeries/Procedures: Appendectomy in 2000. Laparoscopic cholecystectomy on 08/07/02. Colonoscopy in about 1994. EGD on 06/12/02. Male Surgical History: Reports: Circumcision, Other (See Below). Denies: Vasectomy Other Male Surgeries/Procedures: Circumcision as an infant. Endocrine Surgical History: Reports: None. Denies: Thyroid Biopsy Neurological Surgical History: Reports: None. Denies: C-Spine, Discectomy, Laminectomy, Lumbar Spine, Sacral Spine, Spinal Fusion, Thoracic Spine, Vertebroplasty Musculoskeletal Surgical History: Reports: Amputation, Arthroscopic Knee, Arthroscopic Procedure, Carpal Tunnel, ORIF, Shoulder Surgery, Other (See Below). Denies: Ganglion Cyst, Joint Replacement Other Musculoskeletal Surgeries/Procedures:: Multiple orthopedic surgeries as above, including left knee arthroscopic surgery in about 2010, right-sided shoulder surgery in 2001, left-sided shoulder surgery in 2005. ORIF pin placement of left fourth metacarpal fracture at age 17. Right ulnar bone graft and shortening in his early 30s initially in 1997 and then repeated in . 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 Oncologic Surgical History: Reports: None Dermatological Surgical History: Reports: None - Past Imaging History Past Imaging History: Reports: Bone Scan (Limited bone scan of the thoracic and lumbar spines on 02/24/07.), Cardiac Echo (Echocardiogram on 03/26/14 with ejection fraction of 5560 percent and otherwise results as above.), CAT Scan (CT of the head on 11/20/13. CT of the lumbar spine on 02/04/07.), MRI (MRI of the Right knee on 06/28/17 indicating a medial meniscal tear. MRI of the left elbow on 03/11/16 and 02/22/15. MRI of the brain on 11/21/13.), Stress Testing (Mildly Positive Cardiolite stress test on 03/22/14 with no further heart catheterization.). Denies: Angiography Social & Family History - Family History HEENT: Reports: None. Denies: Glaucoma, Macular Degeneration, Retinal Detachment Cardiac: Reports: Bypass, CAD, High Cholesterol, Hypertension, TN, Stent, Other (See Below). Denies: Afib, Aneurysm, Arrhythmia, Blood Clots/VTE/DVT Other Cardiac Family History: Maternal aunt with CABG in her 70s with history of multiple MIs fatal in her 90s. Maternal uncle with PTCA/stent in his 60s. Maternal grandfather with fatal unknown type of heart disease in his 70s. Brother with PTCA/stent at age 60. Hypertension in mother, maternal aunts 4, sisters 2, brothers 2, and father. Hyperlipidemia in mother and sister. Father with multiple MIs initially in his 70s and previous multiple PTCA/stents and CABG with CVAs as below. Respiratory: Reports: COPD, Other (See Below) Other Respiratory Family Hisory: Paternal uncle with COPD and history of tobacco use. Maternal uncle with COPD and asbestos exposure. GI: Reports: None. Denies: Celiac Disease, Cholelithiasis, Colon Polyps, GERD, GI bleed, Inflammatory Bowel Disease, Irritable Bowel Syndrome, PUD : Reports: None. Denies: Renal Calculus, Renal Disease/Insufficiency OBGYN: Reports: None. Denies: Dysfunctional uterine bleeding, Endometriosis, Recurrent Spontaneous Musculoskeletal: Reports: None. Denies: Arthritis, Gout, RA, SLE Neurological: Reports: Alzheimers Disease, CVA, Dementia, Other (See Below). Denies: Cerebral Aneurysms Other Neurological Family History: Maternal uncles 2 with dementia in their early 70s. Father with recurrent CVAs and secondary dementia with fatal CVA at age 84. Maternal uncle with fatal CVA in his late 60s. Psychiatric: Reports: Anxiety, Depression, Other (See Below). Denies: Abuse, Victim of, ADD, ADHD, Psych Hospitalization(s), Psychosis, PTSD, Suicide Attempt Other Psychiatric Family History: Sisters 2 with anxiety depression disorder. Endocrine/Metabolic: Reports: Diabetes, type II, IDDM, Other (See Below). Denies: Diabetes, Gestational, Diabetes, Type I, Diabetes Mellitus, Type 3c Other Endocrine/Metabolic Family History: Paternal uncle with IDDM. Patient denies borderline hyperglycemia and hypothyroidism in his mother. Hematologic: Reports: None. Denies: Anemia, SLE Immunologic: Reports: None. Denies: AIDS, HIV, SLE Dermatologic: Reports: None. Denies: Eczema, Psoriasis Oncologic: Reports: Breast, Ovarian, Uterine, Other (See Below). Denies: Cervix, Colon, Hodgkin's Lymphoma, Leukemia, Lung, Lymphoma, Non-Hodgkin's Lymphoma, Prostate, Skin Other Oncologic Family History: Paternal aunt with breast cancer in her 70s. Sister with breast cancer in her late 40s possible ovarian metastases? Mother with cervical cancer in her early 30s. Maternal grandmother with cervical versus uterine cancer fatal in her 60s. - Tobacco Use Smoking Status *Q: Current Every Day Smoker Tobacco Use Within Last Twelve Months: Cigarettes Years of Tobacco use: 33 Packs/Tins Daily: 0.5 Packs/Tins Daily Comment: Started smoking at age 21 with maximum use of 1.5 packs/day. Used Tobacco, but Quit: No Smoking Cessation Information Provided To Patient: Yes Second Hand Smoke Exposure: No Second Hand Smoke Education Provided: No - Caffeine Use Caffeine Use: Reports: Coffee (2 cups/day), Soda (1 soda per day). Denies: Energy Drinks, Tea - Alcohol Use Alcohol Use History: Yes Days Per Week of Alcohol Use: 0 Number of Drinks Per Day: 1 Number of Drinks Per Day Comment: Usually mixed drinks about 3 times per year. No previous DWIs, problems with alcohol abuse, etc. Total Drinks Per Week: 0 Alcohol Use in Last Twelve Months: Yes - Recreational Drug Use Recreational Drug Use: Yes Drug Use in Last 12 Months: Yes Recreational Drug Type: Reports: Marijuana/Hashish (Daily use since age 17.). Denies: Amphetamines (Speed), Dextromethorphan (Cough Syrup), Heroin, Inhalants (Glues, Solvents, Aerosols), LSD (Acid), Methamphetamine, Morphine, Oxycodone - Sexual History Sexual History: Reports: Single Partner - Living Situation & Occupation Living situation: Reports: (2014. 2 children with another significant other relationship.), with Family () Occupation: Employed ED ROS ALLERGIC REACTION - Review of Systems Review Of Systems: Comprehensive ROS is negative, except as noted in HPI. ED EXAM GENERAL NO PERIP PULSE - Physical Exam Exam: See Below Exam Limited By: No Limitations General Appearance: Alert, WD/WN, No Apparent Distress, Anxious (Moderate) Eye Exam: Bilateral Eye: EOMI, Normal Inspection (No nystagmus), PERRL Ears: Normal Canal, Hearing Grossly Normal, Normal TMs, Hearing Loss (Stable borderline bilateral) Nose: Normal Inspection, Normal Mucosa, No Blood Throat/Mouth: Normal Inspection, Normal Lips, Normal Teeth, Normal Gums, Normal Oropharynx, Normal Voice, No Airway Compromise, Other (No uvular swelling or facial angioedema). No: Dysphagia, Perioral Cyanosis Head: Atraumatic, Normocephalic Neck: Normal Inspection, Supple, Non-Tender, Full Range of Motion. No: Lymphadenopathy (L), Lymphadenopathy (R), Thyromegaly Respiratory/Chest: No Respiratory Distress, Lungs Clear, Normal Breath Sounds, No Accessory Muscle Use, Chest Non-Tender. No: Pleural Rub, Retractions Cardiovascular: Normal Peripheral Pulses, Regular Rate, Rhythm, No Edema, No Gallop, No JVD, No Murmur, No Rub. No: Gallop/S3, Gallop/S4, Friction Rub GI/Abdominal: Normal Bowel Sounds, Soft, Non-Tender, No Organomegaly, No Distention, No Abnormal Bruit, No Mass. No: Guarding (Male) Exam: Deferred Rectal (Males) Exam: Deferred Back Exam: Normal Inspection, Full Range of Motion. No: CVA Tenderness (L), CVA Tenderness (R), Muscle Spasm Extremities: Normal Inspection, Normal Range of Motion, Non-Tender, No Pedal Edema, Normal Capillary Refill. No: Selene's Sign Neurological: Alert, Oriented, CN II-XII Intact, Normal Cognition, Normal Gait, No Motor/Sensory Deficits Psychiatric: Anxious (Moderate), Depressed Mood (Moderate with adequate eye contact) Skin Exam: Warm, Dry, Intact, Normal Color, No Rash. No: Diaphoretic, Wound/Incision Lymphatic: No Adenopathy Course - Vital Signs Last Recorded V/S: Last Vital Signs Temp 36.4 C 12/01/19 13:45 Pulse 62 12/01/19 13:45 Resp 20 12/01/19 13:45 BP 158/98 H 12/01/19 13:45 Pulse Ox 100 12/01/19 13:45 Vital Signs - 24 hr 12/01/19 13:45 Temperature [ 36.4 C Temporal] Pulse, 62 Peripheral [ Left Pulse Oximetry] Respiratory 20 Rate Blood Pressure 158/98 H [Right Upper Arm] O2 Sat by Pulse 100 Oximetry - Orders/Labs/Meds Orders: Active Orders 24 hr Category Date Time Status Peripheral IV Care [RC] . DIRECTED Care 12/01/19 13:33 Active Sodium Chloride 0.9% [Saline Flush] Med 12/01/19 13:31 Active 10 ml FLUSH ASDIRECTED PRN Obtain Past Medical Record [OM.PC] Routine Oth 12/01/19 13:34 Active Peripheral IV Insertion Adult [OM.PC] Stat Oth 12/01/19 13:31 Ordered Medication Orders Sodium Chloride (Saline Flush) 10 ml FLUSH ASDIRECTED PRN PRN Reason: Keep Vein Open Labs: None Meds: Medications Generic Name Dose Route Start Last Admin Trade Name Freq PRN Reason Stop Dose Admin Sodium Chloride 10 ml 12/01/19 13:31 Saline Flush FLUSH ASDIRECTED PRN Keep Vein Open Discontinued Medications Generic Name Dose Route Start Last Admin Trade Name Freq PRN Reason Stop Dose Admin Diphenhydramine HCl 50 mg 12/01/19 13:33 12/01/19 13:39 Benadryl IVPUSH 12/01/19 13:34 50 mg ONETIME ONE Administration Epinephrine HCl 0.3 mg 12/01/19 13:31 12/01/19 13:35 Adrenalin IM 12/01/19 13:32 0.3 mg ONETIME ONE Administration Famotidine 40 mg 12/01/19 13:33 12/01/19 13:41 Pepcid IVPUSH 12/01/19 13:34 40 mg ONETIME ONE Administration Lorazepam 0.5 mg 12/01/19 14:10 12/01/19 14:14 Ativan IVPUSH 12/01/19 14:11 0.5 mg ONETIME ONE Administration - Radiology Interpretation Free Text/Narrative:: None Departure - Departure Time of Disposition: 14:40 Disposition: Home, Self-Care 01 Condition: Good Clinical Impression: HTN, Essential hypertension, Illicit drug use, continuous, Tobacco abuse counseling, Mixed anxiety depressive disorder, COPD, Mild chronic obstructive pulmonary disease Allergic reaction Qualifiers: Encounter type: initial encounter Qualified Code(s): T78.40XA - Allergy, unspecified, initial encounter Chronic headaches Qualifiers: Headache type: tension-type Intractability: not intractable Qualified Code(s): G44.229 - Chronic tension-type headache, not intractable - Discharge Information *PRESCRIPTION DRUG MONITORING PROGRAM REVIEWED*: Not Applicable *COPY OF PRESCRIPTION DRUG MONITORING REPORT IN PATIENT LARRY: Not Applicable Prescriptions: diphenhydrAMINE HCL [Benadryl] 50 mg PO Q4H PRN #100 capsule PRN Reason: Allergies Instructions: Food Allergy Referrals: Claudia Phillips PA [Primary Care Provider] - Additional Instructions: 1. Follow up with your regular provider in 10-14 days as needed, if symptoms persist. Bring these discharge instructions with you to that visit.. 2. Next dose of Benadryl in 4 hours as needed with sedation precautions with this medication 3. Sedation precautions with no driving, etc. for 18 hours because of emergency room medications. 4. Avoid all apples and other food and/or supplements secondary to urine allergic reactions 5. Use your EpiPen immediately if these reactions occur in the future. 6. Ice packs to head and neck, dark and quiet room, etc. as directed until headache resolves. 7. Work excuse- See Form 8. Stop all tobacco use EFRAIN as directed/per provided information and consider contacting [facility]uit [facility]ne, etc.. 9. Immediately after this visit verify that your cellular telephone's voicemail has been activated and is empty. Also verify that your home telephone's answering machine is operating properly and has space to receive messages. Note that it is sometimes necessary for us to be able to contact you at a later date to discuss your medical care. 10. Please remember that we are ALWAYS here for you and want to answer any que stions you may have. Feel free to call the hospital any time and we call you back EFRAIN. Sepsis Event Note (ED) - Focused Exam Vital Signs: Vital Signs Temp Pulse Resp BP Pulse Ox 12/01/19 13:45 36.4 C 62 20 158/98 H 100 - Problem List & Annotations (1) Allergic reaction SNOMED Code(s): 135702410 Code(s): T78.40XA - ALLERGY, UNSPECIFIED, INITIAL ENCOUNTER Status: Acute Priority: High Annotation/Comment:: Overall good results with aggressive therapy in the emergency room. Patient was counseled on proper use of OTC Benadryl and also the need to use his EpiPen EFRAIN. He was also cautioned not to eat foods, etc., which he is already allergic to. Note that he has refused allergy testing to this point. [employer]cat work excuse provided both for the patient and his . Qualifiers: Encounter type: initial encounter Qualified Code(s): T78.40XA - Allergy, unspecified, initial encounter (2) HTN, Essential hypertension SNOMED Code(s): 65882148 Code(s): I10 - ESSENTIAL (PRIMARY) HYPERTENSION Status: Chronic Priority: Medium Onset Date: 11/20/13 Annotation/Comment:: Blood pressure somewhat elevated in the emergency room. High anxiety component. Continue to observe closely by his regular provider. (3) COPD, Mild chronic obstructive pulmonary disease SNOMED Code(s): 469723433 Code(s): J44.9 - CHRONIC OBSTRUCTIVE PULMONARY DISEASE, UNSPECIFIED Status: Chronic Priority: Medium Onset Date: 03/13/14 Annotation/Comment:: No recent fever or bronchitic type symptoms. (4) Osteoarthritis SNOMED Code(s): 609249116 Code(s): M19.90 - UNSPECIFIED OSTEOARTHRITIS, UNSPECIFIED SITE Status: Chronic Priority: Medium Annotation/Comment:: Stable per patient. Qualifiers: Osteoarthritis location: multiple joints Osteoarthritis type: primary (5) Headache SNOMED Code(s): 96044028 Code(s): R51 - HEADACHE Status: Acute Priority: High Annotation/Comment:: Known history of mixed tension and migraine headaches. He already has medications at home. Some improvement with aggressive therapy as above. He denies having used his Ultram recently. Strong anxiety component. Qualifiers: Headache type: tension-type Headache chronicity pattern: acute headache Intractability: not intractable Qualified Code(s): G44.209 - Tension-type headache, unspecified, not intractable (6) Mixed anxiety depressive disorder SNOMED Code(s): 566938844 Code(s): F41.8 - OTHER SPECIFIED ANXIETY DISORDERS Status: Chronic Priority: Medium Annotation/Comment:: Moderate control based on today's evaluation with strong anxiety component to patient's above symptoms. Note daily marijuana use with distant history of suicidal ideation and attempt. Close follow-up by regular provider (7) Tobacco abuse counseling SNOMED Code(s): 229608948, 625808894, 953252090 Code(s): Z71.6 - TOBACCO ABUSE COUNSELING Status: Chronic Priority: Medium Annotation/Comment:: Tobacco and marijuana cessation once again strongly encouraged. He already has tobacco cessation information at home. (8) Illicit drug use, continuous SNOMED Code(s): 930200302 Code(s): F19.90 - OTHER PSYCHOACTIVE SUBSTANCE USE, UNSPECIFIED, UNCOMPLICATED Status: Chronic Priority: Medium Annotation/Comment:: As above - Problem List Review Problem List Initiated/Reviewed/Updated: Yes - My Orders Last 24 Hours: My Active Orders 12/01/19 13:31 Sodium Chloride 0.9% [Saline Flush] 10 ml FLUSH ASDIRECTED PRN Peripheral IV Insertion Adult [OM.PC] Stat 12/01/19 13:33 Peripheral IV Care [RC] . DIRECTED 12/01/19 13:34 Obtain Past Medical Record [OM.] Routine - Assessment/Plan Last 24 Hours: My Active Orders 12/01/19 13:31 Sodium Chloride 0.9% [Saline Flush] 10 ml FLUSH ASDIRECTED PRN Peripheral IV Insertion Adult [OM.PC] Stat 12/01/19 13:33 Peripheral IV Care [RC] . DIRECTED 12/01/19 13:34 Obtain Past Medical Record [OM.] Routine Assessment:: As above Plan: As above. Extensive precautions were given to the patient and his , who are in agreement with the treatment plan. See Patient Instructions for further treatment and plan.
[2019-12-01] MEDS ORDERED: Sodium Chloride 0.9% 10 ML Syringe FLUSH PRN (13:31)
[2019-12-01] MEDS ORDERED: EPINEPHrine 1 MG/1 ML Amp IM ONE (13:31)
[2019-12-01] MEDS ORDERED: diphenhydrAMINE 50 MG/ML SDV IVPUSH ONE (13:33)
[2019-12-01] MEDS ORDERED: Famotidine 20 MG/2 ML SDV IVPUSH ONE (13:33)
[2019-12-01] MEDS ORDERED: diphenhydrAMINE 50 MG/ML SDV ONE (13:39)
[2019-12-01] MEDS ORDERED: Famotidine 20 MG/2 ML SDV ONE (13:41)
[2019-12-01 13:48] VITALS: BP 158/98; PULSE 62
[2019-12-01] MEDS ORDERED: LORazepam 2 MG/ML SDV IVPUSH ONE (14:10)
[2019-12-01] MEDS ORDERED: LORazepam 2 MG/ML SDV ONE (14:13)
== END 2019-12-01 14:45 | disposition home or self-care (01) ==
LOC: LL.ED 13:29
DX: T78.1XXA Other adverse food reactions, not elsewhere classified, initial encounter (principal); G44.229 Chronic tension-type headache, not intractable; I10 Essential (primary) hypertension; Z71.6 Tobacco abuse counseling; F17.210 Nicotine dependence, cigarettes, uncomplicated; J44.9 Chronic obstructive pulmonary disease, unspecified; F19.90 Other psychoactive substance use, unspecified, uncomplicated; Z79.899 Other long term (current) drug therapy
CPT/HCPCS: 96372; 96374; 96375; 99283; J0171; J1200; J2060; J3490

== ENCOUNTER 2020-05-16 14:39 | Day surgery (SDC) | payer BC ==
[2020-05-16] MEDS: Lactated Ringers 1,000 ML IV SCH (12:34)
--- NOTE | 2020-05-16 13:17 | PCM.PN ---
- General Info Date of Service: 05/16/20 - Review of Systems Systems Review Comment:: 54-year-old male referred by Greg Umaña for colonoscopy. He is reported to have had a positive fit test. He denies any recent change in bowel pattern. His recent history and physical is reviewed. No significant changes are noted. I have discussed the proposed colonoscopy with the patient. Risks such as but not limited to bleeding and GI injury reviewed. He agrees to proceed. - Patient Data Vitals - Most Recent: Last Vital Signs Temp 98.0 F 05/16/20 12:35 Pulse 70 05/16/20 12:35 Resp 20 05/16/20 12:35 BP 114/81 05/16/20 12:35 Pulse Ox 100 05/16/20 12:35 Weight - Most Recent: 92.986 kg Med Orders - Current: Current Medications Lactated Ringer's (Ringers, Lactated) 1,000 mls @ 125 mls/hr IV ASDIRECTED MARY Last Admin: 05/16/20 12:34 Dose: 125 mls/hr Documented by: Sodium Chloride (Saline Flush) 10 ml FLUSH ASDIRECTED PRN PRN Reason: Keep Vein Open Discontinued Medications Midazolam HCl (Versed 1 Mg/Ml) Confirm Administered Dose 2 mg .ROUTE .STK-MED ONE Stop: 05/16/20 10:46 Propofol (Diprivan 20 Ml) Confirm Administered Dose 400 mg .ROUTE .STK-MED ONE Stop: 05/16/20 10:46 Sepsis Event Note - Focused Exam Vital Signs: Vital Signs Temp Pulse Resp BP Pulse Ox 05/16/20 12:35 98.0 F 70 20 114/81 100 - Problem List Review Problem List Initiated/Reviewed/Updated: Yes - My Orders Last 24 Hours: My Active Orders 05/16/20 11:15 Patient Status [ADT] Routine Peripheral IV Care [RC] . DIRECTED Verify Patient Consent Obtain [RC] ASDIRECTED Lactated Ringers [Ringers, Lactated] 1,000 ml IV ASDIRECTED Sodium Chloride 0.9% [Saline Flush] 10 ml FLUSH ASDIRECTED PRN Peripheral IV Insertion Adult [OM.PC] Routine - Assessment Assessment:: Positive fit test - Plan Plan:: Colonoscopy
--- NOTE | 2020-05-16 13:46 | PCM.OPNOTE ---
- General Post-Op/Procedure Note Date of Surgery/Procedure: 05/16/20 Operative Procedure(s): Colonoscopy Findings: Small internal hemorrhoids Pre Op Diagnosis: + FIT Test Post-Op Diagnosis: Hemorrhoids Anesthesia Technique: MAC Primary Surgeon: Tacos Johnson Pathology: none EBL in mLs: 0 Complications: None Condition: Good
[~2020-05-16 14:39] MED LIST: Midazolam 1 MG/ML 2 ML SDV ONE; Propofol 200 MG/20 ML SDV ONE; Sodium Chloride 0.9% 10 ML Syringe FLUSH PRN
--- NOTE | 2020-05-16 14:48 | OR ---
Date of Procedure: 05/16/2020 PREOPERATIVE DIAGNOSIS: Positive FIT test. POSTOPERATIVE DIAGNOSIS: Hemorrhoids. OPERATIONS PERFORMED: Colonoscopy. INDICATIONS FOR SURGERY: This 54-year-old male who was noted recently to have a positive FIT test. It has been many years since he had a colon evaluation. FINDINGS: The patient has small internal hemorrhoids with slight irritation. The remainder of the colon appears normal. DESCRIPTION OF PROCEDURE: The patient was taken to the operating room. He was given intravenous sedation, and with him in the left lateral decubitus position, digital rectal exam was performed showing no rectal masses. The Olympus colonoscope was inserted into the rectum. Retroflexed examination of the rectal canal was performed. The scope was then carefully advanced under direct visualization through the entire length of the colon until cecum was reached. Cecal acquisition was confirmed by noting normal internal cecal anatomy including the appendiceal orifice and the ileocecal valve. The light was also noted to transilluminate the abdominal wall in the right lower quadrant. After examining the cecum, the scope was slowly withdrawn sequentially re-examining the colonic segments until the entire colon and rectum had been fully examined. The scope was removed. The patient was taken from the operating room in satisfactory condition. ESTIMATED BLOOD LOSS: Zero. COMPLICATIONS: None. PROGNOSIS: Good. LAXMI Johnson MD /[id number]
[2020-05-16 14:56] VITALS: BP 127/86; PULSE 71
== END 2020-05-16 15:15 | disposition home or self-care (01) ==
LOC: LL.SDS 14:39
PROVIDERS: ATTEND Surgery
DX: K92.1 Melena (principal); R19.5 Other fecal abnormalities; K64.8 Other hemorrhoids; I10 Essential (primary) hypertension; F17.210 Nicotine dependence, cigarettes, uncomplicated; G43.109 Migraine with aura, not intractable, without status migrainosus; Z01.812 Encounter for preprocedural laboratory examination; Z20.822 Contact with and (suspected) exposure to COVID-19; Z90.49 Acquired absence of other specified parts of digestive tract; Z98.890 Other specified postprocedural states; Z79.899 Other long term (current) drug therapy; Z88.8 Allergy status to other drugs, medicaments and biological substances; Z91.018 Allergy to other foods
CPT/HCPCS: 00812; J2250; J2704; J7120; U0002

== ENCOUNTER 2021-08-27 16:35 | Emergency (ER) | payer OTHER, BC ==
[2021-08-27 16:52] VITALS: BP 147/98; PULSE 76
[2021-08-27] MEDS ORDERED: HYDROmorphone 1 MG/ML Syringe IM ONE (16:54)
[2021-08-27] MEDS ORDERED: Orphenadrine 60 MG/2 ML Inj IM ONE (16:56)
[2021-08-27] MEDS ORDERED: Ondansetron 4 MG Tab.DIS PO ONE (16:58)
[2021-08-27 17:25] LABS: ANION GAP 12.1 meq/L (7-15); CHLORIDE,CL 107 mmol/L (98-107); SODIUM,NA 142 mmol/L (136-145)
== END 2021-08-27 18:40 | disposition home or self-care (01) ==
LOC: LL.ED 16:35
DX: M54.50 Low back pain, unspecified (principal); J44.9 Chronic obstructive pulmonary disease, unspecified; I10 Essential (primary) hypertension; E66.9 Obesity, unspecified; Z68.31 Body mass index [BMI] 31.0-31.9, adult; Z91.018 Allergy to other foods; Z91.09 Other allergy status, other than to drugs and biological substances; Z88.8 Allergy status to other drugs, medicaments and biological substances
CPT/HCPCS: 36415; 80053; 81003; 83735; 85025; 96372; 99283; 99284; A9270-GY; J1170; J2360

== ENCOUNTER 2022-10-06 09:27 | Observation (INO) | payer BC ==
[2022-10-06] MEDS ORDERED: Sodium Chloride 0.9% 10 ML Syringe FLUSH PRN (10:00)
[2022-10-06] MEDS ORDERED: Diltiazem 120 MG Cap.CD PO ONE (10:02)
[2022-10-06] MEDS ORDERED: Diltiazem 25 MG/5 ML SDV IVPUSH ONE (10:03)
[2022-10-06] MEDS ORDERED: SUMAtriptan 6 MG/0.5 ML SDV SUBCUT ONE (10:14)
[2022-10-06 10:21] LABS: BASOPHILS ABSOLUTE AUTO 0.03 K/uL (0.00-0.20); BASOPHILS PERCENT AUTO 0.5 % (0.0-2.0); EOSINOPHILS ABSOLUTE AUTO 0.39 K/uL (0.00-0.50); EOSINOPHILS PERCENT AUTO 6.5 % (0.0-5.0); HEMATOCRIT 46.6 % (39.0-49.0); HEMOGLOBIN 15.5 g/dL (13.1-16.8); LYMPHOCYTES ABSOLUTE AUTO 2.32 K/uL (0.50-3.50); LYMPHOCYTES PERCENT AUTO 38.5 % (10.0-50.0); MEAN CORPUSCULAR HEMOGLOBIN 28.1 pg (28.2-33.3); MEAN CORPUSCULAR HGB CONC 33.3 g/dL (31.7-36.0); MEAN CORPUSCULAR VOLUME 84.4 fL (84.0-98.0); MONOCYTES ABSOLUTE AUTO 0.62 K/uL (0.00-1.00); MONOCYTES PERCENT AUTO 10.3 % (2.0-14.0); NEUTROPHILS ABSOLUTE AUTO 2.67 K/uL (1.40-7.00); NEUTROPHILS PERCENT AUTO 44.2 % (45.0-80.0); PLATELET COUNT,PLT 184 K/uL (150-350); RED BLOOD CELL COUNT 5.52 M/uL (4.33-5.41); RED CELL DISTRIBUTION WIDTH 14.2 % (11.2-14.1)
[2022-10-06] MEDS: Sodium Chloride 0.9% 1,000 ML IV SCH (10:51)
[2022-10-06 10:53] LABS: ALBUMIN 3.5 g/dL (3.4-5.0); ANION GAP 13.5 meq/L (7-15); BILIRUBIN TOTAL 0.4 mg/dL (0.2-1.0); CALCIUM 8.6 mg/dL (8.5-10.1); CARBON DIOXIDE,CO2 24.6 mmol/L (21.0-32.0); CREATININE 1.05 mg/dL (0.51-1.17); EST CRCL DRUG DOSING (CG) 74.19 mL/min; POTASSIUM,K 4.1 mmol/L (3.5-5.1); PROTEIN TOTAL,TP 7.3 g/dL (6.4-8.2)
[2022-10-06] MEDS ORDERED: Ketorolac 30 MG/ML SDV IVPUSH ONE (11:02)
[2022-10-06] MEDS ORDERED: Ondansetron 4 MG/2 ML SDV IVPUSH ONE (11:02)
[2022-10-06] MEDS ORDERED: Ketorolac 30 MG/ML SDV ONE (11:03)
[2022-10-06] MEDS ORDERED: Ondansetron 4 MG/2 ML SDV ONE (11:03)
[2022-10-06] MEDS ORDERED: Apixaban 5 MG Tab PO ONE ×2 (12:11→22:00)
[2022-10-06] MEDS ORDERED: Acetaminophen 325 MG Tab PO PRN (12:47)
[2022-10-06] MEDS ORDERED: Non-Formulary Medication 1 Each (Epinephrine [Epipen] 0.3 MG/0.3 ML Pen) IM PRN (12:57)
[2022-10-06] MEDS ORDERED: ALPRAZolam 0.25 MG Tab PO PRN (13:18)
[2022-10-06] MEDS ORDERED: Albuterol 6.7 GM Inhaler INH PRN (13:19)
[2022-10-06] MEDS ORDERED: EPINEPHrine 1 MG/ML SDV IM PRN (13:25)
[2022-10-06] MEDS ORDERED: ALPRAZolam 1 MG Tab PO ONE (14:12)
[2022-10-06] MEDS ORDERED: Topiramate 25 MG Tab PO SCH (20:00)
[2022-10-06] MEDS ORDERED: Lisinopril 5 MG Tab PO SCH (20:00)
[2022-10-07] MEDS ORDERED: Diltiazem 120 MG Cap.CD PO ONE (07:00)
[2022-10-07 07:30] LABS: BASOPHILS ABSOLUTE AUTO 0.02 K/uL (0.00-0.20); BASOPHILS PERCENT AUTO 0.3 % (0.0-2.0); EOSINOPHILS ABSOLUTE AUTO 0.36 K/uL (0.00-0.50); EOSINOPHILS PERCENT AUTO 5.7 % (0.0-5.0); HEMATOCRIT 46.3 % (39.0-49.0); HEMOGLOBIN 15.4 g/dL (13.1-16.8); LYMPHOCYTES ABSOLUTE AUTO 2.12 K/uL (0.50-3.50); LYMPHOCYTES PERCENT AUTO 33.8 % (10.0-50.0); MEAN CORPUSCULAR HEMOGLOBIN 28.2 pg (28.2-33.3); MEAN CORPUSCULAR HGB CONC 33.3 g/dL (31.7-36.0); MEAN CORPUSCULAR VOLUME 84.6 fL (84.0-98.0); MONOCYTES ABSOLUTE AUTO 0.59 K/uL (0.00-1.00); MONOCYTES PERCENT AUTO 9.4 % (2.0-14.0); NEUTROPHILS ABSOLUTE AUTO 3.18 K/uL (1.40-7.00); NEUTROPHILS PERCENT AUTO 50.8 % (45.0-80.0); PLATELET COUNT,PLT 174 K/uL (150-350); RED BLOOD CELL COUNT 5.47 M/uL (4.33-5.41); RED CELL DISTRIBUTION WIDTH 14.4 % (11.2-14.1); WHITE BLOOD CELL COUNT,WBC 6.3 K/uL (4.0-10.2)
[2022-10-07 07:56] LABS: CALCIUM 8.3 mg/dL (8.5-10.1); CARBON DIOXIDE,CO2 23.6 mmol/L (21.0-32.0); CREATININE 1.01 mg/dL (0.51-1.17); EST CRCL DRUG DOSING (CG) 77.13 mL/min; POTASSIUM,K 3.8 mmol/L (3.5-5.1)
[2022-10-07] MEDS ORDERED: Propranolol 80 MG Cap.ER PO SCH (08:00)
[2022-10-07] MEDS ORDERED: Omeprazole 20 MG Cap.CR PO SCH (08:00)
[2022-10-07 08:15] VITALS: BP 117/71; PULSE 81
[2022-10-07 08:21] LABS: ANION GAP 12.2 meq/L (7-15)
[2022-10-07] MEDS ORDERED: Apixaban 5 MG Tab PO ONE (09:00)
[2022-10-07] MEDS ORDERED: Aspirin 81 MG Tab.Chew PO ONE (09:18)
[2022-10-07] MEDS ORDERED: Heparin Sodium 5,000 Units/ML Vial IVPUSH ONE (09:26)
[2022-10-07] MEDS ORDERED: Heparin Sodium/0.45% NaCl 500 ML IV SCH (09:30)
[2022-10-07] MEDS: Sodium Chloride 0.9% 1,000 ML IV SCH (09:53)
[2022-10-07] MEDS ORDERED: Diltiazem 125 MG in Sodium Chloride 0.9% 100 ML IV SCH (10:30)
== END 2022-10-07 11:00 ==
LOC: LL.ED 09:27 → LL.MS 11:55
PROVIDERS: ADMIT Emergency Medicine; ATTEND Emergency Medicine
DX: I48.91 Unspecified atrial fibrillation (principal); I21.4 Non-ST elevation (NSTEMI) myocardial infarction; I20.9 Angina pectoris, unspecified; I10 Essential (primary) hypertension; E78.5 Hyperlipidemia, unspecified; I11.9 Hypertensive heart disease without heart failure; J44.9 Chronic obstructive pulmonary disease, unspecified; G47.30 Sleep apnea, unspecified; M19.90 Unspecified osteoarthritis, unspecified site; G43.909 Migraine, unspecified, not intractable, without status migrainosus; K21.9 Gastro-esophageal reflux disease without esophagitis; F41.9 Anxiety disorder, unspecified; F32.A Depression, unspecified; Z79.899 Other long term (current) drug therapy; Z91.018 Allergy to other foods; Z88.8 Allergy status to other drugs, medicaments and biological substances; Z90.49 Acquired absence of other specified parts of digestive tract; Z98.890 Other specified postprocedural states; Z87.891 Personal history of nicotine dependence
CPT/HCPCS: 36415; 71046; 80048; 80053; 83735; 83880; 84443; 84484; 85025; 85379; 93005; 93010; 96361; 96365; 96372; 96374; 96375; 96376; 99285-25; A9270-GY; G0378; J1644; J1885; J2405; J3030; J3490; J7030

== ENCOUNTER 2023-08-23 18:36 | Emergency (ER) | payer BC ==
[2023-08-23 19:08] VITALS: BP 124/86; PULSE 70
== END 2023-08-23 19:15 | disposition home or self-care (01) ==
LOC: LL.ED 18:36
DX: T23.152A Burn of first degree of left palm, initial encounter (principal); I10 Essential (primary) hypertension; I25.10 Atherosclerotic heart disease of native coronary artery without angina pectoris; E66.9 Obesity, unspecified; Z79.899 Other long term (current) drug therapy; Z91.018 Allergy to other foods; Z88.8 Allergy status to other drugs, medicaments and biological substances; Z88.6 Allergy status to analgesic agent; Z91.048 Other nonmedicinal substance allergy status; X58.XXXA Exposure to other specified factors, initial encounter
CPT/HCPCS: 16000; 99283-25

== ENCOUNTER 2023-09-23 19:38 | Emergency (ER) | payer BC ==
[2023-09-23 19:51] VITALS: BP 137/81
[2023-09-23 19:55] VITALS: PULSE 70
[2023-09-23 20:11] LABS: BASOPHILS ABSOLUTE AUTO 0.02 K/uL (0.00-0.20); BASOPHILS PERCENT AUTO 0.3 % (0.0-2.0); EOSINOPHILS PERCENT AUTO 4.6 % (0.0-5.0); HEMOGLOBIN 14.4 g/dL (13.1-16.8); LYMPHOCYTES ABSOLUTE AUTO 2.82 K/uL (0.50-3.50); LYMPHOCYTES PERCENT AUTO 43.3 % (10.0-50.0); MEAN CORPUSCULAR HEMOGLOBIN 28.4 pg (28.2-33.3); MEAN CORPUSCULAR HGB CONC 33.5 g/dL (31.7-36.0); MEAN CORPUSCULAR VOLUME 84.8 fL (84.0-98.0); MONOCYTES ABSOLUTE AUTO 0.57 K/uL (0.00-1.00); MONOCYTES PERCENT AUTO 8.8 % (2.0-14.0); PLATELET COUNT,PLT 186 K/uL (150-350); RED BLOOD CELL COUNT 5.07 M/uL (4.33-5.41); RED CELL DISTRIBUTION WIDTH 14.4 % (11.2-14.1); WHITE BLOOD CELL COUNT,WBC 6.5 K/uL (4.0-10.2)
[2023-09-23 20:32] LABS: ALANINE AMINOTRANSFERASE,ALT 41 U/L (12-78); ALKALINE PHOSPHATASE 94 IU/L (46-116); ANION GAP 12.9 meq/L (7-15); ASPARTATE AMNIOTRANSFERASE,AST 23 U/L (15-37); BILIRUBIN TOTAL 0.5 mg/dL (0.2-1.0); BLOOD UREA NITROGEN,BUN 19 mg/dL (7-18); CALCIUM 8.7 mg/dL (8.5-10.1); CARBON DIOXIDE,CO2 23.1 mmol/L (21.0-32.0); CHLORIDE,CL 104 mmol/L (98-107); CREATININE 1.13 mg/dL (0.51-1.17); ESTIMATED GFR 75 mL/min (>=60); GLUCOSE RANDOM 93 mg/dL (70-99); MAGNESIUM 2.3 mg/dL (1.8-2.4); POTASSIUM,K 3.5 mmol/L (3.5-5.1); PRO B-TYPE NATRIUR PEPT,BNPPRO 101 pg/mL (0-125); PROTEIN TOTAL,TP 7.7 g/dL (6.4-8.2); SODIUM,NA 140 mmol/L (136-145)
[2023-09-23 20:34] LABS: INR 1.1 (0.9-1.1)
[2023-09-23] MEDS: Ondansetron 4 MG/2 ML SDV IVPUSH ONE (20:41)
[2023-09-23] MEDS: Sodium Chloride 0.9% 10 ML Syringe FLUSH PRN (20:42)
[2023-09-23] MEDS: SUMAtriptan 6 MG/0.5 ML SDV SUBCUT ONE (20:42)
[2023-09-23] MEDS: Aspirin 81 MG Tab.Chew PO ONE (20:43)
[2023-09-23] MEDS: traMADol 50 MG Tab PO ONE (21:15)
[2023-09-23] MEDS: Acetaminophen 500 MG Tab PO ONE (21:15)
[2023-09-23] MEDS: Take Home: traMADol 50 MG, 4 Tab Pack PO ONE (21:16)
[2023-09-23] MEDS ORDERED: Take Home: traMADol 50 MG, 4 Tab Pack ONE (21:17)
[2023-09-23] MEDS: Sodium Chloride 0.9% 1,000 ML IV ONE (21:18)
[2023-09-24] MEDS ORDERED: Aspirin 81 MG Tab.Chew PO ONE (19:57)
== END 2023-09-23 23:19 | disposition home or self-care (01) ==
LOC: LL.ED 19:38
DX: M94.0 Chondrocostal junction syndrome [Tietze] (principal); I10 Essential (primary) hypertension; J44.9 Chronic obstructive pulmonary disease, unspecified; E66.9 Obesity, unspecified; Z91.018 Allergy to other foods; Z91.048 Other nonmedicinal substance allergy status; Z88.8 Allergy status to other drugs, medicaments and biological substances; Z79.899 Other long term (current) drug therapy; Z90.49 Acquired absence of other specified parts of digestive tract
CPT/HCPCS: 36415; 71046; 80053; 83605; 83735; 83880; 84484; 85025; 85379; 85610; 93005; 93010; 96361; 96372; 96374; 99284; 99285; A9270; J2405; J3030; J7030; J3490

== ENCOUNTER 2024-10-09 23:23 | Emergency (ER) | payer BC ==
[2024-10-09] MEDS: Aspirin 81 MG Tab.Chew PO ONE (23:27)
[2024-10-09] MEDS ORDERED: Sodium Chloride 0.9% 10 ML Syringe FLUSH PRN (23:29)
[2024-10-09 23:53] LABS: BASOPHILS ABSOLUTE AUTO 0.04 K/uL (0.00-0.20); BASOPHILS PERCENT AUTO 0.6 % (0.0-2.0); EOSINOPHILS ABSOLUTE AUTO 0.36 K/uL (0.00-0.50); EOSINOPHILS PERCENT AUTO 5.5 % (0.0-5.0); HEMATOCRIT 41.2 % (39.0-49.0); IMMATURE GRAN ABSOLUTE AUTO 0.01 10^3/uL (0.00-0.04); IMMATURE GRAN PERCENT AUTO 0.2 % (0.0-0.4); LYMPHOCYTES ABSOLUTE AUTO 2.99 K/uL (0.50-3.50); LYMPHOCYTES PERCENT AUTO 45.3 % (10.0-50.0); MEAN CORPUSCULAR HEMOGLOBIN 28.7 pg (28.2-33.3); MEAN CORPUSCULAR VOLUME 84.6 fL (84.0-98.0); MONOCYTES ABSOLUTE AUTO 0.56 K/uL (0.00-1.00); MONOCYTES PERCENT AUTO 8.5 % (2.0-14.0); NEUTROPHILS ABSOLUTE AUTO 2.64 K/uL (1.40-7.00); NEUTROPHILS PERCENT AUTO 39.9 % (45.0-80.0); PLATELET COUNT,PLT 185 K/uL (150-350); RED BLOOD CELL COUNT 4.87 M/uL (4.33-5.41); RED CELL DISTRIBUTION WIDTH 13.5 % (11.2-14.1); WHITE BLOOD CELL COUNT,WBC 6.6 K/uL (4.0-10.2)
[2024-10-10] MEDS: Aspirin 81 MG Tab.Chew ONE (00:03)
[2024-10-10 00:14] LABS: INR 1.1 (0.9-1.1); PROTHROMBIN TIME 10.7 SEC (9.0-11.1)
[2024-10-10 00:24] LABS: ALBUMIN 3.5 g/dL (3.4-5.0); ANION GAP 11.9 meq/L (7-15); BILIRUBIN TOTAL 0.3 mg/dL (0.2-1.0); CALCIUM 8.4 mg/dL (8.5-10.1); CARBON DIOXIDE,CO2 25.1 mmol/L (21.0-32.0); CREATININE 1.17 mg/dL (0.51-1.17); EST CRCL DRUG DOSING (CG) 64.96 mL/min; MAGNESIUM 2.3 mg/dL (1.8-2.4); POTASSIUM,K 3.8 mmol/L (3.5-5.1); PROTEIN TOTAL,TP 7.1 g/dL (6.4-8.2)
[2024-10-10 01:05] VITALS: BP 136/82; PULSE 68
== END 2024-10-10 01:05 ==
LOC: LL.ED 23:23
DX: R07.9 Chest pain, unspecified (principal); F45.21 Hypochondriasis; I10 Essential (primary) hypertension; E66.9 Obesity, unspecified; Z91.018 Allergy to other foods; Z91.048 Other nonmedicinal substance allergy status; Z79.899 Other long term (current) drug therapy; Z90.49 Acquired absence of other specified parts of digestive tract
CPT/HCPCS: 36415; 71046; 80053; 83735; 83880; 84484; 85025; 85610; 93005; 93010; 99284; 99285; A9270

== ENCOUNTER 2025-02-07 17:02 | Emergency (ER) | payer BC ==
[2025-02-07] MEDS ORDERED: Sodium Chloride 0.9% 10 ML Syringe FLUSH PRN (17:04)
[2025-02-07] MEDS ORDERED: Naloxone 0.4 MG/ML SDV IVPUSH PRN (17:05)
[2025-02-07] MEDS: Ondansetron 4 MG/2 ML SDV IVPUSH ONE (17:10)
[2025-02-07 17:16] LABS: BASOPHILS ABSOLUTE AUTO 0.02 K/uL (0.00-0.20); BASOPHILS PERCENT AUTO 0.3 % (0.0-2.0); EOSINOPHILS ABSOLUTE AUTO 0.26 K/uL (0.00-0.50); EOSINOPHILS PERCENT AUTO 4.2 % (0.0-5.0); IMMATURE GRAN ABSOLUTE AUTO 0.01 10^3/uL (0.00-0.04); IMMATURE GRAN PERCENT AUTO 0.2 % (0.0-0.4); LYMPHOCYTES ABSOLUTE AUTO 2.55 K/uL (0.50-3.50); LYMPHOCYTES PERCENT AUTO 41.7 % (10.0-50.0); MONOCYTES ABSOLUTE AUTO 0.47 K/uL (0.00-1.00); MONOCYTES PERCENT AUTO 7.7 % (2.0-14.0); NEUTROPHILS ABSOLUTE AUTO 2.81 K/uL (1.40-7.00); NEUTROPHILS PERCENT AUTO 45.9 % (45.0-80.0); PLATELET COUNT,PLT 198 K/uL (150-350); RED BLOOD CELL COUNT 5.46 M/uL (4.33-5.41); RED CELL DISTRIBUTION WIDTH 13.7 % (11.2-14.1); WHITE BLOOD CELL COUNT,WBC 6.1 K/uL (4.0-10.2)
[2025-02-07 17:35] LABS: ALANINE AMINOTRANSFERASE,ALT 53 U/L (12-78); ASPARTATE AMNIOTRANSFERASE,AST 25 U/L (15-37); BILIRUBIN TOTAL 0.6 mg/dL (0.2-1.0); BLOOD UREA NITROGEN,BUN 12 mg/dL (7-18); CARBON DIOXIDE,CO2 23.7 mmol/L (21.0-32.0); CHLORIDE,CL 107 mmol/L (98-107); CREATININE 1.26 mg/dL (0.51-1.17); ESTIMATED GFR 65 mL/min (>=60); GLUCOSE RANDOM 110 mg/dL (70-99); POTASSIUM,K 3.6 mmol/L (3.5-5.1); PROTEIN TOTAL,TP 7.8 g/dL (6.4-8.2); SODIUM,NA 143 mmol/L (136-145)
[2025-02-07 17:42] LABS: LACTIC ACID 2.6 mmol/L (0.4-2.0)
[2025-02-07] MEDS: Iopamidol 612 MG/ML 100 ML Bottle IVPUSH ONE (17:58)
[2025-02-07 18:14] LABS: APPEARANCE,URINE CLEAR (CLEAR); GLUCOSE,URINE NEGATIVE (NEGATIVE)
[2025-02-07 18:15] LABS: OCCULT BLOOD,URINE NEGATIVE (NEGATIVE)
[2025-02-07] MEDS: Ketorolac 30 MG/ML SDV IVPUSH ONE (18:23)
[2025-02-07] MEDS: Take Home: Ketorolac 10 MG Tab, 4 Tab Pack PO ONE (19:50)
[2025-02-07 20:30] VITALS: BP 114/74; PULSE 64
== END 2025-02-07 19:58 | disposition home or self-care (01) ==
LOC: LL.ED 17:02
DX: R10.31 Right lower quadrant pain (principal); I10 Essential (primary) hypertension; M19.90 Unspecified osteoarthritis, unspecified site; E66.9 Obesity, unspecified; Z91.018 Allergy to other foods; Z91.048 Other nonmedicinal substance allergy status; Z91.09 Other allergy status, other than to drugs and biological substances; Z88.8 Allergy status to other drugs, medicaments and biological substances; Z79.82 Long term (current) use of aspirin; Z79.899 Other long term (current) drug therapy; Z90.49 Acquired absence of other specified parts of digestive tract; Z68.32 Body mass index [BMI] 32.0-32.9, adult
CPT/HCPCS: 36415; 74178; 80053; 81003; 83605; 83735; 85025; 96361; 96374; 96375; 99284; A9270; J1171; J1885; J2405; J7030; Q9967; 74176